=== PATIENT | female | born 1960 | race Caucasian/White ===

== ENCOUNTER 2022-03-05 10:38 | Inpatient (IN) ==
[2022-03-05] MEDS ORDERED: MARCAINE 0.5% ONE (11:03)
[2022-03-05] MEDS ORDERED: HEPARIN SODIUM IN D5W 75,000 UNITS/1,500 ML BAG ONE (11:03)
[2022-03-05] MEDS ORDERED: NS 1,000 ML IV 1,000 ML ONE ×2 (11:06→13:25)
[2022-03-05] MEDS ORDERED: ANCEF VIAL 1 GRAM ONE (11:08)
[2022-03-05] MEDS ORDERED: NS 100 ML IV 100 ML ONE (11:08)
[2022-03-05] MEDS: DUONEB 0.5 MG/3 MG (3 mL) NEB ONE ×2 (11:10→11:30)
[2022-03-05] MEDS ORDERED: DUONEB 0.5 MG/3 MG (3 mL) NEB ONE (11:12)
[2022-03-05 11:24] LABS: BASOPHILS # (AUTO) 0.1 X10^3/uL (0.0-0.1); BASOPHILS % (AUTO) 0.8 % (0.2-1.0); EOSINOPHILS # (AUTO) 0.2 x10^3/uL (0.0-0.2); HEMATOCRIT 44.4 % (36.0-47.0); HEMOGLOBIN 14.8 g/dL (12.0-16.0); LYMPHOCYTES # (AUTO) 2.7 X10^3/uL (1.3-2.9); LYMPHOCYTES % (AUTO) 27.5 % (21.0-51.0); MEAN CORPUSCULAR HEMOGLOBIN 29.4 pg (27.0-34.0); MEAN CORPUSCULAR HGB CONC 33.3 g/dL (33.0-35.0); MEAN CORPUSCULAR VOLUME 88.3 fL (80.0-100.0); MEAN PLATELET VOLUME 9.4 fL (7.4-11.0); MONOCYTES # (AUTO) 0.7 x10^3/uL (0.3-0.8); MONOCYTES % (AUTO) 6.6 % (0.0-13.0); NEUTROPHILS # (AUTO) 6.3 x10^3/uL (2.2-4.8); NEUTROPHILS % (AUTO) 63.1 % (42.0-75.0); RED BLOOD COUNT 5.03 X10^6/uL (3.5-5.4); RED CELL DISTRIBUTION WIDTH 15.1 % (11.6-16.5)
[2022-03-05 11:35] LABS: ALANINE AMINOTRANSFERASE 14 Units/L (12-78); ALBUMIN 3.4 g/dL (3.4-5.0); ALKALINE PHOSPHATASE 119 Units/L (46-116); ASPARTATE AMINO TRANSFERASE 12 Units/L (15-37); BLOOD UREA NITROGEN 15 mg/dL (7-18); CALCIUM 8.7 mg/dL (8.5-10.1); CARBON DIOXIDE 29.5 mmol/L (21-32); CHLORIDE 103 mmol/L (98-107); COR NA(FOR HYPERGLY) 138 mmol/L (136-145); CREATININE 0.81 mg/dL (0.55-1.02); SODIUM 138 mmol/L (136-145); TOTAL PROTEIN 7.5 g/dL (6.4-8.2); eGFR NON BLACK RACES > 60 (>60)
[2022-03-05] MEDS ORDERED: ULTANE GAS IN ONE (11:47)
[2022-03-05] MEDS ORDERED: FENTANYL VIAL INJ 100 mcg ONE (11:47)
[2022-03-05] MEDS ORDERED: PRECEDEX INJ VIAL IVP ONE (11:47)
[2022-03-05] MEDS ORDERED: XYLOCAINE 2 % (PLAIN) ONE (11:47)
[2022-03-05] MEDS ORDERED: VERSED ONE (11:47)
[2022-03-05] MEDS ORDERED: KETAMINE HCL ONE (11:47)
[2022-03-05] MEDS ORDERED: OFIRMEV IV 1000 MG VIAL 1,000 MG/100 ML VIAL IV ONE (11:58)
[2022-03-05] MEDS ORDERED: DIPRIVAN VIAL 40 ML ONE (12:09)
[2022-03-05] MEDS ORDERED: DILAUDID INJ ONE (12:20)
[2022-03-05] MEDS ORDERED: PROTAMINE SULFATE 50 MG VIAL ONE (12:36)
[2022-03-05] MEDS ORDERED: EPHEDRINE SULFATE INJ ONE (12:42)
--- NOTE | 2022-03-05 12:49 | OR.IMMED ---
IMMEDIATE POST-OP NOTE Immediate Post-Op Note Pre-Op Diagnosis: Bilateral iliac vein compression Post-Op Diagnosis: same Procedure: bilateral iliac venograms, bilateral iliac vein intravascular ultrasound, stenting left common and external iliac vein Description of Procedure: see operative summary Surgeon/Supplier Quality Engineer: Kizzy Findings: > 50 % compression both common and external iliac veins Specimens Removed: none Estimated Blood Loss: 50 cc Drains: NONE Complications: none Discharge Progress Notes: To same day surgery and will discharge home when ready. Follow up one week. Continue usual home medications including daily asp irin . Will add Xarelto, 2. 5 mg p o BID for 3 months. Patient will require stenting of the right iliac vein in the future . Condition: Stable Final Diagnosis: bilateral iliac vein compression
[2022-03-05] MEDS ORDERED: NEO-SYNEPHRINE INJ ONE (12:53)
[2022-03-05] MEDS ORDERED: ZEMURON 100 MG VIAL ONE (13:00)
[2022-03-05] MEDS ORDERED: AMIDATE INJ 40 MG VIAL ONE (13:00)
[2022-03-05] MEDS ORDERED: VASOSTRICT INJ 20 UNITS VIAL ONE (13:15)
[2022-03-05 13:42] LABS: CKMB % 0.8 % (<4)
--- NOTE | 2022-03-05 14:02 | CT ---
HISTORYPOSS. PE breast carcinoma lymph node dissectionSTUDYCTA CHESTCOMPARISONChest radiograph 01/04/2022TECHNIQUEMultiple CT axial images of the chest were obtained with IV contrast. Coronal and sagittal images were reconstructed. 3D reconstructions using axial MIPS imaging was performed and reviewed. Dose reduction techniques included Automated Exposure Control (AEC) and adjustment of mA and kV.Stenoses are measured using NASCET criteria.FINDINGSPulmonary arteries are identified to segmental branches. There are no pulmonary emboli.The heart is normal in size. Atherosclerotic calcification is present in the coronary arteries.The pulmonary artery and aorta have a normal caliber. No mediastinal mass or significant lymphadenopathy.The thyroid has a normal size and configuration. No axillary mass or significant axillary lymphadenopathy is identified. Surgical clips are present in the left axilla.The lungs are well inflated with no pneumonia or pleural effusion. Minimal paraseptal emphysema and centrilobular emphysema is present. Probable fissure lymph node in the right major fissure, image 91 series 7. Other tiny nodules are present. Largest measures 3 mm image 94 series 7 right middle lobe.Typically, this does not require any routine surveillance. If the patient is high risk for cancer, then you might consider an optional follow up chest CT in 12 months. This follow-up is based on recommendations established by the Fleischner Society 2017.Stone in the upper left kidney measures about 7 mm. No obvious hydronephrosis.Surgical clips are present in the gallbladder fossa from a cholecystectomy.Degenerative changes are present in the spine.IMPRESSION1. No pulmonary emboli2. Left renal calculus3. Few pulmonary nodules, see note4. EmphysemaElectronically signed by: Urbano Charlton (Mar 05, 2022 14:02:10)
[2022-03-05] MEDS ORDERED: DOPAMINE IV PREMIX 400 MG/250 ML 400 MG/250 ML BAG IV ONE (14:03)
[2022-03-05] MEDS ORDERED: DOPAMINE IV PREMIX 400 MG/250 ML 400 MG/250 ML BAG IV PRN (14:19)
--- NOTE | 2022-03-05 14:51 | RAD ---
HISTORYRelevant Clinical Information DYSPNEA.brSTUDYCHEST, 1 VIEWCOMPARISONFebruary 2021FINDINGSThe trachea is midline. The cardiac silhouette is unremarkable. The lungs are clear without focal infiltrate or effusion. The bony thorax is unremarkable.IMPRESSIONNo acute cardiopulmonary disease.Electronically signed by: LONNY ZENG (Mar 05, 2022 14:50:33)
[2022-03-05] MEDS: LR 1,000 ML IV 1,000 ML IV SCH (15:53)
[2022-03-05] MEDS: NS IV PRN (15:54)
[2022-03-05] MEDS: DOPAMINE HCL IV PRN (15:54)
[2022-03-05] MEDS: PROVENTIL NEB TX 0.083% 2.5MG/ 3ML NEB SCH ×2 (16:28→20:15)
[2022-03-05] MEDS ORDERED: HumaLOG SC PRN (16:29)
[2022-03-05] MEDS: NovoLIN R (or HumuLIN R) SUBCUT PRN ×2 (16:56→21:19)
[2022-03-05 18:24] LABS: CKMB % 1.6 % (<4); CREATINE KINASE MB 1.7 ng/mL (0-4.0)
[2022-03-05] MEDS: PULMICORT NEB TX 0.5 MG NEB SCH (20:15)
[2022-03-05] MEDS: SNACK - Diabetic Appropriate PO SCH (21:00)
[2022-03-05] MEDS ORDERED: FLEXERIL TAB 10 MG PO PRN (21:41)
[2022-03-05] MEDS ORDERED: NovoLIN R (or HumuLIN R) SC PRN (21:41)
[2022-03-05] MEDS ORDERED: NITROSTAT SL PRN (21:47)
--- NOTE | 2022-03-05 21:55 | PCM.PROG ---
Progress Note Progress Note for Day of Date of Exam: 03/05/22 Subjective Subjective: 61 year old morbidly obese female with a significant history of tobacco abuse , who had lower extremity arterial intervention recently and today had stenting of an iliac vein . This was done under IV sedation and as she was waking up she complained of shortness of breath. She became hypotensive. CT scan of the pulmonary arteries with contrast showed no pulmonary emboli . She required dopamine support of blood pressure. EKG showed only right bundle branch block with no acute ischemic changes. Initial troponin was negative. Repeat troponin at six hours was mildly elevated at 196. Denies chest pain. No further shortness of breath. He had a Lexiscan stress test before this procedure which was interpreted as negative for ischemia. Past Medical Family Social History Past Med/Fam/Surg Hx: No changes since H&P Allergies: Allergies codeine Allergy (Verified 01/08/22 09:58) Sulfa (Sulfonamide Antibiotics) [SULFA] Allergy (Verified 01/08/22 09:58) Vital Signs and I&O's Vital Signs: Temperature 97.9 F Pulse Rate 120 Respiratory Rate 18 Blood Pressure 105/58 O2 Sat by Pulse Oximetry 95 Intake and Output: Intake & Output 03/02/22 03/03/22 03/04/22 03/05/22 23:59 23:59 23:59 23:59 Intake Total 600 / 600 Output Total 50 / 50 Balance 550 / 550 Physical Exam Oriented: Normal Eyes: Normal Cardiovascular: Tachycardia and Other (Mildly hypotensive requiring dopamine to supporter blood pressure ) Tenderness: Normal Mood Description: Calm Speech Pattern: Clear and Appropriate Laboratory and Diagnostics Result Diagrams: 03/06/22 04:20 03/06/22 04:20 Labs: Laboratory WBC 10.0 X10^3/uL (3.6-10.0) 03/05/22 11:15 RBC 5.03 X10^6/uL (3.5-5.4) 03/05/22 11:15 Hgb 14.8 g/dL (12.0-16.0) 03/05/22 11:15 Hct 44.4 % (36.0-47.0) 03/05/22 11:15 MCV 88.3 fL (80.0-100.0) 03/05/22 11:15 MCH 29.4 pg (27.0-34.0) 03/05/22 11:15 MCHC 33.3 g/dL (33.0-35.0) 03/05/22 11:15 RDW 15.1 % (11.6-16.5) 03/05/22 11:15 Plt Count 228 X10^3/uL (150.0-450.0) 03/05/22 11:15 MPV 9.4 fL (7.4-11.0) 03/05/22 11:15 Neut % (Auto) 63.1 % (42.0-75.0) 03/05/22 11:15 Lymph % (Auto) 27.5 % (21.0-51.0) 03/05/22 11:15 [place] % (Auto) 6.6 % (0.0-13.0) 03/05/22 11:15 Eos % (Auto) 2.0 % (0.9-2.9) 03/05/22 11:15 Baso % (Auto) 0.8 % (0.2-1.0) 03/05/22 11:15 Neut # (Auto) 6.3 x10^3/uL (2.2-4.8) H 03/05/22 11:15 Lymph # (Auto) 2.7 X10^3/uL (1.3-2.9) 03/05/22 11:15 [place] # (Auto) 0.7 x10^3/uL (0.3-0.8) 03/05/22 11:15 Eos # (Auto) 0.2 x10^3/uL (0.0-0.2) 03/05/22 11:15 Baso # (Auto) 0.1 X10^3/uL (0.0-0.1) 03/05/22 11:15 Absolute Nucleated RBC 0.1 /100WBC 03/05/22 11:15 Sodium 138 mmol/L (136-145) 03/05/22 11:15 Corrected Sodium 138 mmol/L (136-145) 03/05/22 11:15 Potassium 3.9 mmol/L (3.5-5.1) 03/05/22 11:15 Chloride 103 mmol/L (98-107) 03/05/22 11:15 Carbon Dioxide 29.5 mmol/L (21-32) 03/05/22 11:15 BUN 15 mg/dL (7-18) 03/05/22 11:15 Creatinine 0.81 mg/dL (0.55-1.02) 03/05/22 11:15 Est GFR (MDRD) Af Amer > 60 (>60) 03/05/22 11:15 Est GFR (MDRD) Non-Af > 60 (>60) 03/05/22 11:15 Glucose 120 mg/dL (65-99) H 03/05/22 11:15 POC Glucose (mg/dL) 263 mg/dL (65-99) H 03/05/22 19:40 Calcium 8.7 mg/dL (8.5-10.1) 03/05/22 11:15 Corrected Calcium TNP 03/05/22 11:15 Total Bilirubin 0.30 mg/dL (0.2-1.0) 03/05/22 11:15 AST 12 Units/L (15-37) L 03/05/22 11:15 ALT 14 Units/L (12-78) 03/05/22 11:15 Alkaline Phosphatase 119 Units/L (46-116) H 03/05/22 11:15 Creatine Kinase 107 Units/L (26-192) 03/05/22 17:47 CK-MB (CK-2) 1.7 ng/mL (0-4.0) 03/05/22 17:47 CK/CKMB % Calc 1.6 % (<4) 03/05/22 17:47 Troponin I High Sens 197.6 ng/L (4.0-60.0) H* 03/05/22 17:47 Total Protein 7.5 g/dL (6.4-8.2) 03/05/22 11:15 Albumin 3.4 g/dL (3.4-5.0) 03/05/22 11:15 Globulin 4.1 g/dL (2.5-4.5) 03/05/22 11:15 Albumin/Globulin Ratio 0.8 Ratio (1.1-2.1) L 03/05/22 11:15 SARS CoV-2 RNA Rapid SUZIE Negative (NEGATIVE) 03/05/22 10:55 Plan (1) Shortness of breath: Status: Acute Plan: transfer patient to ICU and continue to observe. Remain NPO for now. Dopamine to support blood pressure .Will consult Internal Medicine. (2) Hypotension: Status: Acute
[2022-03-05] MEDS: LYRICA CAP 150 mg PO SCH (23:30)
[2022-03-06] MEDS ORDERED: ACCUNEB 1.25 MG NEBULE NEB SCH
[2022-03-06] MEDS: NS IV PRN (01:49)
[2022-03-06] MEDS: DOPAMINE HCL IV PRN (01:49)
[2022-03-06] MEDS: LR 1,000 ML IV 1,000 ML IV SCH (05:27)
[2022-03-06] MEDS: NovoLIN R (or HumuLIN R) SUBCUT PRN ×2 (05:53→10:34)
[2022-03-06] MEDS: LYRICA CAP 150 mg PO SCH ×3 (05:55→21:15)
[2022-03-06] MEDS: PriLOSEC PO SCH (08:14)
[2022-03-06] MEDS: ASPIRIN 81 MG CHEWTAB PO SCH (08:14)
[2022-03-06] MEDS: TENORMIN PO SCH (08:15)
[2022-03-06] MEDS: ZOLOFT PO SCH (08:15)
[2022-03-06] MEDS: TRICOR TAB 145 MG PO SCH (08:15)
[2022-03-06] MEDS: PROVENTIL NEB TX 0.083% 2.5MG/ 3ML NEB SCH ×4 (08:20→20:07)
[2022-03-06] MEDS: PULMICORT NEB TX 0.5 MG NEB SCH ×2 (08:20→20:07)
[2022-03-06] MEDS ORDERED: LASIX PO SCH (09:00)
[2022-03-06] MEDS ORDERED: LIPITOR TAB 20 MG PO SCH (09:00)
[2022-03-06] MEDS ORDERED: REFLEX: PROVENTIL NEB & PulmiCORT NEB~ NEB SCH (09:00)
[2022-03-06 09:25] LABS: BASOPHILS # (AUTO) 0.1 X10^3/uL (0.0-0.1); BASOPHILS % (AUTO) 0.5 % (0.2-1.0); EOSINOPHILS # (AUTO) 0.1 x10^3/uL (0.0-0.2); EOSINOPHILS % (AUTO) 0.3 % (0.9-2.9); HEMATOCRIT 43.4 % (36.0-47.0); LYMPHOCYTES % (AUTO) 11.8 % (21.0-51.0); MEAN CORPUSCULAR HGB CONC 32.4 g/dL (33.0-35.0); MEAN CORPUSCULAR VOLUME 89.7 fL (80.0-100.0); MEAN PLATELET VOLUME 10.2 fL (7.4-11.0); MONOCYTES % (AUTO) 6.1 % (0.0-13.0); NEUTROPHILS # (AUTO) 13.9 x10^3/uL (2.2-4.8); NEUTROPHILS % (AUTO) 81.3 % (42.0-75.0); RED BLOOD COUNT 4.83 X10^6/uL (3.5-5.4); RED CELL DISTRIBUTION WIDTH 15.5 % (11.6-16.5); WHITE BLOOD COUNT 17.1 X10^3/uL (3.6-10.0)
[2022-03-06 09:35] LABS: ALANINE AMINOTRANSFERASE 19 Units/L (12-78); ALKALINE PHOSPHATASE 102 Units/L (46-116); ASPARTATE AMINO TRANSFERASE 16 Units/L (15-37); BLOOD UREA NITROGEN 15 mg/dL (7-18); CALCIUM 8.1 mg/dL (8.5-10.1); CARBON DIOXIDE 26.6 mmol/L (21-32); CHLORIDE 103 mmol/L (98-107); COR CA(FOR HYPOALB) 8.9 mg/dL (8.5-10.1); COR NA(FOR HYPERGLY) 139 mmol/L (136-145); CREATININE 1.03 mg/dL (0.55-1.02); SODIUM 135 mmol/L (136-145); TOTAL PROTEIN 6.1 g/dL (6.4-8.2); eGFR NON BLACK RACES 58 (>60)
--- NOTE | 2022-03-06 09:49 | DR.CONSULT ---
CONSULT Consultation for Day of: Date: 03/06/22 Chief Complaint Chief Complaint: Patient admitted after outpatient procedure, left iliac stenting. Allergies Allergies Allergy/AdvReac Type Severity Reaction Status Date / Time codeine Allergy Verified 01/08/22 09:58 Sulfa (Sulfonamide Allergy Verified 01/08/22 09:58 Antibiotics) [SULFA] History of Present Illness History of Present Illness: Ms Andrews is a 61y/o female who had outpatient surgery yesterday for left iliac vein stenting. Patient had no complications during the procedure. After the procedure, she was noted to be hypotensive with dyspnea and chest pain. Patient does not recall this happening. She was admitted to ICU for closer monitoring. CT-chest was done which did not show PE. Patient was started on dopamine for hypotension. Her first set of cardiac enzymes were negative, 2nd troponin was elevated. She did not have any acute EKG changes. Patient has not had any chest pain overnight. Denies chest pain on exam. She is currently on 2L NC. She states she feels fine. She had a stress test in 2019, negative for ischemia. She also reports possibly having a calcium score which w as also normal. She sees cardiology outpatient. She states she was told in the past that she has a elevated heart rate. She is not sure if she has atrial fibrillation but does take atenolol and Xarelto. Dr Durand consulted medicine for further evaluation. Patient denies having any chest pain prior to the procedure Labs/imaging reviewed LARA score: 3 - intermediate risk Plan: repeat CBC, CMP, follow up on cardiac enzymes. Repeat EKG. Patient denies chest pain or any symptoms at this time. Wean dopamine as tolerated to keep MAP > 65. Patient is currently on 4mcg/hr. Will start heparin drip. Continue hydration with IVF. Hold all anti-hypertensives. Nitro prn for chest pain. Wean O2 as tolerated to keep sats > 92%. Continue home medications. Monitor AM labs/imaging. Past Medical History Past Medical History: Diabetes, Dyslipidemia and Hypertension Social History Does patient currently use any type of tobacco product: Yes Have you used tobacco products in the last 12 months: Yes Type of Tobacco Use: Cigarettes Packs per day or dips/chews per day: LESS THAN 1 PACK DAILY Alcohol Use: None Drug Use: None Medications Home Medications: codeine Allergy (Verified 01/08/22 09:58) Sulfa (Sulfonamide Antibiotics) [SULFA] Allergy (Verified 01/08/22 09:58) CONTINUE taking the following medications albuterol [Ventolin] 108 mcg INHALATION QID 03/05/22 [History] aspirin 81 mg PO DAILY 03/05/22 [History] atenolol 25 mg PO DAILY 03/05/22 [History] atorvastatin 20 mg PO DAILY 03/05/22 [History] budesonide-formoterol [Symbicort] 2 inh INHALATION DAILY 03/05/22 [History] cholecalciferol (vitamin D3) 50 mcg PO DAILY 03/05/22 [History] dulaglutide [Trulicity] 1.5 mg SUBCUT WEEKLY 03/05/22 [History] ergocalciferol (vitamin D2) 1.25 mcg PO WEEKLY 03/05/22 [History] exemestane 25 mg PO DAILY 03/05/22 [History] fenofibrate nanocrystallized 145 mg PO DAILY 03/05/22 [History] furosemide 40 mg PO DAILY 03/05/22 [History] insulin regular hum U-500 conc [Humulin R U-500 (Conc) Insulin] 03/05/22 [History] lisinopril 2 mg PO DAILY 03/05/22 [History] meloxicam [Mobic] 7.5 mg PO ONCE 03/05/22 [History] nitroglycerin [Nitrostat] 0.4 mg SUBLINGUAL DIRECTED PRN 03/05/22 [History] nystatin [Nystop] 100,000 unit TOPICAL BID 03/05/22 [History] omega-3 fatty acids [[place] 3] 1,000 mg PO TID 03/05/22 [History] omeprazole 20 mg PO DAILY 03/05/22 [History] pregabalin [Lyrica] 150 mg PO TID 03/05/22 [History] sertraline 50 mg PO DAILY 03/05/22 [History] Review of Systems Constitutional: No Symptoms Reported Eyes: No Symptoms Reported ENT: No Symptoms Reported Respiratory: Shortness of Breath Cardiovascular: denies Chest Pain, Palpitations and Edema Gastrointestinal: No Symptoms Reported Genitourinary: No Symptoms Reported Musculoskeletal: No Symptoms Reported Skin: No Symptoms Reported Neurological: No Symptoms Reported Physical Exam Vital Signs: Temperature 98.9 F Pulse Rate 108 Respiratory Rate 19 Blood Pressure 115/56 O2 Sat by Pulse Oximetry 96 Oriented: Normal Ear: Normal Nose: Normal Throat: Normal Respiratory: Clear Throughout Cardiovascular: Tachycardia Auscultation: Bowel Sounds: Normal Palpation: Normal Tenderness: Normal Skin: Normal and Other (left groin - no signs of hematoma, non-tender ) Musculoskeletal: Normal Psychiatric: Normal Mood Description: Calm Affect: Normal Speech Pattern: Clear and Appropriate Plan (1) Shortness of breath: Status: Acute (2) Hypotension: Status: Acute Qualifiers: Hypotension type: postprocedural hypotension Qualified Code(s): I95.81 - Postprocedural hypotension (3) NSTEMI (non-ST elevated myocardial infarction): Status: Acute (4) HLD (hyperlipidemia): Status: Acute Qualifiers: Hyperlipidemia type: unspecified Qualified Code(s): E78.5 - Hyperlipidemia, unspecified (5) PVD (peripheral vascular disease): Status: Acute (6) Diabetes: Status: Acute Qualifiers: Diabetes mellitus complication status: without complication 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
[2022-03-06] MEDS ORDERED: LOVENOX INJ 40 MG SYR SC SCH (10:00)
[2022-03-06 10:06] LABS: CKMB % 2.3 % (<4); CREATINE KINASE MB 2.1 ng/mL (0-4.0)
[2022-03-06 10:23] VITALS: BMI 38.9
[2022-03-06] MEDS ORDERED: HEPARIN SODIUM INJ 5000 UNITS IVP ONE (12:22)
[2022-03-06] MEDS: HEPARIN SODIUM IN D5W 25,000 UNITS/500 ML BAG IV PRN (12:45)
[2022-03-06] MEDS ORDERED: HumaLOG SC ONE (13:31)
[2022-03-06] MEDS ORDERED: NovoLIN R (or HumuLIN R) SC PRN (14:07)
[2022-03-06] MEDS: NS 1,000 ML IV 1,000 ML IV SCH (15:25)
[2022-03-06 15:44] LABS: CKMB % 2.1 % (<4); CREATINE KINASE MB 3.3 ng/mL (0-4.0)
--- NOTE | 2022-03-06 15:55 | DR.OPNOTE ---
OP NOTE Pre-Op Diagnosis: Bilateral iliac vein compression Post-Op Diagnosis: same Procedure Date Date Of Procedure: 03/05/22 Procedure: PROCEDURE: bilateral iliac venograms, bilateral iliac vein IVUS, stenting left iliac vein NARRATIVE: The patient was taken to the operating suite and placed in the Supine position. She was given intravenous sedation which was supervised by myself. Time out for the procedure obtained . Both groins had been prepped and draped in sterile fashion. Ultrasound used to identify the left common femoral vein and the skin overlying it infiltrated with 0. 5% Marcaine . Ultrasound used to guide puncture of the left common femoral vein and a 0. 012 inch guide wire placed without difficulty. Incision made over the guidewire at the skin edge with a number 11 knife blade and a micro sheath placed over the guide wire into the left common femoral vein. The small wire exchanged for a 0. 035 inch Advantage glidewire and the small sheath exchanged for a 10 Fr. vascular sheath. Ultrasound used to identify the right common femoral vein and the skin overlying it infiltrated with 0. 5% Marcaine. Ultrasound used to guide puncture of the right common femoral vein and a 0. 012 inch guidewire placed without difficulty. Incision made over the guide wire at the skin edge with a number 11 knife blade and a micro sheath placed over the guide wire into the right common femoral vein. The small guidewire exchange for a 0. 035 inch Advantage glidewire and the small sheath exchanged for a 10 [place] vascular sheath. Patient was administered 5000 units of intravenous Heparin at this point. Bilateral iliac being venograms carried out suggesting significant compression of both common iliac veins. This was confirmed with bilateral iliac vein intravascular ultrasound showed greater than 50% compression of both common iliac veins. A 16 mm by 90 mm Venous Wall stent was placed on the left covering the area of compression of the left common iliac vein extending into the external iliac vein. This was ballooned open with a 16 mm x 60 mm esophageal balloon. Post-procedure intravascular ultrasound confirmed an excellent result. Wires and sheaths removed from each groin and the patient given 30 mg of IV protamine. Direct pressure held over each puncture site for 10 minutes then covered with a hemostatic dressing. During the procedure there was no problems noted .On the patient coming out of sedation she complained of shortness of breath and was hypotensive. She was taken to the CT scanner where a stat CT scan showed no evidence of pulmonary emboli. Chest x-ray showed no abnormalities . She required a dopamine drip and will be transferred to the ICU. Initial cardiac enzymes were negative. Type of Anesthesia: Local (0.5 % Marcaine ) Anesthesia Comment: plus MAC Findings: Bilateral iliac vein compression > 50% each side Specimen/Pathology: none Type of Fluids Used:: Lactated Ringers Total Amount of Fluid Infused:: 400 cc EBL: 50 cc Drains/Tubes Placed: None Hardware: Stent placed left iliac vein Complications:: none Needle/Sponge Count:: correct Disposition/Condition: Pt. tolerated procedure without difficulty. Extubated in the OR and taken to PACU in stable condition.
[2022-03-06] MEDS: HumaLOG SC PRN ×2 (16:52→20:26)
[2022-03-06] MEDS: SNACK - Diabetic Appropriate PO SCH (19:47)
[2022-03-06] MEDS ORDERED: LANTUS SC SCH (21:00)
--- NOTE | 2022-03-06 23:54 | NOTE.SOAP ---
Soap Note Note for Day of Date of Exam: 03/06/22 Subjective Data Subjective Data: POD # 1 after stenting left iliac vein . Had SOB post op , negative CT for PE. . No EKG changes . Elevation of Troponin. Seen by Dr. Gaytan in consultation and started on Heparin drip. Was on Dopamine this AM and was tachycardic. Now weaned from the dopamine, no chest pain, stable BP and not tachycardic Objective Data Pulse Rate: 86 Respiratory Rate: 16 Blood Pressure: 146/57 O2 Sat by Pulse Oximetry: 93 Objective Data: HgB=14.0 Left leg feels better after left iliac vein stenting. Assessment Assessment: Await final input from internal medicine. Hopefully can be discharged home soon. Plan Plan: as above
[2022-03-07 02:02] LABS: BASOPHILS # (AUTO) 0.1 X10^3/uL (0.0-0.1); BASOPHILS % (AUTO) 0.7 % (0.2-1.0); EOSINOPHILS # (AUTO) 0.3 x10^3/uL (0.0-0.2); EOSINOPHILS % (AUTO) 2.6 % (0.9-2.9); HEMATOCRIT 40.4 % (36.0-47.0); LYMPHOCYTES # (AUTO) 2.7 X10^3/uL (1.3-2.9); LYMPHOCYTES % (AUTO) 26.4 % (21.0-51.0); MEAN CORPUSCULAR HEMOGLOBIN 28.9 pg (27.0-34.0); MEAN CORPUSCULAR HGB CONC 32.1 g/dL (33.0-35.0); MEAN CORPUSCULAR VOLUME 90.2 fL (80.0-100.0); MEAN PLATELET VOLUME 9.9 fL (7.4-11.0); MONOCYTES # (AUTO) 0.5 x10^3/uL (0.3-0.8); MONOCYTES % (AUTO) 4.9 % (0.0-13.0); NEUTROPHILS # (AUTO) 6.8 x10^3/uL (2.2-4.8); NEUTROPHILS % (AUTO) 65.4 % (42.0-75.0); RED BLOOD COUNT 4.48 X10^6/uL (3.5-5.4); WHITE BLOOD COUNT 10.4 X10^3/uL (3.6-10.0)
[2022-03-07 02:08] LABS: BLOOD UREA NITROGEN 12 mg/dL (7-18); CALCIUM 8.2 mg/dL (8.5-10.1); CARBON DIOXIDE 25.3 mmol/L (21-32); CHLORIDE 101 mmol/L (98-107); COR NA(FOR HYPERGLY) 140 mmol/L (136-145); CREATININE 0.95 mg/dL (0.55-1.02); SODIUM 137 mmol/L (136-145); eGFR NON BLACK RACES > 60 (>60)
[2022-03-07 02:41] LABS: ALANINE AMINOTRANSFERASE 15 Units/L (12-78); ALBUMIN 3.1 g/dL (3.4-5.0); ALKALINE PHOSPHATASE 103 Units/L (46-116); ASPARTATE AMINO TRANSFERASE 18 Units/L (15-37); CKMB % 1.6 % (<4); COR CA(FOR HYPOALB) 8.9 mg/dL (8.5-10.1); CREATINE KINASE 192 Units/L (26-192); CREATINE KINASE MB 3.1 ng/mL (0-4.0); TOTAL PROTEIN 6.9 g/dL (6.4-8.2)
[2022-03-07] MEDS: NS 1,000 ML IV 1,000 ML IV SCH (05:29)
[2022-03-07] MEDS: LYRICA CAP 150 mg PO SCH (05:29)
[2022-03-07] MEDS: HumaLOG SC PRN ×2 (05:30→11:26)
[2022-03-07] MEDS: HEPARIN SODIUM IN D5W 25,000 UNITS/500 ML BAG IV PRN (06:25)
[2022-03-07] MEDS: ASPIRIN 81 MG CHEWTAB PO SCH (08:04)
[2022-03-07] MEDS: TRICOR TAB 145 MG PO SCH (08:05)
[2022-03-07] MEDS: ZOLOFT PO SCH (08:05)
[2022-03-07] MEDS: TENORMIN PO SCH (08:05)
[2022-03-07] MEDS: PriLOSEC PO SCH (08:05)
[2022-03-07] MEDS: PULMICORT NEB TX 0.5 MG NEB SCH (08:30)
[2022-03-07] MEDS: PROVENTIL NEB TX 0.083% 2.5MG/ 3ML NEB SCH ×2 (08:30→13:12)
[2022-03-07] MEDS ORDERED: LIPITOR TAB 20 MG PO SCH (09:00)
--- NOTE | 2022-03-07 12:15 | DR.CARD ---
Cardiology Consult Consultation for Day of: Date: 03/07/22 Chief Complaint Chief Complaint: Abnormal Troponins Allergies Allergies Allergy/AdvReac Type Severity Reaction Status Date / Time codeine Allergy Verified 01/08/22 09:58 Sulfa (Sulfonamide Allergy Verified 01/08/22 09:58 Antibiotics) [SULFA] History of Present Illness History of Present Illness: Patient is a 61yo F with PMHx DM2, HTN, HLD, PVD, previous HI, smoker. She was at [facility] for venous procedure. When in postop she experienced significant shortness of of breath and "felt like she was about to ." She was hypotensive and ecg showed RBBB with st seg changes. They stabilized her BP with dopamine drip and collected a CTA which was negative for PE. She then had trops drawn which were positive. Cardiology was consulted. Patient shares that she had not been experienced chest pain prior to admission. While inpatient she has experienced intermittent chest discomfort described as a sharp chest pain shooting from right lower chest to upper left chest. Past Medical History Past Medical History: Diabetes, Dyslipidemia, Hypertension and HI (reports HI 2006/2007) Past Surgical History Surgical History: Angioplasty/Stents (Venous) and Mastectomy Additional Surgical History: Cholecystecomy, hysterectomy, back surgery, factor II deficiency Social History Does patient currently use any type of tobacco product: Yes Have you used tobacco products in the last 12 months: Yes Type of Tobacco Use: Cigarettes Packs per day or dips/chews per day: LESS THAN 1 PACK DAILY Alcohol Use: None Drug Use: None Medications Home Medications: codeine Allergy (Verified 01/08/22 09:58) Sulfa (Sulfonamide Antibiotics) [SULFA] Allergy (Verified 01/08/22 09:58) CONTINUE taking the following medications albuterol [Ventolin] 108 mcg INHALATION QID 03/05/22 [History] aspirin 81 mg PO DAILY 03/05/22 [History] atenolol 25 mg PO DAILY 03/05/22 [History] atorvastatin 20 mg PO DAILY 03/05/22 [History] budesonide-formoterol [Symbicort] 2 inh INHALATION DAILY 03/05/22 [History] cholecalciferol (vitamin D3) 50 mcg PO DAILY 03/05/22 [History] dulaglutide [Trulicity] 1.5 mg SUBCUT WEEKLY 03/05/22 [History] ergocalciferol (vitamin D2) 1.25 mcg PO WEEKLY 03/05/22 [History] exemestane 25 mg PO DAILY 03/05/22 [History] fenofibrate nanocrystallized 145 mg PO DAILY 03/05/22 [History] furosemide 40 mg PO DAILY 03/05/22 [History] insulin regular hum U-500 conc [Humulin R U-500 (Conc) Insulin] 03/05/22 [History] lisinopril 2 mg PO DAILY 03/05/22 [History] meloxicam [Mobic] 7.5 mg PO ONCE 03/05/22 [History] nitroglycerin [Nitrostat] 0.4 mg SUBLINGUAL DIRECTED PRN 03/05/22 [History] nystatin [Nystop] 100,000 unit TOPICAL BID 03/05/22 [History] omega-3 fatty acids [[place] 3] 1,000 mg PO TID 03/05/22 [History] omeprazole 20 mg PO DAILY 03/05/22 [History] pregabalin [Lyrica] 150 mg PO TID 03/05/22 [History] sertraline 50 mg PO DAILY 03/05/22 [History] Review of Systems Respiratory: Shortness of Breath Cardiovascular: Chest Pain Gastrointestinal: Nausea Physical Exam Vital Signs: Temperature 97.9 F Pulse Rate 84 Respiratory Rate 20 Blood Pressure 110/51 O2 Sat by Pulse Oximetry 90 Oriented: Normal, Time, Person, Place and Not Oriented Eyes: Normal Ear: Normal Nose: Normal Respiratory: Clear Throughout Cardiovascular: Normal (RRR, no murmur, rub, or gallop); negative Murmur Auscultation: Bowel Sounds: Normal Palpation: Normal Tenderness: Normal Skin: Normal Musculoskeletal: Normal Psychiatric: Normal Mood Description: Calm Affect: Normal Speech Pattern: Clear Medical Decision Making Reason for Consult: Chest Pain Results Reviewed: Previous Record EKG Results: RBBB Labs reviewed: Yes Significant abnormal labs: Trops as above Radiology Reviewed: Yes Significant Abnormal Xray: neg CTA for PE Plan Plan: 1. Abnormal troponins, NSTEMI a. post operative shortness of breath, hypotension, near syncope b. trops 231 --> 152 --> 109 c. ecg RBBB with NSST d. chest pain during inpatient with with major RF for CAD e. [facility]
--- NOTE | 2022-03-07 12:42 | PCM.PROG ---
Progress Note Progress Note for Day of Date of Exam: 03/07/22 Subjective Subjective: Patient seen at bedside, no events overnight. She states she feels better. She denies having any further episodes of chest pain or tightness. She is on 2L NC, sats above 95%. She does use CPAP at night. She has been ambulating to the bathroom. Patient has been off dopamine drip since yesterday afternoon. Her BP has been stable. Labs reviewed: troponin did trend down Plan: continue heparin drip. Will consult cardiology Dr Roberts. Patient does have significant risk factors including obesity, PVD, HTN, HLD, DM and tobacco user. She states she saw her radio personality recently and was told she did not need any further testing. Will f/u on cardiology recommendations. Continue current management as per Dr Durand. Past Medical Family Social History Past Med/Fam/Surg Hx: No changes since H&P Allergies: Allergies codeine Allergy (Verified 01/08/22 09:58) Sulfa (Sulfonamide Antibiotics) [SULFA] Allergy (Verified 01/08/22 09:58) Review of Systems ROS: No change since H&P Vital Signs and I&O's Vital Signs: Temperature 97.9 F Pulse Rate 76 Respiratory Rate 20 Blood Pressure 118/57 O2 Sat by Pulse Oximetry 93 Intake and Output: Intake & Output 03/04/22 03/05/22 03/06/22 03/07/22 23:59 23:59 23:59 23:59 Intake Total 1441 / 1441 4143 / 4143 1080 / 1080 Output Total 50 / 50 1700 / 1700 Balance 1391 / 1391 2443 / 2443 1080 / 1080 Physical Exam Oriented: Normal Eyes: Normal Ear: Normal Nose: Normal Throat: Normal Cardiovascular: Normal (RRR, no murmur, rub, or gallop); negative Murmur Auscultation: Bowel Sounds: Normal Tenderness: Normal Skin: Normal Musculoskeletal: Normal Psychiatric: Normal Mood Description: Calm Affect: Normal Speech Pattern: Clear Laboratory and Diagnostics Result Diagrams: 03/07/22 01:50 03/07/22 01:50 Labs: Laboratory WBC 10.4 X10^3/uL (3.6-10.0) H 03/07/22 01:50 RBC 4.48 X10^6/uL (3.5-5.4) 03/07/22 01:50 Hgb 13.0 g/dL (12.0-16.0) 03/07/22 01:50 Hct 40.4 % (36.0-47.0) 03/07/22 01:50 MCV 90.2 fL (80.0-100.0) 03/07/22 01:50 MCH 28.9 pg (27.0-34.0) 03/07/22 01:50 MCHC 32.1 g/dL (33.0-35.0) L 03/07/22 01:50 RDW 15.0 % (11.6-16.5) 03/07/22 01:50 Plt Count 177 X10^3/uL (150.0-450.0) 03/07/22 01:50 MPV 9.9 fL (7.4-11.0) 03/07/22 01:50 Neut % (Auto) 65.4 % (42.0-75.0) 03/07/22 01:50 Lymph % (Auto) 26.4 % (21.0-51.0) 03/07/22 01:50 [place] % (Auto) 4.9 % (0.0-13.0) 03/07/22 01:50 Eos % (Auto) 2.6 % (0.9-2.9) 03/07/22 01:50 Baso % (Auto) 0.7 % (0.2-1.0) 03/07/22 01:50 Neut # (Auto) 6.8 x10^3/uL (2.2-4.8) H 03/07/22 01:50 Lymph # (Auto) 2.7 X10^3/uL (1.3-2.9) 03/07/22 01:50 [place] # (Auto) 0.5 x10^3/uL (0.3-0.8) 03/07/22 01:50 Eos # (Auto) 0.3 x10^3/uL (0.0-0.2) H 03/07/22 01:50 Baso # (Auto) 0.1 X10^3/uL (0.0-0.1) 03/07/22 01:50 Absolute Nucleated RBC 0.1 /100WBC 03/07/22 01:50 PT 18.3 SECONDS (11.8-14.3) 03/06/22 11:27 INR Target Range - 03/06/22 11:27 INR 1.58 (0.8-1.3) H 03/06/22 11:27 APTT 76.8 SECONDS (22.9-36.5) H 03/07/22 08:08 PTT Comment - 03/07/22 08:08 Sodium 137 mmol/L (136-145) 03/07/22 01:50 Corrected Sodium 140 mmol/L (136-145) 03/07/22 01:50 Potassium 3.9 mmol/L (3.5-5.1) 03/07/22 01:50 Chloride 101 mmol/L (98-107) 03/07/22 01:50 Carbon Dioxide 25.3 mmol/L (21-32) 03/07/22 01:50 BUN 12 mg/dL (7-18) 03/07/22 01:50 Creatinine 0.95 mg/dL (0.55-1.02) 03/07/22 01:50 Est GFR (MDRD) Af Amer > 60 (>60) 03/07/22 01:50 Est GFR (MDRD) Non-Af > 60 (>60) 03/07/22 01:50 Glucose 210 mg/dL (65-99) H 03/07/22 01:50 POC Glucose (mg/dL) 204 mg/dL (65-99) H 03/07/22 11:25 Hemoglobin A1c 6.8 % 03/06/22 04:20 Calcium 8.2 mg/dL (8.5-10.1) L 03/07/22 01:50 Corrected Calcium 8.9 mg/dL (8.5-10.1) 03/07/22 01:50 Total Bilirubin 0.30 mg/dL (0.2-1.0) 03/07/22 01:50 AST 18 Units/L (15-37) 03/07/22 01:50 ALT 15 Units/L (12-78) 03/07/22 01:50 Alkaline Phosphatase 103 Units/L (46-116) 03/07/22 01:50 Creatine Kinase 192 Units/L (26-192) 03/07/22 01:50 CK-MB (CK-2) 3.1 ng/mL (0-4.0) 03/07/22 01:50 CK/CKMB % Calc 1.6 % (<4) 03/07/22 01:50 Troponin I High Sens 109.0 ng/L (4.0-60.0) H* 03/07/22 01:50 Total Protein 6.9 g/dL (6.4-8.2) 03/07/22 01:50 Albumin 3.1 g/dL (3.4-5.0) L 03/07/22 01:50 Globulin 3.8 g/dL (2.5-4.5) 03/07/22 01:50 Albumin/Globulin Ratio 0.8 Ratio (1.1-2.1) L 03/07/22 01:50 SARS CoV-2 RNA Rapid SUZIE Negative (NEGATIVE) 03/05/22 10:55 Plan (1) Shortness of breath: Status: Acute (2) Hypotension: Status: Acute Qualifiers: Hypotension type: postprocedural hypotension Qualified Code(s): I95.81 - Postprocedural hypotension (3) NSTEMI (non-ST elevated myocardial infarction): Status: Acute (4) HLD (hyperlipidemia): Status: Acute Qualifiers: Hyperlipidemia type: unspecified Qualified Code(s): E78.5 - Hyper lipidemia, unspecified (5) PVD (peripheral vascular disease): Status: Acute (6) Diabetes: Status: Acute Qualifiers: Diabetes mellitus complication status: without complication Diabetes mellitus terminal worker insulin use: unspecified chcf insulin use status Diabetes mellitus type: type 2 Qualified Code(s): E11.9 - Type 2 diabetes mellitus without complications (7) COPD (chronic obstructive pulmonary disease): Status: Acute Qualifiers: COPD type: unspecified COPD Qualified Code(s): J44.9 - Chronic obstructive pulmonary disease, unspecified
[2022-03-07 13:58] VITALS: BP 109/59
== END 2022-03-07 13:35 | disposition short-term general hospital (02) | DRG 252 ==
LOC: SURG1 10:38 → ICU 10:38 → OBSVTOIN 13:54
PROVIDERS: ADMIT Surgery; ATTEND Surgery

== ENCOUNTER 2022-07-24 11:19 | Inpatient (IN) ==
[2022-07-24] MEDS ORDERED: NITROSTAT SL PRN (13:53)
[2022-07-24] MEDS ORDERED: PROVENTIL NEB TX 0.083% 2.5MG/ 3ML NEB SCH (14:00)
[2022-07-24] MEDS ORDERED: REFLEX: PROVENTIL NEB & PulmiCORT NEB~ NEB SCH (14:00)
[2022-07-24 14:33] LABS: BASOPHILS # (AUTO) 0.2 X10^3/uL (0.0-0.1); BASOPHILS % (AUTO) 2.2 % (0.2-1.0); EOSINOPHILS # (AUTO) 0.2 x10^3/uL (0.0-0.2); EOSINOPHILS % (AUTO) 1.7 % (0.9-2.9); HEMATOCRIT 45.5 % (36.0-47.0); HEMOGLOBIN 15.2 g/dL (12.0-16.0); LYMPHOCYTES # (AUTO) 2.2 X10^3/uL (1.3-2.9); LYMPHOCYTES % (AUTO) 22.3 % (21.0-51.0); MEAN CORPUSCULAR HEMOGLOBIN 29.4 pg (27.0-34.0); MEAN CORPUSCULAR HGB CONC 33.4 g/dL (33.0-35.0); MEAN PLATELET VOLUME 10.8 fL (7.4-11.0); MONOCYTES # (AUTO) 0.6 x10^3/uL (0.3-0.8); MONOCYTES % (AUTO) 6.4 % (0.0-13.0); NEUTROPHILS # (AUTO) 6.8 x10^3/uL (2.2-4.8); NEUTROPHILS % (AUTO) 67.4 % (42.0-75.0); RED BLOOD COUNT 5.17 X10^6/uL (3.5-5.4); RED CELL DISTRIBUTION WIDTH 14.9 % (11.6-16.5); WHITE BLOOD COUNT 10.1 X10^3/uL (3.6-10.0)
[2022-07-24 14:44] VITALS: BMI 34.0
[2022-07-24] MEDS: DILAUDID INJ IVP PRN ×2 (14:53→19:18)
[2022-07-24] MEDS: LYRICA CAP 150 mg PO SCH ×2 (14:53→21:10)
[2022-07-24] MEDS: LR 1,000 ML IV 1,000 ML IV SCH (15:06)
[2022-07-24 15:07] LABS: ALANINE AMINOTRANSFERASE 20 Units/L (12-78); ALBUMIN 3.6 g/dL (3.4-5.0); ALKALINE PHOSPHATASE 124 Units/L (46-116); ASPARTATE AMINO TRANSFERASE 16 Units/L (15-37); BLOOD UREA NITROGEN 11 mg/dL (7-18); CALCIUM 9.4 mg/dL (8.5-10.1); CARBON DIOXIDE 30.5 mmol/L (21-32); CHLORIDE 98 mmol/L (98-107); COR NA(FOR HYPERGLY) 136 mmol/L (136-145); CREATININE 0.96 mg/dL (0.55-1.02); SODIUM 135 mmol/L (136-145); TOTAL PROTEIN 7.9 g/dL (6.4-8.2); eGFR NON BLACK RACES > 60 (>60)
[2022-07-24] MEDS ORDERED: VENTOLIN or PROAIR HFA IN SCH (17:00)
[2022-07-24] MEDS: PROVENTIL NEB TX 0.083% 2.5MG/ 3ML NEB SCH ×2 (17:00→20:29)
--- NOTE | 2022-07-24 17:13 | VAS ---
Ultrasound bilateral lower extremity venous DopplerIndication: Left leg ischemiaTECHNIQUEDynamic grayscale, color spectral Doppler imaging through the bilateral lower extremity veins compression techniques and spectral analysisFINDINGSThe right common femoral vein, superficial femoral vein throughout its length and popliteal vein are patent and compressible with normal respiratory phasicity. Right posterior tibial vein is patentThe left common femoral vein is patent and compressible with normal respiratory phasicityThe proximal superficial femoral vein is patent proximally.The mid superficial femoral vein is incompletely compressible with partially occlusive thrombus noted.The distal superficial femoral vein is incompletely compressible, with near complete thrombosis. The left popliteal vein is noncompressible with hypoechoic thrombus and no flow, compatible with occlusive thrombosis.The posterior tibial vein is patent on the left.IMPRESSION1. Occlusive thrombus in left popliteal vein extending into the distal superficial femoral vein, with nonocclusive thrombus in the mid left superficial femoral vein.2. The right lower extremity veins are patent.Electronically signed by: MELISSA ZAMARRIPA (Jul 24, 2022 17:11:24)
[2022-07-24] MEDS ORDERED: HEPARIN SODIUM IN D5W 25,000 UNITS/500 ML BAG IV PRN (17:27)
[2022-07-24] MEDS ORDERED: HEPARIN SODIUM INJ 5000 UNITS IVP ONE (17:44)
--- NOTE | 2022-07-24 18:03 | CT ---
HISTORYCRITICAL LEFT LEG ISCHEMIA. Hypertension, diabetes mellitus, and asthma. Stent in the left leg.STUDYCTA AORTA WITH RUNOFFCOMPARISONNoneTECHNIQUEMultiple CT axial images of the abdomen, pelvis, and lower extremity runoff were obtained before and after using IV contrast. 3D reconstructions utilizing axial MIPS imaging was performed and reviewed. Dose reduction techniques including Automated Exposure Control (AEC) and adjustment of mA and kV were utilized.Stenoses are measured using NASCET criteria.FINDINGSWithout contrast:Atherosclerotic calcification is present in the coronary arteries, aorta, and major branches. Surgical clips are present in the gallbladder fossa from a cholecystectomy. Vascular stent is seen in the left iliac venous system. Knee prosthesis on the left.With contrast: Aorta has a normal caliber with no aneurysm, dissection, or stenosis. All 3 mesenteric vessels are patent without significant stenosis. There are 2 arteries to the right kidney and 1 to the left without significant occlusion.Left and right common iliac and external iliac arteries are widely patent. Both internal iliac arteries are patent.Left leg: There is a long occlusion of the left superficial femoral artery. The deep femoral artery is patent and collaterals reconstitute the popliteal artery near the adductor canal. Popliteal artery is patent and gives rise to all 3 branches in the proximal calf. But the posterior tibial artery becomes very tiny in the proximal calf and is not seen distally. Peroneal artery and anterior tibial artery extend into the foot.Right leg: Mild disease seen in the superficial femoral artery near the adductor canal. Popliteal artery is widely patent and gives rise to all 3 branches in the proximal calf. These extend to the foot.Body: Small right lung nodule measures about 5 mm, image 22 series 8. This is unchanged from a chest CT 03/05/2022. This only represents a 5 month time interval for stability.No biliary obstruction. No hydronephrosis. No bowel obstruction.IMPRESSION1. Long segment left SFA occlusion, probably chronic2. Two vessel runoff to the left foot3. No significant inflow or outflow occlusion to the right lower extremityElectronically signed by: Urbano Charlton (Jul 24, 2022 18:01:16)
[2022-07-24 18:11] LABS: INR 1.07 (0.8-1.3)
[2022-07-24] MEDS ORDERED: PULMICORT NEB TX 0.5 MG NEB ONE (19:53)
[2022-07-24] MEDS: NovoLIN R (or HumuLIN R) SC PRN (20:17)
[2022-07-24] MEDS: PULMICORT NEB TX 0.5 MG NEB SCH (20:29)
--- NOTE | 2022-07-24 23:11 | NOTE.SOAP ---
Soap Note Note for Day of Date of Exam: 07/24/22 Subjective Data Subjective Data: Admitted today with pain and swelling of left foot and calf x 4 weeks . In the last few months has had left SFA atherectomy and drug coated balloon angioplasty followed by left iliac vein stenting for iliac vein compression. Hx of Factor 2 clotting deficiency . Had EKG chnages after last procedure and was transferred to [place] where she underwent a negative cardiaac catherization. [employer] placed her on Plavix alone without anticoagulant . US shows occlusive DVT of left popliteal vein and non-occlusive thrombus of the left superficial femoral vein. In addition jacob left SFA is also now occluded . Objective Data Pulse Rate: 75 Respiratory Rate: 18 Blood Pressure: 129/60 O2 Sat by Pulse Oximetry: 96 Objective Data: cyanotic cool left foot with 3 + swelling of the left leg. left leg not acutely ischemic. Assessment Assessment: DVT left popliteal vein, occluded left SFA with 2 vessel runoff. Plan Plan: Plan to start heparin drip. will place left leg venous EKOS catheter in AM and possible Angiojet, possible venous angioplasty. Will need to also address SFA occlusion this hospitalization.
[2022-07-25] MEDS: LR 1,000 ML IV 1,000 ML IV SCH ×3 (02:14→20:50)
[2022-07-25] MEDS: LYRICA CAP 150 mg PO SCH ×3 (05:16→21:21)
[2022-07-25] MEDS: DILAUDID INJ IVP PRN ×6 (05:16→21:43)
[2022-07-25] MEDS ORDERED: MARCAINE 0.5% ONE (06:58)
[2022-07-25] MEDS ORDERED: NS 500 ML IV 1,000 ML IV ONE (06:59)
[2022-07-25] MEDS ORDERED: ACTIVASE CATHFLO ONE (06:59)
[2022-07-25] MEDS ORDERED: ANCEF VIAL 1 GRAM ONE (07:19)
[2022-07-25] MEDS: HEPARIN SODIUM IN D5W 100,000 UNITS/2,000 ML BAG ONE ×2 (07:19→07:50)
[2022-07-25] MEDS ORDERED: NS 1,000 ML IV 1,000 ML ONE (07:20)
[2022-07-25] MEDS ORDERED: NS 100 ML IV 100 ML ONE (07:20)
[2022-07-25] MEDS ORDERED: VERSED ONE ×2 (07:34→08:22)
[2022-07-25] MEDS ORDERED: DIPRIVAN VIAL 20 ML ONE ×2 (07:34→08:34)
[2022-07-25] MEDS ORDERED: FENTANYL VIAL INJ 100 mcg ONE (07:34)
[2022-07-25] MEDS ORDERED: KETAMINE HCL ONE (07:34)
[2022-07-25] MEDS ORDERED: HEPARIN SODIUM INJ 5000 UNITS ONE (08:23)
[2022-07-25] MEDS: NS 500 ML IV 500 ML IV SCH ×2 (08:40→23:52)
[2022-07-25] MEDS: ACTIVASE CATHFLO 12 MG in NS 250 ML IV 228 ML INTRACATH SCH ×2 (08:40→20:29)
[2022-07-25] MEDS: PULMICORT NEB TX 0.5 MG NEB SCH ×2 (08:44→20:15)
[2022-07-25] MEDS: PROVENTIL NEB TX 0.083% 2.5MG/ 3ML NEB SCH ×4 (08:44→20:15)
[2022-07-25] MEDS ORDERED: ACTIVASE CATHFLO 12 MG in NS 250 ML IV 228 ML INTRACATH ONE ×4 (08:59)
[2022-07-25] MEDS ORDERED: HEPARIN SODIUM IN D5W 25,000 UNITS/500 ML BAG INTRACATH PRN (08:59)
[2022-07-25] MEDS ORDERED: NS 500 ML IV 500 ML IV SCH (09:00)
--- NOTE | 2022-07-25 09:06 | OR.IMMED ---
IMMEDIATE POST-OP NOTE Immediate Post-Op Note Pre-Op Diagnosis: DVT left popliteal vein and left SFV Post-Op Diagnosis: same Procedure: U/S guided placement of EKOS catheter in left popliteal and left superficial femoral veins , Thrombolysis left leg DVT Description of Procedure: see operative summary Surgeon/Hat Model: Kizzy Findings: as above Estimated Blood Loss: minimal Complications: none Progress Notes: To ICU for overnight TPA/ EKOS left popliteal and SFV DVT Final Diagnosis: as above
[2022-07-25] MEDS ORDERED: DILAUDID INJ ONE (11:36)
[2022-07-25] MEDS ORDERED: ZESTRIL TAB 20 MG ONE (11:56)
[2022-07-25 12:07] LABS: BASOPHILS # (AUTO) 0.2 X10^3/uL (0.0-0.1); BASOPHILS % (AUTO) 1.2 % (0.2-1.0); EOSINOPHILS # (AUTO) 0.3 x10^3/uL (0.0-0.2); EOSINOPHILS % (AUTO) 2.4 % (0.9-2.9); HEMATOCRIT 42.4 % (36.0-47.0); HEMOGLOBIN 13.9 g/dL (12.0-16.0); LYMPHOCYTES # (AUTO) 2.5 X10^3/uL (1.3-2.9); LYMPHOCYTES % (AUTO) 17.7 % (21.0-51.0); MEAN CORPUSCULAR HEMOGLOBIN 29.1 pg (27.0-34.0); MEAN CORPUSCULAR HGB CONC 32.8 g/dL (33.0-35.0); MEAN CORPUSCULAR VOLUME 88.7 fL (80.0-100.0); MEAN PLATELET VOLUME 11.1 fL (7.4-11.0); MONOCYTES # (AUTO) 0.7 x10^3/uL (0.3-0.8); NEUTROPHILS # (AUTO) 10.3 x10^3/uL (2.2-4.8); NEUTROPHILS % (AUTO) 73.7 % (42.0-75.0); RED BLOOD COUNT 4.78 X10^6/uL (3.5-5.4); RED CELL DISTRIBUTION WIDTH 15.2 % (11.6-16.5); WHITE BLOOD COUNT 13.9 X10^3/uL (3.6-10.0)
[2022-07-25] MEDS: LIPITOR TAB 20 MG PO SCH (12:19)
[2022-07-25] MEDS: LASIX PO SCH (12:19)
[2022-07-25] MEDS: ASPIRIN EC 81 MG PO SCH (12:19)
[2022-07-25] MEDS: PROTONIX TAB 40 MG PO SCH (12:20)
[2022-07-25] MEDS: PLAVIX PO SCH (12:20)
[2022-07-25] MEDS: MOBIC TAB 15 MG PO SCH (12:20)
[2022-07-25] MEDS: ZOLOFT PO SCH (12:21)
[2022-07-25] MEDS: TENORMIN PO SCH (12:21)
[2022-07-25] MEDS: TRICOR TAB 145 MG PO SCH (12:21)
[2022-07-25] MEDS: ZESTRIL TAB 20 MG PO SCH (12:21)
[2022-07-25] MEDS ORDERED: DILAUDID INJ IVP ONE (12:25)
[2022-07-25 15:20] LABS: BASOPHILS # (AUTO) 0.1 X10^3/uL (0.0-0.1); BASOPHILS % (AUTO) 0.4 % (0.2-1.0); EOSINOPHILS # (AUTO) 0.2 x10^3/uL (0.0-0.2); EOSINOPHILS % (AUTO) 1.5 % (0.9-2.9); HEMATOCRIT 39.1 % (36.0-47.0); HEMOGLOBIN 12.7 g/dL (12.0-16.0); LYMPHOCYTES # (AUTO) 2.2 X10^3/uL (1.3-2.9); LYMPHOCYTES % (AUTO) 17.5 % (21.0-51.0); MEAN CORPUSCULAR HEMOGLOBIN 28.9 pg (27.0-34.0); MEAN CORPUSCULAR HGB CONC 32.6 g/dL (33.0-35.0); MEAN CORPUSCULAR VOLUME 88.6 fL (80.0-100.0); MEAN PLATELET VOLUME 10.6 fL (7.4-11.0); MONOCYTES # (AUTO) 0.7 x10^3/uL (0.3-0.8); MONOCYTES % (AUTO) 5.9 % (0.0-13.0); NEUTROPHILS # (AUTO) 9.4 x10^3/uL (2.2-4.8); NEUTROPHILS % (AUTO) 74.7 % (42.0-75.0); RED BLOOD COUNT 4.41 X10^6/uL (3.5-5.4); RED CELL DISTRIBUTION WIDTH 14.8 % (11.6-16.5); WHITE BLOOD COUNT 12.6 X10^3/uL (3.6-10.0)
--- NOTE | 2022-07-25 15:52 | DR.OPNOTE ---
OP NOTE Pre-Op Diagnosis: Left leg DVT complete occlusion left popliteal vein, partial occlusion SFV Post-Op Diagnosis: same Procedure Date Date Of Procedure: 07/25/22 Procedure: PROCEDURE :Left leg venogram, place EKOS catheter covering thrombus in the left popliteal and left superficial femoral veins . Plan EKOS thrombolysis overnight. Return to OR tomorrow for venogram , possible Angiojet, possible balloon angioplasty of deep veins. NARRATIVE : The patient was taken to the operative suite and placed in the supine position and given intravenous sedation supervised by myself. The entire left leg prepped and draped in sterile fashion. Time out for the procedure obtained . Ultrasound used to identify the posterior tibial vein at the medial ankle and ultrasound used to guide puncture of the left posterior tibial vein with a micro needle and a 0. 012 inch guide wire placed without difficulty. Incision made over the guise wire at the skin edge with a # 11 knife and a micro sheath placed over the guide wire into the left posterior tibial vein . Venogram carried out confirming we were in the posterior tibial vein and demonstrating complete occlusion of the popliteal vein and partial occlusion of the mid portion of the left superficial femoral vein. 0.035 inch guide wire was taken all the way to the left iliac vein stent and contrast study of the iliac vein showed no occlusion or thrombus. Vena cavagram showed no thrombus as well. At this point the micro sheath was exchanged for a 5 Fr vascular sheath and the EKOS thrombolysis catheter was traded for the guide wire covering the thrombus in the popliteal vein and the superficial femoral vein. It was connected to TPA at 1 mg per hour after giving a bolus of 2 mg of intravenous plasminogen activator. Coolant started at 35 cc/hour and the inner core hooked to the vibration apparatus . Heparin 500 units per hour is running through the side port of the sheath . Dressing applied . Patient taken to the ICU for overnight thrombolysis . Routine labs per EKOS protocol. Type of Anesthesia: Local (0.5 % Marcaine ) Anesthesia Comment: plus MAC Findings: Complete occlusion left popliteal vein with thrombus, partial occlusion and thrombus of left superficial femoral vein Type of Fluids Used:: Normal Saline and Lactated Ringers Total Amount of Fluid Infused:: 200 cc EBL: minimal Complications:: none Needle/Sponge Count:: correct Disposition/Condition: Pt. tolerated procedure without difficulty. Extubated in the OR and taken to PACU in stable condition.
[2022-07-25] MEDS: NovoLIN R (or HumuLIN R) SC PRN ×2 (16:33→20:46)
[2022-07-25] MEDS ORDERED: NS 250 ML IV 0 ML IV ONE (20:05)
[2022-07-25 22:49] LABS: BASOPHILS # (AUTO) 0.1 X10^3/uL (0.0-0.1); BASOPHILS % (AUTO) 0.7 % (0.2-1.0); EOSINOPHILS # (AUTO) 0.3 x10^3/uL (0.0-0.2); EOSINOPHILS % (AUTO) 3.2 % (0.9-2.9); HEMATOCRIT 37.1 % (36.0-47.0); HEMOGLOBIN 12.1 g/dL (12.0-16.0); LYMPHOCYTES # (AUTO) 2.6 X10^3/uL (1.3-2.9); LYMPHOCYTES % (AUTO) 28.5 % (21.0-51.0); MEAN CORPUSCULAR HGB CONC 32.6 g/dL (33.0-35.0); MONOCYTES # (AUTO) 0.7 x10^3/uL (0.3-0.8); MONOCYTES % (AUTO) 8.3 % (0.0-13.0); NEUTROPHILS # (AUTO) 5.3 x10^3/uL (2.2-4.8); NEUTROPHILS % (AUTO) 59.3 % (42.0-75.0); RED BLOOD COUNT 4.17 X10^6/uL (3.5-5.4)
[2022-07-26] MEDS: DILAUDID INJ IVP PRN ×6 (01:41→21:19)
[2022-07-26 03:26] LABS: HEMOGLOBIN 12.3 g/dL (12.0-16.0)
[2022-07-26 03:29] LABS: BASOPHILS # (AUTO) 0.1 X10^3/uL (0.0-0.1); BASOPHILS % (AUTO) 0.9 % (0.2-1.0); EOSINOPHILS # (AUTO) 0.3 x10^3/uL (0.0-0.2); EOSINOPHILS % (AUTO) 2.9 % (0.9-2.9); HEMATOCRIT 37.4 % (36.0-47.0); LYMPHOCYTES # (AUTO) 2.7 X10^3/uL (1.3-2.9); LYMPHOCYTES % (AUTO) 27.9 % (21.0-51.0); MEAN CORPUSCULAR HEMOGLOBIN 29.2 pg (27.0-34.0); MEAN CORPUSCULAR VOLUME 88.6 fL (80.0-100.0); MEAN PLATELET VOLUME 10.2 fL (7.4-11.0); MONOCYTES # (AUTO) 0.8 x10^3/uL (0.3-0.8); MONOCYTES % (AUTO) 8.8 % (0.0-13.0); NEUTROPHILS # (AUTO) 5.8 x10^3/uL (2.2-4.8); NEUTROPHILS % (AUTO) 59.5 % (42.0-75.0); RED BLOOD COUNT 4.22 X10^6/uL (3.5-5.4); RED CELL DISTRIBUTION WIDTH 15.1 % (11.6-16.5); WHITE BLOOD COUNT 9.7 X10^3/uL (3.6-10.0)
[2022-07-26] MEDS: LR 1,000 ML IV 1,000 ML IV SCH ×2 (04:24→18:55)
[2022-07-26] MEDS: LYRICA CAP 150 mg PO SCH ×3 (05:12→21:19)
[2022-07-26] MEDS: PROVENTIL NEB TX 0.083% 2.5MG/ 3ML NEB SCH ×4 (08:40→20:53)
[2022-07-26] MEDS: PULMICORT NEB TX 0.5 MG NEB SCH ×2 (08:40→20:53)
[2022-07-26 13:39] LABS: BASOPHILS # (AUTO) 0.1 X10^3/uL (0.0-0.1); BASOPHILS % (AUTO) 0.6 % (0.2-1.0); EOSINOPHILS # (AUTO) 0.3 x10^3/uL (0.0-0.2); EOSINOPHILS % (AUTO) 3.1 % (0.9-2.9); HEMOGLOBIN 11.9 g/dL (12.0-16.0); LYMPHOCYTES # (AUTO) 3.2 X10^3/uL (1.3-2.9); LYMPHOCYTES % (AUTO) 30.1 % (21.0-51.0); MEAN CORPUSCULAR HEMOGLOBIN 29.3 pg (27.0-34.0); MEAN CORPUSCULAR HGB CONC 33.1 g/dL (33.0-35.0); MEAN CORPUSCULAR VOLUME 88.6 fL (80.0-100.0); MEAN PLATELET VOLUME 10.7 fL (7.4-11.0); MONOCYTES # (AUTO) 0.8 x10^3/uL (0.3-0.8); MONOCYTES % (AUTO) 7.1 % (0.0-13.0); NEUTROPHILS # (AUTO) 6.3 x10^3/uL (2.2-4.8); NEUTROPHILS % (AUTO) 59.1 % (42.0-75.0); RED BLOOD COUNT 4.06 X10^6/uL (3.5-5.4); WHITE BLOOD COUNT 10.6 X10^3/uL (3.6-10.0)
[2022-07-26] MEDS: ASPIRIN EC 81 MG PO SCH (13:59)
[2022-07-26] MEDS: LASIX PO SCH (13:59)
[2022-07-26] MEDS: LIPITOR TAB 20 MG PO SCH (14:00)
[2022-07-26] MEDS: PLAVIX PO SCH (14:00)
[2022-07-26] MEDS: MOBIC TAB 15 MG PO SCH (14:00)
[2022-07-26] MEDS: TENORMIN PO SCH (14:00)
[2022-07-26] MEDS: NS 500 ML IV 500 ML IV SCH (14:01)
[2022-07-26] MEDS: TRICOR TAB 145 MG PO SCH (14:01)
[2022-07-26] MEDS: ZESTRIL TAB 20 MG PO SCH (14:01)
[2022-07-26] MEDS: ZOLOFT PO SCH (14:01)
[2022-07-26] MEDS: PROTONIX TAB 40 MG PO SCH (14:02)
[2022-07-26] MEDS ORDERED: NS 1,000 ML IV 1,000 ML ONE (14:18)
[2022-07-26] MEDS ORDERED: ANCEF VIAL 1 GRAM ONE (14:18)
[2022-07-26] MEDS ORDERED: NS 100 ML IV 100 ML ONE (14:18)
[2022-07-26] MEDS ORDERED: MARCAINE 0.5% ONE (14:39)
[2022-07-26] MEDS ORDERED: HEPARIN SODIUM IN D5W 75,000 UNITS/1,500 ML BAG ONE (14:39)
[2022-07-26] MEDS ORDERED: KETAMINE HCL ONE (14:50)
[2022-07-26] MEDS ORDERED: XYLOCAINE 2 % (PLAIN) ONE (14:50)
[2022-07-26] MEDS ORDERED: PRECEDEX INJ VIAL IVP ONE (14:50)
[2022-07-26] MEDS ORDERED: DIPRIVAN VIAL 40 ML ONE (15:18)
[2022-07-26] MEDS ORDERED: HEPARIN SODIUM IN D5W 25,000 UNITS/500 ML BAG ONE (15:23)
[2022-07-26] MEDS ORDERED: DIPRIVAN VIAL 20 ML ONE (15:50)
[2022-07-26] MEDS ORDERED: HEPARIN SODIUM INJ 5000 UNITS ONE (16:09)
[2022-07-26 17:12] LABS: BASOPHILS # (AUTO) 0.1 X10^3/uL (0.0-0.1); BASOPHILS % (AUTO) 0.7 % (0.2-1.0); EOSINOPHILS # (AUTO) 0.4 x10^3/uL (0.0-0.2); EOSINOPHILS % (AUTO) 3.6 % (0.9-2.9); HEMATOCRIT 33.3 % (36.0-47.0); HEMOGLOBIN 11.1 g/dL (12.0-16.0); LYMPHOCYTES # (AUTO) 2.5 X10^3/uL (1.3-2.9); LYMPHOCYTES % (AUTO) 24.7 % (21.0-51.0); MEAN CORPUSCULAR HEMOGLOBIN 29.8 pg (27.0-34.0); MEAN CORPUSCULAR HGB CONC 33.4 g/dL (33.0-35.0); MEAN CORPUSCULAR VOLUME 89.3 fL (80.0-100.0); MEAN PLATELET VOLUME 10.4 fL (7.4-11.0); MONOCYTES # (AUTO) 0.6 x10^3/uL (0.3-0.8); MONOCYTES % (AUTO) 6.3 % (0.0-13.0); NEUTROPHILS # (AUTO) 6.5 x10^3/uL (2.2-4.8); NEUTROPHILS % (AUTO) 64.7 % (42.0-75.0); RED BLOOD COUNT 3.73 X10^6/uL (3.5-5.4); RED CELL DISTRIBUTION WIDTH 14.9 % (11.6-16.5)
[2022-07-26] MEDS: NovoLIN R (or HumuLIN R) SC PRN (21:19)
[2022-07-26 22:07] LABS: BASOPHILS # (AUTO) 0.1 X10^3/uL (0.0-0.1); BASOPHILS % (AUTO) 0.7 % (0.2-1.0); EOSINOPHILS # (AUTO) 0.2 x10^3/uL (0.0-0.2); EOSINOPHILS % (AUTO) 2.1 % (0.9-2.9); HEMATOCRIT 34.6 % (36.0-47.0); HEMOGLOBIN 11.4 g/dL (12.0-16.0); LYMPHOCYTES # (AUTO) 1.9 X10^3/uL (1.3-2.9); LYMPHOCYTES % (AUTO) 19.4 % (21.0-51.0); MEAN CORPUSCULAR HEMOGLOBIN 29.3 pg (27.0-34.0); MEAN CORPUSCULAR VOLUME 88.6 fL (80.0-100.0); MEAN PLATELET VOLUME 10.5 fL (7.4-11.0); MONOCYTES # (AUTO) 0.7 x10^3/uL (0.3-0.8); MONOCYTES % (AUTO) 6.7 % (0.0-13.0); NEUTROPHILS % (AUTO) 71.1 % (42.0-75.0); RED BLOOD COUNT 3.91 X10^6/uL (3.5-5.4); RED CELL DISTRIBUTION WIDTH 14.9 % (11.6-16.5); WHITE BLOOD COUNT 9.9 X10^3/uL (3.6-10.0)
[2022-07-26] MEDS ORDERED: HEPARIN SODIUM INJ 5000 UNITS IVP ONE (22:39)
[2022-07-26] MEDS: HEPARIN SODIUM IN D5W 25,000 UNITS/500 ML BAG IV PRN (23:00)
[2022-07-27] MEDS: LR 1,000 ML IV 1,000 ML IV SCH ×4 (03:14→20:15)
[2022-07-27] MEDS: LYRICA CAP 150 mg PO SCH ×3 (05:07→21:31)
[2022-07-27] MEDS: NovoLIN R (or HumuLIN R) SC PRN ×4 (05:38→20:42)
[2022-07-27 05:46] LABS: BASOPHILS # (AUTO) 0.1 X10^3/uL (0.0-0.1); BASOPHILS % (AUTO) 1.2 % (0.2-1.0); EOSINOPHILS # (AUTO) 0.4 x10^3/uL (0.0-0.2); EOSINOPHILS % (AUTO) 4.1 % (0.9-2.9); LYMPHOCYTES # (AUTO) 1.7 X10^3/uL (1.3-2.9); LYMPHOCYTES % (AUTO) 16.2 % (21.0-51.0); MEAN CORPUSCULAR HGB CONC 33.2 g/dL (33.0-35.0); MEAN CORPUSCULAR VOLUME 87.6 fL (80.0-100.0); MEAN PLATELET VOLUME 12.2 fL (7.4-11.0); MONOCYTES # (AUTO) 0.7 x10^3/uL (0.3-0.8); MONOCYTES % (AUTO) 6.7 % (0.0-13.0); NEUTROPHILS # (AUTO) 7.3 x10^3/uL (2.2-4.8); NEUTROPHILS % (AUTO) 71.8 % (42.0-75.0); RED BLOOD COUNT 3.77 X10^6/uL (3.5-5.4); RED CELL DISTRIBUTION WIDTH 14.8 % (11.6-16.5); WHITE BLOOD COUNT 10.2 X10^3/uL (3.6-10.0)
[2022-07-27] MEDS: PULMICORT NEB TX 0.5 MG NEB SCH ×2 (08:25→21:00)
[2022-07-27] MEDS: PROVENTIL NEB TX 0.083% 2.5MG/ 3ML NEB SCH ×4 (08:25→21:00)
[2022-07-27] MEDS ORDERED: ZESTRIL TAB 20 MG ONE (09:09)
[2022-07-27] MEDS: ASPIRIN EC 81 MG PO SCH (09:15)
[2022-07-27] MEDS: LASIX PO SCH (09:16)
[2022-07-27] MEDS: LIPITOR TAB 20 MG PO SCH (09:16)
[2022-07-27] MEDS: PLAVIX PO SCH (09:17)
[2022-07-27] MEDS: MOBIC TAB 15 MG PO SCH (09:17)
[2022-07-27] MEDS: TRICOR TAB 145 MG PO SCH (09:18)
[2022-07-27] MEDS: TENORMIN PO SCH (09:18)
[2022-07-27] MEDS: ZESTRIL TAB 20 MG PO SCH (09:18)
[2022-07-27] MEDS: PROTONIX TAB 40 MG PO SCH (09:18)
[2022-07-27] MEDS: ZOLOFT PO SCH (09:19)
[2022-07-27 09:45] LABS: BASOPHILS # (AUTO) 0.1 X10^3/uL (0.0-0.1); BASOPHILS % (AUTO) 0.7 % (0.2-1.0); EOSINOPHILS # (AUTO) 0.4 x10^3/uL (0.0-0.2); EOSINOPHILS % (AUTO) 3.4 % (0.9-2.9); HEMATOCRIT 33.3 % (36.0-47.0); LYMPHOCYTES # (AUTO) 1.8 X10^3/uL (1.3-2.9); LYMPHOCYTES % (AUTO) 16.7 % (21.0-51.0); MEAN CORPUSCULAR HEMOGLOBIN 29.2 pg (27.0-34.0); MEAN CORPUSCULAR HGB CONC 33.1 g/dL (33.0-35.0); MEAN CORPUSCULAR VOLUME 88.2 fL (80.0-100.0); MONOCYTES # (AUTO) 0.7 x10^3/uL (0.3-0.8); MONOCYTES % (AUTO) 6.6 % (0.0-13.0); NEUTROPHILS # (AUTO) 7.9 x10^3/uL (2.2-4.8); NEUTROPHILS % (AUTO) 72.6 % (42.0-75.0); RED BLOOD COUNT 3.77 X10^6/uL (3.5-5.4); WHITE BLOOD COUNT 10.8 X10^3/uL (3.6-10.0)
[2022-07-27] MEDS: DILAUDID INJ IVP PRN ×4 (12:12→21:45)
[2022-07-27] MEDS ORDERED: HEPARIN SODIUM INJ 5000 UNITS IVP ONE (13:45)
[2022-07-27 15:54] LABS: BASOPHILS # (AUTO) 0.1 X10^3/uL (0.0-0.1); BASOPHILS % (AUTO) 0.9 % (0.2-1.0); EOSINOPHILS # (AUTO) 0.5 x10^3/uL (0.0-0.2); EOSINOPHILS % (AUTO) 4.7 % (0.9-2.9); HEMATOCRIT 30.8 % (36.0-47.0); HEMOGLOBIN 10.3 g/dL (12.0-16.0); LYMPHOCYTES # (AUTO) 2.9 X10^3/uL (1.3-2.9); LYMPHOCYTES % (AUTO) 29.2 % (21.0-51.0); MEAN CORPUSCULAR HEMOGLOBIN 29.1 pg (27.0-34.0); MEAN CORPUSCULAR HGB CONC 33.4 g/dL (33.0-35.0); MEAN CORPUSCULAR VOLUME 87.3 fL (80.0-100.0); MONOCYTES # (AUTO) 0.6 x10^3/uL (0.3-0.8); MONOCYTES % (AUTO) 6.4 % (0.0-13.0); NEUTROPHILS # (AUTO) 5.9 x10^3/uL (2.2-4.8); NEUTROPHILS % (AUTO) 58.8 % (42.0-75.0); RED BLOOD COUNT 3.53 X10^6/uL (3.5-5.4); RED CELL DISTRIBUTION WIDTH 14.6 % (11.6-16.5)
--- NOTE | 2022-07-27 15:56 | OR.IMMED ---
IMMEDIATE POST-OP NOTE Immediate Post-Op Note Pre-Op Diagnosis: DVT left popliteal and superficial femoral veins. Procedure done yesterday and internet down and electronic immediate post op note could not be produced . Handwritten immediate post op note was completed. Post-Op Diagnosis: Same , patient had placement of popliteal and SFV EKOS thrombolytic catheter via posterior tibial vein approach on 07/25/2022. Has under gone TPA infusion with EKOS overnight and brought back to the OR for F/U v enography and possible deep venous intervention. Procedure: venogram of left popliteal vein, left superficial femoral vein, left iliac vein, IVUS of all of these veins , balloon angioplasty all of these veins and thrombectomy of all these veins using the "ClotHunter". Description of Procedure: see operative note . Surgeon/Fitness Leader: Kizzy Findings: recanalization of the left popliteal vein, IVUS still showed some clot in the popliteal and Superficial femoral veins Specimens Removed: clot from left leg deep venous system. Estimated Blood Loss: < 25 cc Complications: none Progress Notes: Return to the ICU, Heparin drip, left foot warm but all toes with cyanotic color look. Will continue heparin over the weekend . Will need intervention of the occluded left superficial femoral artery. This had atherectomy and drug coated balloon angioplasty several months ago. Final Diagnosis: DVT left leg.
[2022-07-27 19:55] LABS: BASOPHILS % (AUTO) 0.5 % (0.2-1.0); EOSINOPHILS # (AUTO) 0.5 x10^3/uL (0.0-0.2); EOSINOPHILS % (AUTO) 5.5 % (0.9-2.9); HEMATOCRIT 31.2 % (36.0-47.0); HEMOGLOBIN 10.4 g/dL (12.0-16.0); LYMPHOCYTES # (AUTO) 2.6 X10^3/uL (1.3-2.9); LYMPHOCYTES % (AUTO) 30.2 % (21.0-51.0); MEAN CORPUSCULAR HEMOGLOBIN 29.4 pg (27.0-34.0); MEAN CORPUSCULAR HGB CONC 33.2 g/dL (33.0-35.0); MEAN CORPUSCULAR VOLUME 88.5 fL (80.0-100.0); MEAN PLATELET VOLUME 11.3 fL (7.4-11.0); MONOCYTES # (AUTO) 0.6 x10^3/uL (0.3-0.8); MONOCYTES % (AUTO) 6.4 % (0.0-13.0); NEUTROPHILS # (AUTO) 4.9 x10^3/uL (2.2-4.8); NEUTROPHILS % (AUTO) 57.4 % (42.0-75.0); RED BLOOD COUNT 3.53 X10^6/uL (3.5-5.4); WHITE BLOOD COUNT 8.6 X10^3/uL (3.6-10.0)
[2022-07-27] MEDS: HEPARIN SODIUM IN D5W 25,000 UNITS/500 ML BAG IV PRN (20:13)
--- NOTE | 2022-07-27 23:15 | NOTE.SOAP ---
Soap Note Note for Day of Date of Exam: 07/27/22 Subjective Data Subjective Data: POD # 1 after thrombolysis, thrombectomy and angioplasty of the left popliteal and superficial femoral veins. On heparin drip.Nurses not less pain of left foot. Objective Data Temperature: 97.9 F Pulse Rate: 66 Respiratory Rate: 12 Blood Pressure: 106/55 O2 Sat by Pulse Oximetry: 95 Objective Data: no bleeding from needle stick left medial ankle . All toes left foot are dusky. Left foot still warm, doppler signal left PT artery. HgB=10.4 PTT=43.9 Assessment Assessment: 1) DVT left leg treated with percutaneous thombolysis, thrombectomy and angioplasty. 2) Plan arteriogram and arterial intervention of left leg on Saturday. Plan Plan: Continue heparin drip, intervention left leg on Saturday.
[2022-07-28 03:19] LABS: BASOPHILS % (AUTO) 0.7 % (0.2-1.0); EOSINOPHILS # (AUTO) 0.4 x10^3/uL (0.0-0.2); EOSINOPHILS % (AUTO) 5.9 % (0.9-2.9); HEMATOCRIT 31.1 % (36.0-47.0); HEMOGLOBIN 10.4 g/dL (12.0-16.0); LYMPHOCYTES # (AUTO) 2.1 X10^3/uL (1.3-2.9); MEAN CORPUSCULAR HEMOGLOBIN 29.3 pg (27.0-34.0); MEAN CORPUSCULAR HGB CONC 33.5 g/dL (33.0-35.0); MEAN CORPUSCULAR VOLUME 87.5 fL (80.0-100.0); MEAN PLATELET VOLUME 11.1 fL (7.4-11.0); MONOCYTES # (AUTO) 0.6 x10^3/uL (0.3-0.8); MONOCYTES % (AUTO) 8.8 % (0.0-13.0); NEUTROPHILS % (AUTO) 55.6 % (42.0-75.0); RED BLOOD COUNT 3.55 X10^6/uL (3.5-5.4); WHITE BLOOD COUNT 7.2 X10^3/uL (3.6-10.0)
[2022-07-28 03:28] LABS: ALANINE AMINOTRANSFERASE 10 Units/L (12-78); ALBUMIN 2.6 g/dL (3.4-5.0); ALKALINE PHOSPHATASE 86 Units/L (46-116); ASPARTATE AMINO TRANSFERASE 12 Units/L (15-37); BLOOD UREA NITROGEN 9 mg/dL (7-18); CALCIUM 7.7 mg/dL (8.5-10.1); CARBON DIOXIDE 30.9 mmol/L (21-32); CHLORIDE 99 mmol/L (98-107); COR CA(FOR HYPOALB) 8.8 mg/dL (8.5-10.1); COR NA(FOR HYPERGLY) 139 mmol/L (136-145); SODIUM 136 mmol/L (136-145); eGFR NON BLACK RACES > 60 (>60)
[2022-07-28] MEDS: LYRICA CAP 150 mg PO SCH ×3 (05:50→21:02)
[2022-07-28] MEDS: NovoLIN R (or HumuLIN R) SC PRN ×4 (05:50→21:02)
[2022-07-28 08:06] LABS: BASOPHILS % (AUTO) 0.7 % (0.2-1.0); EOSINOPHILS # (AUTO) 0.4 x10^3/uL (0.0-0.2); EOSINOPHILS % (AUTO) 5.6 % (0.9-2.9); HEMATOCRIT 31.4 % (36.0-47.0); HEMOGLOBIN 10.4 g/dL (12.0-16.0); LYMPHOCYTES # (AUTO) 2.2 X10^3/uL (1.3-2.9); LYMPHOCYTES % (AUTO) 29.8 % (21.0-51.0); MEAN CORPUSCULAR HEMOGLOBIN 29.3 pg (27.0-34.0); MEAN CORPUSCULAR HGB CONC 33.1 g/dL (33.0-35.0); MEAN CORPUSCULAR VOLUME 88.6 fL (80.0-100.0); MEAN PLATELET VOLUME 11.5 fL (7.4-11.0); MONOCYTES # (AUTO) 0.6 x10^3/uL (0.3-0.8); MONOCYTES % (AUTO) 8.6 % (0.0-13.0); NEUTROPHILS % (AUTO) 55.3 % (42.0-75.0); RED BLOOD COUNT 3.55 X10^6/uL (3.5-5.4); RED CELL DISTRIBUTION WIDTH 15.1 % (11.6-16.5); WHITE BLOOD COUNT 7.3 X10^3/uL (3.6-10.0)
[2022-07-28] MEDS ORDERED: ZESTRIL TAB 20 MG ONE (08:40)
[2022-07-28] MEDS: ASPIRIN EC 81 MG PO SCH (08:42)
[2022-07-28] MEDS: LASIX PO SCH (08:42)
[2022-07-28] MEDS: PROTONIX TAB 40 MG PO SCH (08:43)
[2022-07-28] MEDS: LIPITOR TAB 20 MG PO SCH (08:43)
[2022-07-28] MEDS: PLAVIX PO SCH (08:43)
[2022-07-28] MEDS: MOBIC TAB 15 MG PO SCH (08:43)
[2022-07-28] MEDS: ZESTRIL TAB 20 MG PO SCH (08:44)
[2022-07-28] MEDS: TENORMIN PO SCH (08:44)
[2022-07-28] MEDS: TRICOR TAB 145 MG PO SCH (08:44)
[2022-07-28] MEDS: ZOLOFT PO SCH (08:44)
[2022-07-28] MEDS: LR 1,000 ML IV 1,000 ML IV SCH ×3 (08:58→23:49)
[2022-07-28] MEDS: PULMICORT NEB TX 0.5 MG NEB SCH ×2 (09:05→20:45)
[2022-07-28] MEDS: PROVENTIL NEB TX 0.083% 2.5MG/ 3ML NEB SCH ×4 (09:05→20:45)
[2022-07-28] MEDS: DILAUDID INJ IVP PRN ×5 (14:16→23:48)
[2022-07-28 16:38] LABS: BASOPHILS # (AUTO) 0.1 X10^3/uL (0.0-0.1); BASOPHILS % (AUTO) 0.8 % (0.2-1.0); EOSINOPHILS # (AUTO) 0.3 x10^3/uL (0.0-0.2); EOSINOPHILS % (AUTO) 3.5 % (0.9-2.9); HEMATOCRIT 31.8 % (36.0-47.0); HEMOGLOBIN 10.5 g/dL (12.0-16.0); LYMPHOCYTES # (AUTO) 1.8 X10^3/uL (1.3-2.9); LYMPHOCYTES % (AUTO) 22.5 % (21.0-51.0); MEAN CORPUSCULAR HEMOGLOBIN 29.2 pg (27.0-34.0); MEAN CORPUSCULAR HGB CONC 33.1 g/dL (33.0-35.0); MONOCYTES # (AUTO) 0.5 x10^3/uL (0.3-0.8); MONOCYTES % (AUTO) 6.5 % (0.0-13.0); NEUTROPHILS # (AUTO) 5.3 x10^3/uL (2.2-4.8); NEUTROPHILS % (AUTO) 66.7 % (42.0-75.0); RED BLOOD COUNT 3.61 X10^6/uL (3.5-5.4); RED CELL DISTRIBUTION WIDTH 14.9 % (11.6-16.5)
[2022-07-28] MEDS: HEPARIN SODIUM IN D5W 25,000 UNITS/500 ML BAG IV PRN (18:30)
--- NOTE | 2022-07-28 19:08 | DR.PROGNOT ---
Hospital Progress Notes - Progress Note for Day of: Progress Note Date: 07/28/22 - Chief Complaint Chief Complaint: c/o severe rest pain Lt leg with ischemic changes middle does . on Heparin drip .. PTT 78. BS 222. - Past Medical Family Social History Past Med/Fam/Surg Hx: No changes since H&P Allergies: Allergies codeine Allergy (Verified 01/08/22 09:58) Sulfa (Sulfonamide Antibiotics) [SULFA] Allergy (Verified 01/08/22 09:58) - Review Of Systems ROS: No change since H&P - Vital Signs Vital Signs: Temperature 98.7 F Pulse Rate [Apical] 78 Pulse Rate [Left Brachial] 90 Pulse Rate 69 Respiratory Rate 22 Blood Pressure [Left Arm] 141/65 Blood Pressure 126/56 O2 Sat by Pulse Oximetry 95 - Physical Exam Oriented: Normal Eyes: Normal Ear: Normal Nose: Normal Throat: Normal Respiratory: Normal Cardiovascular: Normal Musculoskeletal: Left (Lt leg with severe ischemic chsnges , cyanosis middle toes .) Speech Pattern: Clear, Appropriate - Laboratory and Diagnostics Result Diagrams: 07/28/22 16:11 07/28/22 02:58 Labs: Laboratory WBC 8.0 X10^3/uL (3.6-10.0) 07/28/22 16:11 RBC 3.61 X10^6/uL (3.5-5.4) 07/28/22 16:11 Hgb 10.5 g/dL (12.0-16.0) L 07/28/22 16:11 Hct 31.8 % (36.0-47.0) L 07/28/22 16:11 MCV 88.0 fL (80.0-100.0) 07/28/22 16:11 MCH 29.2 pg (27.0-34.0) 07/28/22 16:11 MCHC 33.1 g/dL (33.0-35.0) 07/28/22 16:11 RDW 14.9 % (11.6-16.5) 07/28/22 16:11 Plt Count 90 X10^3/uL (150.0-450.0) L 07/28/22 16:11 MPV 12.0 fL (7.4-11.0) H 07/28/22 16:11 Neut % (Auto) 66.7 % (42.0-75.0) 07/28/22 16:11 Lymph % (Auto) 22.5 % (21.0-51.0) 07/28/22 16:11 [place] % (Auto) 6.5 % (0.0-13.0) 07/28/22 16:11 Eos % (Auto) 3.5 % (0.9-2.9) H 07/28/22 16:11 Baso % (Auto) 0.8 % (0.2-1.0) 07/28/22 16:11 Neut # (Auto) 5.3 x10^3/uL (2.2-4.8) H 07/28/22 16:11 Lymph # (Auto) 1.8 X10^3/uL (1.3-2.9) 07/28/22 16:11 [place] # (Auto) 0.5 x10^3/uL (0.3-0.8) 07/28/22 16:11 Eos # (Auto) 0.3 x10^3/uL (0.0-0.2) H 07/28/22 16:11 Baso # (Auto) 0.1 X10^3/uL (0.0-0.1) 07/28/22 16:11 Absolute Nucleated RBC 0.0 /100WBC 07/28/22 16:11 PT 13.6 SECONDS (11.8-14.3) 07/24/22 17:45 INR Target Range - 07/24/22 17:45 INR 1.07 (0.8-1.3) 07/24/22 17:45 APTT 76.1 SECONDS (22.9-36.5) H 07/28/22 16:11 PTT Comment - 07/28/22 16:11 Fibrinogen 343 mg/dL (239-489) 07/28/22 16:11 Sodium 136 mmol/L (136-145) 07/28/22 02:58 Corrected Sodium 139 mmol/L (136-145) 07/28/22 02:58 Potassium 4.1 mmol/L (3.5-5.1) 07/28/22 02:58 Chloride 99 mmol/L (98-107) 07/28/22 02:58 Carbon Dioxide 30.9 mmol/L (21-32) 07/28/22 02:58 BUN 9 mg/dL (7-18) 07/28/22 02:58 Creatinine 0.90 mg/dL (0.55-1.02) 07/28/22 02:58 Est GFR (MDRD) Af Amer > 60 (>60) 07/28/22 02:58 Est GFR (MDRD) Non-Af > 60 (>60) 07/28/22 02:58 Glucose 240 mg/dL (65-99) H 07/28/22 02:58 POC Glucose (mg/dL) 222 mg/dL (65-99) H 07/28/22 16:10 Calcium 7.7 mg/dL (8.5-10.1) L 07/28/22 02:58 Corrected Calcium 8.8 mg/dL (8.5-10.1) 07/28/22 02:58 Total Bilirubin 0.40 mg/dL (0.2-1.0) 07/28/22 02:58 AST 12 Units/L (15-37) L 07/28/22 02:58 ALT 10 Units/L (12-78) L 07/28/22 02:58 Alkaline Phosphatase 86 Units/L (46-116) 07/28/22 02:58 Total Protein 6.0 g/dL (6.4-8.2) L 07/28/22 02:58 Albumin 2.6 g/dL (3.4-5.0) L 07/28/22 02:58 Globulin 3.4 g/dL (2.5-4.5) 07/28/22 02:58 Albumin/Globulin Ratio 0.8 Ratio (1.1-2.1) L 07/28/22 02:58 Stool Description 100 g. brown/soft 07/28/22 02:40 Stl Occult Blood (IFOB) Positive (NEGATIVE) A 07/28/22 02:40 - Assessment and Plan 3: severe ischemi Lt leg . on Heparin now . plan as per Dr Durand .
[2022-07-28] MEDS: PERCOCET TAB 5/325 MG PO PRN (19:51)
--- NOTE | 2022-07-28 20:40 | DR.OPNOTE ---
OP NOTE Pre-Op Diagnosis: Left popliteal and left superficial femoral vein Deep Venous Thrombosis Post-Op Diagnosis: same Procedure Date Date Of Procedure: 07/26/22 Procedure: PROCEDURE: Left popliteal and left superficial femoral vein venogram, Intravascular ultrasound of the left popliteal and superficial femoral veins , Angiojet thrombolysis of these veins , angioplasty of left popliteal and left superficial femoral veins, and " Clot Jonnathan" thrombectomy of the left popliteal and superficial femoral veins. NARRATIVE : The patient had placement of left leg EKOS catheter via the left posterior tibial vein into the left popliteal and left superficial femoral veins yesterday and underwent EKOS thrombolysis overnight . She was taken to the operative suite and placed in the supine position and the entire left leg prepped and draped in sterile fashion. Patient was administered intravenous sedation under my supervision. EKOS catheter removed and 0.035 inch guidewire placed and venogram carried out through the sheath in the left posterior tibial vein. The popliteal vein was now open but there appeared to be residual clot in the left popliteal vein and the superficial femoral vein appeared to not have filling defects. IVUS catheter placed over the guide wire and intravascular ultrasound was carried out showing significant thrombus in the left popliteal vein, and clot against the wall of the left superficial femoral vein. I used the Angiojet device to perform jet aspiration of the left popliteal and superficial femoral veins . I then performed angioplasty of the left popliteal and left superficial femoral veins using a 7 mmx 150 mm [place] angioplasty balloon Repeat IVUS still showed clot . At this point I placed the " Clot Jonnathan" over the guide wire and used it to perform percutaneous thrombectomy of the left popliteal and left superficial femoral veins. Repeat venogram carried out showing good venous flow. All devices removed. Patient remains on heparin drip and the sheath in the left posterior tibial vein removed and tibial band applied to the left posterior tibial vein puncture site. Patient taken back to the ICU. Type of Anesthesia: Local (0.5% Marcaine ) Anesthesia Comment: plus MAC Findings: Patient had placement of left popliteal and left superficial femoral veins EKOS catheter yesterday and received EKOS thrombolysis overnight. Type of Fluids Used:: Lactated Ringers (300 cc) Urine output: 350 cc EBL: < 25 cc Complications:: none Needle/Sponge Count:: correct Disposition/Condition: Pt. tolerated procedure without difficulty.Taken to ICU in stable condition.
[2022-07-29] MEDS ORDERED: NS 500 ML IV 500 ML IV ONE (03:25)
[2022-07-29] MEDS ORDERED: NS 500 ML IV 250 ML IV ONE (04:38)
[2022-07-29] MEDS: LYRICA CAP 150 mg PO SCH ×3 (05:32→21:20)
[2022-07-29] MEDS: NovoLIN R (or HumuLIN R) SC PRN ×4 (05:33→20:49)
[2022-07-29 05:57] LABS: ALANINE AMINOTRANSFERASE 9 Units/L (12-78); ALBUMIN 2.4 g/dL (3.4-5.0); ALKALINE PHOSPHATASE 76 Units/L (46-116); ASPARTATE AMINO TRANSFERASE 9 Units/L (15-37); BLOOD UREA NITROGEN 10 mg/dL (7-18); CALCIUM 7.5 mg/dL (8.5-10.1); CARBON DIOXIDE 32.5 mmol/L (21-32); CHLORIDE 100 mmol/L (98-107); COR CA(FOR HYPOALB) 8.8 mg/dL (8.5-10.1); COR NA(FOR HYPERGLY) 140 mmol/L (136-145); CREATININE 0.93 mg/dL (0.55-1.02); SODIUM 138 mmol/L (136-145); TOTAL PROTEIN 5.6 g/dL (6.4-8.2); eGFR NON BLACK RACES > 60 (>60)
[2022-07-29] MEDS: PERCOCET TAB 5/325 MG PO PRN ×2 (06:04→10:20)
[2022-07-29 06:16] LABS: BASOPHILS % (AUTO) 0.6 % (0.2-1.0); EOSINOPHILS # (AUTO) 0.5 x10^3/uL (0.0-0.2); EOSINOPHILS % (AUTO) 6.1 % (0.9-2.9); HEMATOCRIT 29.4 % (36.0-47.0); HEMOGLOBIN 9.5 g/dL (12.0-16.0); LYMPHOCYTES # (AUTO) 2.6 X10^3/uL (1.3-2.9); LYMPHOCYTES % (AUTO) 34.5 % (21.0-51.0); MEAN CORPUSCULAR HEMOGLOBIN 28.9 pg (27.0-34.0); MEAN CORPUSCULAR HGB CONC 32.4 g/dL (33.0-35.0); MONOCYTES # (AUTO) 0.6 x10^3/uL (0.3-0.8); MONOCYTES % (AUTO) 8.1 % (0.0-13.0); NEUTROPHILS # (AUTO) 3.9 x10^3/uL (2.2-4.8); NEUTROPHILS % (AUTO) 50.7 % (42.0-75.0); RED CELL DISTRIBUTION WIDTH 15.3 % (11.6-16.5); WHITE BLOOD COUNT 7.6 X10^3/uL (3.6-10.0)
[2022-07-29] MEDS ORDERED: ZESTRIL TAB 20 MG ONE (08:05)
[2022-07-29] MEDS: LASIX PO SCH (08:07)
[2022-07-29] MEDS: ASPIRIN EC 81 MG PO SCH (08:07)
[2022-07-29] MEDS: PLAVIX PO SCH (08:08)
[2022-07-29] MEDS: LIPITOR TAB 20 MG PO SCH (08:08)
[2022-07-29] MEDS: MOBIC TAB 15 MG PO SCH (08:08)
[2022-07-29] MEDS: TRICOR TAB 145 MG PO SCH (08:09)
[2022-07-29] MEDS: TENORMIN PO SCH (08:09)
[2022-07-29] MEDS: ZESTRIL TAB 20 MG PO SCH (08:09)
[2022-07-29] MEDS: PROTONIX TAB 40 MG PO SCH (08:09)
[2022-07-29] MEDS: ZOLOFT PO SCH (08:10)
[2022-07-29] MEDS: DILAUDID INJ IVP PRN ×3 (08:22→19:35)
[2022-07-29] MEDS: PROVENTIL NEB TX 0.083% 2.5MG/ 3ML NEB SCH ×4 (08:40→20:32)
[2022-07-29] MEDS: PULMICORT NEB TX 0.5 MG NEB SCH ×2 (08:40→20:32)
[2022-07-29] MEDS: LR 1,000 ML IV 1,000 ML IV SCH ×2 (11:57→16:23)
[2022-07-29] MEDS: HEPARIN SODIUM IN D5W 25,000 UNITS/500 ML BAG IV PRN (14:56)
[2022-07-29 16:28] LABS: BASOPHILS # (AUTO) 0.1 X10^3/uL (0.0-0.1); BASOPHILS % (AUTO) 0.6 % (0.2-1.0); EOSINOPHILS # (AUTO) 0.5 x10^3/uL (0.0-0.2); EOSINOPHILS % (AUTO) 5.8 % (0.9-2.9); HEMATOCRIT 27.7 % (36.0-47.0); HEMOGLOBIN 9.1 g/dL (12.0-16.0); LYMPHOCYTES # (AUTO) 2.3 X10^3/uL (1.3-2.9); LYMPHOCYTES % (AUTO) 28.2 % (21.0-51.0); MEAN CORPUSCULAR HEMOGLOBIN 29.2 pg (27.0-34.0); MEAN CORPUSCULAR HGB CONC 32.8 g/dL (33.0-35.0); MEAN PLATELET VOLUME 11.7 fL (7.4-11.0); MONOCYTES # (AUTO) 0.6 x10^3/uL (0.3-0.8); MONOCYTES % (AUTO) 7.8 % (0.0-13.0); NEUTROPHILS # (AUTO) 4.7 x10^3/uL (2.2-4.8); NEUTROPHILS % (AUTO) 57.6 % (42.0-75.0); RED BLOOD COUNT 3.11 X10^6/uL (3.5-5.4); RED CELL DISTRIBUTION WIDTH 14.9 % (11.6-16.5); WHITE BLOOD COUNT 8.2 X10^3/uL (3.6-10.0)
[2022-07-29 21:29] LABS: BASOPHILS % (AUTO) 0.5 % (0.2-1.0); EOSINOPHILS # (AUTO) 0.5 x10^3/uL (0.0-0.2); EOSINOPHILS % (AUTO) 5.9 % (0.9-2.9); HEMATOCRIT 28.2 % (36.0-47.0); HEMOGLOBIN 9.2 g/dL (12.0-16.0); LYMPHOCYTES % (AUTO) 37.6 % (21.0-51.0); MEAN CORPUSCULAR HEMOGLOBIN 28.9 pg (27.0-34.0); MEAN CORPUSCULAR HGB CONC 32.6 g/dL (33.0-35.0); MEAN CORPUSCULAR VOLUME 88.7 fL (80.0-100.0); MEAN PLATELET VOLUME 12.1 fL (7.4-11.0); MONOCYTES # (AUTO) 0.5 x10^3/uL (0.3-0.8); MONOCYTES % (AUTO) 6.2 % (0.0-13.0); NEUTROPHILS # (AUTO) 3.9 x10^3/uL (2.2-4.8); NEUTROPHILS % (AUTO) 49.8 % (42.0-75.0); RED BLOOD COUNT 3.17 X10^6/uL (3.5-5.4); RED CELL DISTRIBUTION WIDTH 14.8 % (11.6-16.5); WHITE BLOOD COUNT 7.9 X10^3/uL (3.6-10.0)
--- NOTE | 2022-07-29 23:51 | NOTE.SOAP ---
Soap Note Note for Day of Date of Exam: 07/29/22 Subjective Data Subjective Data: Patient currently on heparin drip after percutaneous thrombectomy and balloon angioplasty of the DVT of the left popliteal and superficial femoral veins . Doing better . Also known to have occlusion of the left SFA after intervention with athrectomy and drug coated balloon angioplasty several months ago. Objective Data Temperature: 98.1 F Pulse Rate: 70 Respiratory Rate: 16 Blood Pressure: 135/63 O2 Sat by Pulse Oximetry: 95 Objective Data: Left foot warm, pain is less. Cyanosis of left toes improved. Assessment Assessment: DVT improved. On heparin drip. Occlusion of the left SFA Plan Plan: To OR tomorrow for intervention of left leg to include possible a therectomy, possible Angiojet, possible stenting of left leg arteries.
[2022-07-30] MEDS: LR 1,000 ML IV 1,000 ML IV SCH ×2 (05:10→13:29)
[2022-07-30] MEDS: LYRICA CAP 150 mg PO SCH ×3 (05:35→21:02)
[2022-07-30 05:42] LABS: BASOPHILS % (AUTO) 0.5 % (0.2-1.0); EOSINOPHILS # (AUTO) 0.4 x10^3/uL (0.0-0.2); HEMATOCRIT 28.3 % (36.0-47.0); HEMOGLOBIN 9.2 g/dL (12.0-16.0); LYMPHOCYTES % (AUTO) 22.6 % (21.0-51.0); MEAN CORPUSCULAR HEMOGLOBIN 28.9 pg (27.0-34.0); MEAN CORPUSCULAR HGB CONC 32.5 g/dL (33.0-35.0); MEAN CORPUSCULAR VOLUME 88.8 fL (80.0-100.0); MONOCYTES # (AUTO) 0.5 x10^3/uL (0.3-0.8); MONOCYTES % (AUTO) 5.2 % (0.0-13.0); NEUTROPHILS # (AUTO) 5.8 x10^3/uL (2.2-4.8); NEUTROPHILS % (AUTO) 66.7 % (42.0-75.0); RED BLOOD COUNT 3.18 X10^6/uL (3.5-5.4); WHITE BLOOD COUNT 8.7 X10^3/uL (3.6-10.0)
[2022-07-30] MEDS: PULMICORT NEB TX 0.5 MG NEB SCH ×2 (08:35→20:30)
[2022-07-30] MEDS: PROVENTIL NEB TX 0.083% 2.5MG/ 3ML NEB SCH ×5 (08:35→20:30)
[2022-07-30 09:26] LABS: BASOPHILS # (AUTO) 0.1 X10^3/uL (0.0-0.1); BASOPHILS % (AUTO) 0.8 % (0.2-1.0); EOSINOPHILS # (AUTO) 0.5 x10^3/uL (0.0-0.2); EOSINOPHILS % (AUTO) 5.5 % (0.9-2.9); HEMATOCRIT 28.2 % (36.0-47.0); HEMOGLOBIN 9.3 g/dL (12.0-16.0); LYMPHOCYTES # (AUTO) 2.3 X10^3/uL (1.3-2.9); LYMPHOCYTES % (AUTO) 23.7 % (21.0-51.0); MEAN CORPUSCULAR HEMOGLOBIN 28.8 pg (27.0-34.0); MEAN CORPUSCULAR VOLUME 87.3 fL (80.0-100.0); MEAN PLATELET VOLUME 11.8 fL (7.4-11.0); MONOCYTES # (AUTO) 0.5 x10^3/uL (0.3-0.8); NEUTROPHILS # (AUTO) 6.4 x10^3/uL (2.2-4.8); RED BLOOD COUNT 3.23 X10^6/uL (3.5-5.4); RED CELL DISTRIBUTION WIDTH 14.6 % (11.6-16.5); WHITE BLOOD COUNT 9.8 X10^3/uL (3.6-10.0)
[2022-07-30] MEDS ORDERED: MARCAINE 0.5% ONE (10:26)
[2022-07-30] MEDS ORDERED: HEPARIN SODIUM IN D5W 75,000 UNITS/1,500 ML BAG ONE (10:27)
[2022-07-30] MEDS ORDERED: PEPCID 20 MG VIAL ONE (10:38)
[2022-07-30] MEDS ORDERED: TORADOL 30 MG VIAL ONE (10:38)
[2022-07-30] MEDS ORDERED: ZOFRAN INJ 4 MG VIAL ONE (10:38)
[2022-07-30] MEDS ORDERED: XYLOCAINE 2 % (PLAIN) ONE (10:39)
[2022-07-30] MEDS ORDERED: DIPRIVAN VIAL 20 ML ONE ×2 (10:39→11:49)
[2022-07-30] MEDS ORDERED: ANCEF VIAL 1 GRAM ONE (10:40)
[2022-07-30] MEDS ORDERED: NS 100 ML IV 100 ML ONE (10:40)
[2022-07-30] MEDS ORDERED: VERSED ONE (10:42)
[2022-07-30] MEDS ORDERED: FENTANYL VIAL INJ 100 mcg ONE (10:42)
[2022-07-30] MEDS ORDERED: NS 1,000 ML IV 1,000 ML ONE (10:48)
[2022-07-30] MEDS ORDERED: PRECEDEX INJ VIAL IVP ONE (11:04)
[2022-07-30] MEDS ORDERED: KETAMINE HCL ONE (11:04)
[2022-07-30] MEDS ORDERED: OFIRMEV IV 1000 MG VIAL 1,000 MG/100 ML VIAL IV ONE (11:20)
[2022-07-30] MEDS ORDERED: HEPARIN SODIUM INJ 5000 UNITS ONE (11:26)
[2022-07-30] MEDS ORDERED: PROTAMINE SULFATE 50 MG VIAL ONE (11:26)
[2022-07-30] MEDS ORDERED: NS 500 ML IV 500 ML IV ONE (11:45)
--- NOTE | 2022-07-30 12:31 | OR.IMMED ---
IMMEDIATE POST-OP NOTE Immediate Post-Op Note Pre-Op Diagnosis: Complete total occlusion of proximal and mid left superficial femoral artery Post-Op Diagnosis: same Procedure: aortogram , athrectomy and drug-coated balloon angioplasty left superficial femoral artery, arteriogram left lower extremity Description of Procedure: see operative summary Surgeon/Supervisor Nut Processing: Kizzy Findings: Hx of atherectomy and drug-coated balloon angioplasty of the right superficial femoral artery several months ago now with occlusion after Cardiology stopped her Eliquis. History of factor II cascade deficiency . Estimated Blood Loss: < 50 cc Complications: none Progress Notes: Return to ICU, continue heparin drip, resume diabetic diet. Final Diagnosis: as above
[2022-07-30] MEDS: DILAUDID INJ IVP PRN ×4 (12:45→23:18)
[2022-07-30] MEDS: HEPARIN SODIUM IN D5W 25,000 UNITS/500 ML BAG IV PRN ×2 (13:03→13:04)
[2022-07-30] MEDS ORDERED: HEPARIN SODIUM INJ 5000 UNITS IVP ONE (13:09)
[2022-07-30] MEDS: LASIX PO SCH (13:15)
[2022-07-30] MEDS: ASPIRIN EC 81 MG PO SCH (13:15)
[2022-07-30] MEDS: PROTONIX TAB 40 MG PO SCH (13:16)
[2022-07-30] MEDS: PLAVIX PO SCH (13:16)
[2022-07-30] MEDS: TENORMIN PO SCH (13:16)
[2022-07-30] MEDS: ZESTRIL TAB 20 MG PO SCH (13:16)
[2022-07-30] MEDS: MOBIC TAB 15 MG PO SCH (13:16)
[2022-07-30] MEDS: TRICOR TAB 145 MG PO SCH (13:16)
[2022-07-30] MEDS: LIPITOR TAB 20 MG PO SCH (13:16)
[2022-07-30] MEDS: ZOLOFT PO SCH (13:17)
--- NOTE | 2022-07-30 13:45 | OR.IMMED ---
IMMEDIATE POST-OP NOTE Immediate Post-Op Note Pre-Op Diagnosis: RLQ large wound , new epigastric abscess. Post-Op Diagnosis: same Procedure: excisional debridment 25x 8x [address] and place wound vacuum. Incise, drain and pack 5 x 5 x 4 cm abscess of epigastrium abdominal wall. Description of Procedure: see operative summary Surgeon/Press Machine Operator: Kizzy Estimated Blood Loss: < 10 cc Complications: none Progress Notes: Return to floor , continue wound vacuum and wound packing. Final Diagnosis: as above
[2022-07-30] MEDS: PERCOCET TAB 5/325 MG PO PRN ×2 (17:13→21:30)
--- NOTE | 2022-07-30 19:57 | DR.OPNOTE ---
OP NOTE Pre-Op Diagnosis: rest pain left foot and leg Post-Op Diagnosis: same Procedure Date Date Of Procedure: 07/30/22 Procedure: PROCEDURE: diagnostic aortogram , diagnostic arteriogram left lower extremity, atherectomy and Drug Coated balloon angioplasty of the proximal left superficial femoral artery NARRATIVE : The patient was taken to the operative suite and was placed in the supine position. The right groin and entire left leg were prepped and draped in sterile fashion. Patient was administered intravenous sedation which was supervised by myself. Time out for the procedure obtained. Ultrasound used to identify the right femoral artery and the skin overlying it infiltrated with 0. 5% Marcaine. Ultrasound used to guide puncture of the right femoral artery and a 0. 012 inch guidewire placed . Incision made over the guide wire at the skin edge and a micro sheath placed over the guide wire into the right femoral artery. Small wire exchanged for a 0. 035 inch [employer]age glidewire and the micro sheath exchanged for a 5 Fr sheath . Patient was given 5000 units of intravenous heparin. Aortic diagnostic catheter placed over the guide wire into the aorta and diagnostic aortogram carried out showing a high bifurcation with no obstruction of the aorta or iliac arteries. The aorta catheter was used to steer the guide wire down the left side to the left femoral artery. The diagnostic aortic catheter was exchanged for a [place] catheter and sequential arteriogram carried out of the entire left leg showing severe stenosis at the take-off of the left superficial femoral artery becoming complete total occlusion with reconstitution above the adductor canal. Guidewire taken across this total occlusion parking the [place] catheter in the popliteal artery as selective catherization . Arteriogram carried out of the rest the leg showing normal popliteal artery with normal anterior and posterior tibial arteries. The patient was given 5000 units of Heparin . 5 Fr sheath exchanged for a 7 Fr destination sheath .[place] catheter was used to exchange the 0. 035 glide wire for a 0. 014 inch wire. Over this wire we placed the [place] atherectomy device and atherectomy carried out with two passes through the proximal and middle left superficial left femoral artery . [place] removed and the artery ballooned open with a 6 mm by 200 mm [employer] drug-coated balloon. This was held open for three minutes. Arteriogram showed an area of stenosis just beyond the distal aspect of the previously placed balloon, therefore an additional 6 mm by 60 mm drug-coated balloon was placed distal to the original balloon and and it inflated for 3 minutes. Post- procedure arteriogram showed excellent result. Wires and devices removed. The 7 Fr sheath pulled back into the aorta and a 0. 035 inch guide wire placed . Destination sheath was removed and exchanged for an Angioseal device used to close the puncture of the right femoral artery Dressing applied and the After all patient taking back to the ICU. 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 Type of Fluids Used:: Lactated Ringers Total Amount of Fluid Infused:: 200cc EBL: < 50 cc Complications:: none Needle/Sponge Count:: correct Disposition/Condition: Pt. tolerated procedure without difficulty. Taken back to ICU in stable condition.
[2022-07-30] MEDS: NovoLIN R (or HumuLIN R) SC PRN (21:03)
[2022-07-31] MEDS: LR 1,000 ML IV 1,000 ML IV SCH ×3 (01:35→14:59)
[2022-07-31] MEDS ORDERED: HEPARIN SODIUM INJ 5000 UNITS IVP ONE ×2 (01:45→15:36)
[2022-07-31] MEDS: LYRICA CAP 150 mg PO SCH ×3 (05:15→21:28)
[2022-07-31] MEDS: PERCOCET TAB 5/325 MG PO PRN ×2 (05:16→11:39)
[2022-07-31] MEDS: PROVENTIL NEB TX 0.083% 2.5MG/ 3ML NEB SCH ×4 (08:03→21:13)
[2022-07-31] MEDS: PULMICORT NEB TX 0.5 MG NEB SCH ×2 (08:03→21:13)
[2022-07-31 08:11] LABS: BASOPHILS # (AUTO) 0.2 X10^3/uL (0.0-0.1); BASOPHILS % (AUTO) 2.7 % (0.2-1.0); EOSINOPHILS # (AUTO) 0.5 x10^3/uL (0.0-0.2); EOSINOPHILS % (AUTO) 6.1 % (0.9-2.9); HEMATOCRIT 26.4 % (36.0-47.0); HEMOGLOBIN 8.7 g/dL (12.0-16.0); LYMPHOCYTES # (AUTO) 1.8 X10^3/uL (1.3-2.9); LYMPHOCYTES % (AUTO) 23.3 % (21.0-51.0); MEAN CORPUSCULAR HEMOGLOBIN 29.2 pg (27.0-34.0); MEAN CORPUSCULAR HGB CONC 32.9 g/dL (33.0-35.0); MEAN CORPUSCULAR VOLUME 88.9 fL (80.0-100.0); MEAN PLATELET VOLUME 12.1 fL (7.4-11.0); MONOCYTES # (AUTO) 0.4 x10^3/uL (0.3-0.8); MONOCYTES % (AUTO) 5.1 % (0.0-13.0); NEUTROPHILS # (AUTO) 4.8 x10^3/uL (2.2-4.8); NEUTROPHILS % (AUTO) 62.8 % (42.0-75.0); RED BLOOD COUNT 2.97 X10^6/uL (3.5-5.4); RED CELL DISTRIBUTION WIDTH 14.8 % (11.6-16.5); WHITE BLOOD COUNT 7.6 X10^3/uL (3.6-10.0)
[2022-07-31] MEDS ORDERED: ZESTRIL TAB 20 MG ONE (08:15)
[2022-07-31] MEDS: ASPIRIN EC 81 MG PO SCH (08:21)
[2022-07-31] MEDS: LASIX PO SCH (08:21)
[2022-07-31 08:22] LABS: ALANINE AMINOTRANSFERASE 14 Units/L (12-78); ALBUMIN 2.4 g/dL (3.4-5.0); ALKALINE PHOSPHATASE 79 Units/L (46-116); ASPARTATE AMINO TRANSFERASE 19 Units/L (15-37); BLOOD UREA NITROGEN 12 mg/dL (7-18); CALCIUM 7.7 mg/dL (8.5-10.1); CARBON DIOXIDE 32.8 mmol/L (21-32); CHLORIDE 102 mmol/L (98-107); COR NA(FOR HYPERGLY) 140 mmol/L (136-145); CREATININE 0.74 mg/dL (0.55-1.02); SODIUM 138 mmol/L (136-145); TOTAL PROTEIN 5.9 g/dL (6.4-8.2); eGFR NON BLACK RACES > 60 (>60)
[2022-07-31] MEDS: PLAVIX PO SCH (08:22)
[2022-07-31] MEDS: TENORMIN PO SCH (08:22)
[2022-07-31] MEDS: MOBIC TAB 15 MG PO SCH (08:22)
[2022-07-31] MEDS: PROTONIX TAB 40 MG PO SCH (08:22)
[2022-07-31] MEDS: LIPITOR TAB 20 MG PO SCH (08:22)
[2022-07-31] MEDS: DILAUDID INJ IVP PRN ×5 (08:23→23:14)
[2022-07-31] MEDS: ZOLOFT PO SCH (08:23)
[2022-07-31] MEDS: TRICOR TAB 145 MG PO SCH (08:23)
[2022-07-31] MEDS: ZESTRIL TAB 20 MG PO SCH (08:23)
[2022-07-31] MEDS: NovoLIN R (or HumuLIN R) SC PRN ×2 (11:35→21:29)
[2022-07-31] MEDS: XARELTO PO SCH (18:11)
--- NOTE | 2022-08-01 00:03 | NOTE.SOAP ---
Soap Note Note for Day of Date of Exam: 07/31/22 Subjective Data Subjective Data: Now has had intervention of then left popliteal and superficial femoral veins and the left superficial femoral artery. On heparin drip. Objective Data Temperature: 98.2 F Pulse Rate: 63 Respiratory Rate: 12 Blood Pressure: 122/58 O2 Sat by Pulse Oximetry: 95 Objective Data: Warm ledt foot. Cyanosis of trhe toes left foot are improved. Biphasic dopplere signal of left posterior tibial artery and anterior tibial artery. Assessment Assessment: DVT of left leg resolved. Occlusion left SFA now resolved Plan Plan: Start Xarelto,stop heparin drip , home soon
[2022-08-01] MEDS: LR 1,000 ML IV 1,000 ML IV SCH ×4 (01:26→18:28)
[2022-08-01] MEDS: DILAUDID INJ IVP PRN ×6 (02:02→22:51)
[2022-08-01 02:34] LABS: BASOPHILS # (AUTO) 0.1 X10^3/uL (0.0-0.1); BASOPHILS % (AUTO) 0.6 % (0.2-1.0); EOSINOPHILS # (AUTO) 0.5 x10^3/uL (0.0-0.2); EOSINOPHILS % (AUTO) 5.3 % (0.9-2.9); HEMATOCRIT 26.7 % (36.0-47.0); HEMOGLOBIN 8.8 g/dL (12.0-16.0); LYMPHOCYTES # (AUTO) 2.5 X10^3/uL (1.3-2.9); LYMPHOCYTES % (AUTO) 28.8 % (21.0-51.0); MEAN CORPUSCULAR HEMOGLOBIN 29.3 pg (27.0-34.0); MEAN CORPUSCULAR VOLUME 88.8 fL (80.0-100.0); MEAN PLATELET VOLUME 11.4 fL (7.4-11.0); MONOCYTES # (AUTO) 0.6 x10^3/uL (0.3-0.8); MONOCYTES % (AUTO) 6.6 % (0.0-13.0); NEUTROPHILS # (AUTO) 5.1 x10^3/uL (2.2-4.8); NEUTROPHILS % (AUTO) 58.7 % (42.0-75.0); RED BLOOD COUNT 3.01 X10^6/uL (3.5-5.4); WHITE BLOOD COUNT 8.7 X10^3/uL (3.6-10.0)
[2022-08-01 02:48] LABS: ALANINE AMINOTRANSFERASE 14 Units/L (12-78); ALBUMIN 2.6 g/dL (3.4-5.0); ALKALINE PHOSPHATASE 80 Units/L (46-116); ASPARTATE AMINO TRANSFERASE 16 Units/L (15-37); BLOOD UREA NITROGEN 14 mg/dL (7-18); CALCIUM 7.8 mg/dL (8.5-10.1); CARBON DIOXIDE 32.3 mmol/L (21-32); CHLORIDE 102 mmol/L (98-107); COR CA(FOR HYPOALB) 8.9 mg/dL (8.5-10.1); COR NA(FOR HYPERGLY) 138 mmol/L (136-145); CREATININE 1.07 mg/dL (0.55-1.02); SODIUM 137 mmol/L (136-145); TOTAL PROTEIN 6.2 g/dL (6.4-8.2); eGFR NON BLACK RACES 55 (>60)
[2022-08-01] MEDS ORDERED: HEPARIN SODIUM INJ 5000 UNITS IVP ONE (03:05)
[2022-08-01] MEDS: HEPARIN SODIUM IN D5W 25,000 UNITS/500 ML BAG IV PRN (03:32)
[2022-08-01] MEDS: LYRICA CAP 150 mg PO SCH ×3 (05:33→21:06)
[2022-08-01] MEDS: PROVENTIL NEB TX 0.083% 2.5MG/ 3ML NEB SCH ×4 (08:12→20:35)
[2022-08-01] MEDS: PULMICORT NEB TX 0.5 MG NEB SCH ×2 (08:12→20:35)
[2022-08-01] MEDS ORDERED: ZESTRIL TAB 20 MG ONE (09:43)
[2022-08-01] MEDS: LASIX PO SCH (09:45)
[2022-08-01] MEDS: ZOLOFT PO SCH (09:45)
[2022-08-01] MEDS: LIPITOR TAB 20 MG PO SCH (09:45)
[2022-08-01] MEDS: PROTONIX TAB 40 MG PO SCH (09:46)
[2022-08-01] MEDS: ZESTRIL TAB 20 MG PO SCH (09:46)
[2022-08-01] MEDS: TRICOR TAB 145 MG PO SCH (09:46)
[2022-08-01] MEDS: ASPIRIN EC 81 MG PO SCH (09:46)
[2022-08-01] MEDS: TENORMIN PO SCH (09:47)
[2022-08-01] MEDS: PLAVIX PO SCH (09:47)
[2022-08-01] MEDS: MOBIC TAB 15 MG PO SCH (09:56)
--- NOTE | 2022-08-01 14:46 | VAS ---
HISTORY: [Extremity pain, swelling, and edema]Study: Left lower extremity Doppler venous ultrasound.TECHNIQUE: Multiple barragan scale and color flow Doppler images of the deep venous system were obtained of the [left] lower extremity.FINDINGS:The deep venous system of the [left] lower extremity evaluated from the level of the common femoral vein through the popliteal vein. Normal color flow and augmentation can be observed. In addition, normal compression is seen throughout the deep venous system. Left-sided popliteal cyst appreciated as well, measuring roughly 3 x 2 cm without evidence for complexity.IMPRESSION:1. Negative examination for DVT.Electronically signed by: DANDRE ST III (Aug 01, 2022 14:45:02)
[2022-08-01] MEDS: XARELTO PO SCH (21:06)
--- NOTE | 2022-08-01 23:45 | NOTE.SOAP ---
Soap Note Note for Day of Date of Exam: 08/01/22 Subjective Data Subjective Data: I was called early this morning for pain and increased swelling of the left leg. At that time we restarted the heparin drip. On exam the patients left foot is warm with by biphasic doppler signal in the posterior tibial and anterior tibial arteries. The cyanosis of the toes is improved. She was noted to have significant ecchymosis to the left popliteal area consistent with the needle stick of the popliteal vein several days prior When the patient underwent thrombolysis in percutaneous thrombectomy of the left top of teal and superficial femoral veins The area is soft. Objective Data Temperature: 98.0 F Pulse Rate: 68 Respiratory Rate: 22 Blood Pressure: 107/68 O2 Sat by Pulse Oximetry: 95 Objective Data: Ecchymosis of the left Popliteal area distal posterior thigh and proximal posterior calf calf. Area is soft. Patient with biphasic Doppler signals in both the anterior tibial and posterior tibial arteries of the left side. Venous Doppler today shows no DVT of the left leg. All thrombus now resolved . Hgb= 8.8, Cr=1/07, WBC=8.7 Assessment Assessment: Resolution of DVT of the left leg with peripheral thrombolysis and angioplasty of the left leg deep veins. Also this admission with atherectomy and drug coated balloon angioplasty of the left SFA( after recent thrombosis), Has been up and walking . Plan Plan: D/C heparin drip, continue Xarelto and Plavix. D/C home tomorrow.
[2022-08-02] MEDS: LR 1,000 ML IV 1,000 ML IV SCH ×2 (04:09→05:30)
[2022-08-02 05:28] LABS: BASOPHILS # (AUTO) 0.1 X10^3/uL (0.0-0.1); BASOPHILS % (AUTO) 0.8 % (0.2-1.0); EOSINOPHILS # (AUTO) 0.4 x10^3/uL (0.0-0.2); EOSINOPHILS % (AUTO) 5.8 % (0.9-2.9); HEMOGLOBIN 8.7 g/dL (12.0-16.0); LYMPHOCYTES # (AUTO) 2.1 X10^3/uL (1.3-2.9); LYMPHOCYTES % (AUTO) 29.1 % (21.0-51.0); MEAN CORPUSCULAR HEMOGLOBIN 28.7 pg (27.0-34.0); MEAN CORPUSCULAR HGB CONC 32.4 g/dL (33.0-35.0); MEAN CORPUSCULAR VOLUME 88.7 fL (80.0-100.0); MEAN PLATELET VOLUME 11.7 fL (7.4-11.0); MONOCYTES # (AUTO) 0.5 x10^3/uL (0.3-0.8); MONOCYTES % (AUTO) 6.4 % (0.0-13.0); NEUTROPHILS # (AUTO) 4.3 x10^3/uL (2.2-4.8); NEUTROPHILS % (AUTO) 57.9 % (42.0-75.0); RED BLOOD COUNT 3.04 X10^6/uL (3.5-5.4); RED CELL DISTRIBUTION WIDTH 14.9 % (11.6-16.5); WHITE BLOOD COUNT 7.4 X10^3/uL (3.6-10.0)
[2022-08-02] MEDS: LYRICA CAP 150 mg PO SCH (05:30)
[2022-08-02 05:42] LABS: ALANINE AMINOTRANSFERASE 15 Units/L (12-78); ALBUMIN 2.7 g/dL (3.4-5.0); ALKALINE PHOSPHATASE 82 Units/L (46-116); ASPARTATE AMINO TRANSFERASE 18 Units/L (15-37); BLOOD UREA NITROGEN 11 mg/dL (7-18); CARBON DIOXIDE 34.4 mmol/L (21-32); CHLORIDE 102 mmol/L (98-107); COR NA(FOR HYPERGLY) 142 mmol/L (136-145); CREATININE 0.82 mg/dL (0.55-1.02); SODIUM 141 mmol/L (136-145); TOTAL PROTEIN 6.4 g/dL (6.4-8.2); eGFR NON BLACK RACES > 60 (>60)
[2022-08-02] MEDS: PULMICORT NEB TX 0.5 MG NEB SCH (08:45)
[2022-08-02] MEDS: PROVENTIL NEB TX 0.083% 2.5MG/ 3ML NEB SCH (08:45)
[2022-08-02] MEDS ORDERED: ZESTRIL TAB 20 MG ONE (09:12)
[2022-08-02] MEDS: ASPIRIN EC 81 MG PO SCH (09:39)
[2022-08-02] MEDS: LIPITOR TAB 20 MG PO SCH (09:39)
[2022-08-02] MEDS: ZESTRIL TAB 20 MG PO SCH (09:39)
[2022-08-02] MEDS: LASIX PO SCH (09:39)
[2022-08-02] MEDS: ZOLOFT PO SCH (09:39)
[2022-08-02] MEDS: PROTONIX TAB 40 MG PO SCH (09:40)
[2022-08-02] MEDS: TENORMIN PO SCH (09:40)
[2022-08-02] MEDS: MOBIC TAB 15 MG PO SCH (09:40)
[2022-08-02] MEDS: TRICOR TAB 145 MG PO SCH (09:40)
[2022-08-02] MEDS: PLAVIX PO SCH (09:41)
[2022-08-02] MEDS: XARELTO PO SCH (09:41)
--- NOTE | 2022-08-02 10:51 | W.DIS.FURT ---
Summary of Discharge Discharge Summary of Date Date of Exam: 08/02/22 Admission Date Date of Admission: 07/24/22 Admission Diagnosis Hospital Course: This is a 61 year old female who several weeks ago underwent atherectomy and Drug coated balloon angioplasty of the left superficial femoral artery followed by stenting of a compressed left iliac vein. The patient had hypertension post- procedure at that time with rise in troponin and was transferred to [place] where she underwent a cardiac catheterization which was negative. She has a history of a factor II deficiency and had been on blood thinners. At the time she was in [place] they stopped the blood thinner and kept her on Plavix only, unbeknownst to me. She did not come see me for three months and presented with a cool swollen left leg with blue toes of about 4 weeks duration by her history . She was admitted and placed on a Heparin drip. Ultrasound of the vessels showed DVT of the left popliteal and superficial femoral veins .CT angiogram confirmed re- occclusion of the right superficial femoral artery. On July 25 she was taken to the operating Suite with percutaneous placement of an EKOS catheter by the left popliteal vein and overnight had EKOS TPA thrombolysis. The next day she was taken back to the operating suite and repeat venogram still showed some clot although the left leg was recanalized. And that time she underwent Angiojet and Clot Jonnathan percutaneous thrombectomy and balloon angioplasty of the veins . She was maintained on Heparin drip over the weekend. On July 30 she was taken back to the operating Suite where she underwent atherectomy and Juan coated balloon angioplasty of the recurrent occlusion of the right superficial femoral artery . She was maintained on Heparin drip and on the morning of August 01 had increasing pain of the left leg and swelling. Exam showed ecchymosis to the left popliteal area where the popliteal vein had been approached several days prior. Distl pulses were intact arteries with biphasic flow at the ankle of both the left dorsalis pedis and posterior tibial arteries . Repeat venous Doppler showed no DVT. She will be discharged with a walker to aid with walking. Continue usual home medications with the addition of Xarelto 15 mg BID x 3 weeks and then change to 20 mg a day. Also remain on Plavix and I will see in ther he office in one week. She likely she will lose the skin of the left toes but I think they will be viable . Vital Signs: Vital Signs (72 hours) 08/01/22 00:03 08/01/22 23:44 07/30/22 11:04 Temperature 98.2 F 98.0 F Pulse Rate 63 68 Pulse Rate [Apical] Respiratory Rate 12 22 16 Blood Pressure 122/58 107/68 Blood Pressure [Left Arm] O2 Sat by Pulse Oximetry 95 95 Oxygen Delivery Method Oxygen Flow Rate FIO2% 07/30/22 12:45 07/30/22 13:15 07/30/22 12:45 Temperature 98 F Pulse Rate Pulse Rate [Apical] 83 Respiratory Rate 20 20 24 Blood Pressure Blood Pressure [Left Arm] 136/63 O2 Sat by Pulse Oximetry 97 Oxygen Delivery Method Oxygen Flow Rate FIO2% 07/30/22 13:00 07/30/22 13:15 07/30/22 13:30 Temperature 98.2 F 98.2 F 98.2 F Pulse Rate Pulse Rate [Apical] 78 77 70 Respiratory Rate 24 22 22 Blood Pressure Blood Pressure [Left Arm] 135/64 121/58 109/52 O2 Sat by Pulse Oximetry 97 97 97 Oxygen Delivery Method Oxygen Flow Rate FIO2% 07/30/22 13:45 07/30/22 12:39 07/30/22 12:44 Temperature 98.1 F Pulse Rate 85 Pulse Rate [Apical] 69 Respiratory Rate 24 Blood Pressure 136/63 Blood Pressure [Left Arm] 101/53 O2 Sat by Pulse Oximetry 98 95 Oxygen Delivery Method Oxygen Flow Rate FIO2% 07/30/22 12:44 07/30/22 12:45 07/30/22 12:45 Temperature Pulse Rate 83 83 Pulse Rate [Apical] Respiratory Rate 27 H Blood Pressure 133/61 Blood Pressure [Left Arm] O2 Sat by Pulse Oximetry Oxygen Delivery Method Oxygen Flow Rate FIO2% 07/30/22 13:00 07/30/22 13:00 07/30/22 13:15 Temperature Pulse Rate 78 Pulse Rate [Apical] Respiratory Rate Blood Pressure 135/64 121/58 Blood Pressure [Left Arm] O2 Sat by Pulse Oximetry 97 Oxygen Delivery Method Oxygen Flow Rate FIO2% 07/30/22 13:15 07/30/22 13:39 07/30/22 13:39 Temperature Pulse Rate 77 76 Pulse Rate [Apical] Respiratory Rate Blood Pressure 109/52 Blood Pressure [Left Arm] O2 Sat by Pulse Oximetry 97 98 Oxygen Delivery Method Oxygen Flow Rate FIO2% 07/30/22 13:39 07/30/22 13:45 07/30/22 13:45 Temperature Pulse Rate 74 Pulse Rate [Apical] Respiratory Rate Blood Pressure 109/52 101/53 Blood Pressure [Left Arm] O2 Sat by Pulse Oximetry 97 Oxygen Delivery Method Oxygen Flow Rate FIO2% 07/30/22 14:00 07/30/22 14:45 07/30/22 15:07 Temperature 97.9 F Pulse Rate 74 Pulse Rate [Apical] 69 Respiratory Rate 20 20 Blood Pressure Blood Pressure [Left Arm] 98/51 O2 Sat by Pulse Oximetry 98 93 L Oxygen Delivery Method Oxygen Flow Rate FIO2% 07/30/22 14:04 07/30/22 14:04 07/30/22 14:31 Temperature Pulse Rate 71 63 Pulse Rate [Apical] Respiratory Rate Blood Pressure 109/53 Blood Pressure [Left Arm] O2 Sat by Pulse Oximetry 97 93 L Oxygen Delivery Method Oxygen Flow Rate FIO2% 07/30/22 14:31 07/30/22 15:00 07/30/22 15:00 Temperature Pulse Rate 72 Pulse Rate [Apical] Respiratory Rate Blood Pressure 98/51 117/57 Blood Pressure [Left Arm] O2 Sat by Pulse Oximetry 94 L Oxygen Delivery Method Oxygen Flow Rate FIO2% 07/30/22 15:45 07/30/22 15:30 07/30/22 15:30 Temperature 98.8 F 98.8 F Pulse Rate 65 Pulse Rate [Apical] 72 Respiratory Rate 20 91 H Blood Pressure 114/54 Blood Pressure [Left Arm] 114/54 O2 Sat by Pulse Oximetry 97 95 Oxygen Delivery Method Oxygen Flow Rate FIO2% 07/30/22 16:00 07/30/22 16:00 07/30/22 15:37 Temperature 98.7 F Pulse Rate 62 Pulse Rate [Apical] Respiratory Rate 91 H 20 Blood Pressure 107/64 Blood Pressure [Left Arm] O2 Sat by Pulse Oximetry Oxygen Delivery Method Oxygen Flow Rate FIO2% 07/30/22 16:45 07/30/22 16:30 07/30/22 16:30 Temperature 98.7 F Pulse Rate 65 Pulse Rate [Apical] 76 Respiratory Rate 20 Blood Pressure 103/59 Blood Pressure [Left Arm] 103/59 O2 Sat by Pulse Oximetry 92 L 100 Oxygen Delivery Method Oxygen Flow Rate FIO2% 07/30/22 17:00 07/30/22 17:00 07/30/22 17:13 Temperature Pulse Rate 70 Pulse Rate [Apical] Respiratory Rate 18 20 Blood Pressure 108/59 Blood Pressure [Left Arm] O2 Sat by Pulse Oximetry 92 L Oxygen Delivery Method Oxygen Flow Rate FIO2% 07/30/22 17:45 07/30/22 18:12 07/30/22 18:16 Temperature 98.4 F Pulse Rate Pulse Rate [Apical] 84 Respiratory Rate 20 20 20 Blood Pressure Blood Pressure [Left Arm] 112/61 O2 Sat by Pulse Oximetry 94 L Oxygen Delivery Method Oxygen Flow Rate FIO2% 07/30/22 17:30 07/30/22 17:30 07/30/22 18:00 Temperature Pulse Rate 90 Pulse Rate [Apical] Respiratory Rate 22 Blood Pressure 112/61 102/63 Blood Pressure [Left Arm] O2 Sat by Pulse Oximetry 94 L Oxygen Delivery Method Oxygen Flow Rate FIO2% 07/30/22 18:00 07/30/22 18:30 07/30/22 18:30 Temperature Pulse Rate 79 73 Pulse Rate [Apical] Respiratory Rate 13 12 Blood Pressure 113/60 Blood Pressure [Left Arm] O2 Sat by Pulse Oximetry 91 L 97 Oxygen Delivery Method Oxygen Flow Rate FIO2% 07/30/22 18:46 07/30/22 19:00 07/30/22 19:00 Temperature Pulse Rate 66 Pulse Rate [Apical] Respiratory Rate 20 14 Blood Pressure 108/64 Blood Pressure [Left Arm] O2 Sat by Pulse Oximetry 96 Oxygen Delivery Method Oxygen Flow Rate FIO2% 07/30/22 19:30 07/30/22 19:30 07/30/22 20:00 Temperature Pulse Rate 68 Pulse Rate [Apical] Respiratory Rate 11 L Blood Pressure 118/71 113/59 Blood Pressure [Left Arm] O2 Sat by Pulse Oximetry 89 L Oxygen Delivery Method Oxygen Flow Rate FIO2% 07/30/22 20:00 07/30/22 20:30 07/30/22 20:30 Temperature Pulse Rate 79 69 Pulse Rate [Apical] Respiratory Rate 28 H Blood Pressure Blood Pressure [Left Arm] O2 Sat by Pulse Oximetry 92 L 95 Oxygen Delivery Method Nasal Cannula Oxygen Flow Rate 2 FIO2% 07/30/22 21:30 07/30/22 19:00 07/30/22 20:30 Temperature Pulse Rate 77 Pulse Rate [Apical] Respiratory Rate 20 18 Blood Pressure Blood Pressure [Left Arm] O2 Sat by Pulse Oximetry 94 L Oxygen Delivery Method Nasal Cannula Oxygen Flow Rate 2 FIO2% 07/30/22 20:30 07/30/22 21:01 07/30/22 21:01 Temperature 98.1 F Pulse Rate 93 H Pulse Rate [Apical] Respiratory Rate 27 H Blood Pressure 119/60 126/60 Blood Pressure [Left Arm] O2 Sat by Pulse Oximetry 91 L Oxygen Delivery Method Oxygen Flow Rate FIO2% 07/30/22 21:30 07/30/22 21:30 07/30/22 23:18 Temperature Pulse Rate 71 Pulse Rate [Apical] Respiratory Rate 15 20 Blood Pressure 128/60 Blood Pressure [Left Arm] O2 Sat by Pulse Oximetry 91 L Oxygen Delivery Method Oxygen Flow Rate FIO2% 07/30/22 22:30 07/30/22 23:00 07/30/22 22:00 Temperature Pulse Rate 77 Pulse Rate [Apical] Respiratory Rate 20 12 Blood Pressure 112/52 127/60 Blood Pressure [Left Arm] O2 Sat by Pulse Oximetry 94 L Oxygen Delivery Method Oxygen Flow Rate FIO2% 07/30/22 22:00 07/30/22 23:20 07/30/22 23:20 Temperature Pulse Rate 68 65 Pulse Rate [Apical] Respiratory Rate 15 12 Blood Pressure 112/52 Blood Pressure [Left Arm] O2 Sat by Pulse Oximetry 92 L 94 L Oxygen Delivery Method Oxygen Flow Rate FIO2% 07/31/22 00:00 07/31/22 00:00 07/30/22 23:48 Temperature Pulse Rate 62 Pulse Rate [Apical] Respiratory Rate 13 11 L Blood Pressure 123/59 Blood Pressure [Left Arm] O2 Sat by Pulse Oximetry 88 L Oxygen Delivery Method Oxygen Flow Rate FIO2% 07/31/22 01:00 07/31/22 01:40 07/31/22 01:40 Temperature Pulse Rate 68 71 Pulse Rate [Apical] Respiratory Rate 12 18 Blood Pressure 151/67 175/84 Blood Pressure [Left Arm] O2 Sat by Pulse Oximetry 97 97 Oxygen Delivery Method Oxygen Flow Rate FIO2% 07/31/22 01:41 07/31/22 01:41 07/31/22 02:00 Temperature Pulse Rate 66 Pulse Rate [Apical] Respiratory Rate 10 L Blood Pressure 151/67 167/91 Blood Pressure [Left Arm] O2 Sat by Pulse Oximetry 97 Oxygen Delivery Method Oxygen Flow Rate FIO2% 07/31/22 02:00 07/31/22 02:12 07/31/22 02:12 Temperature Pulse Rate 69 73 Pulse Rate [Apical] Respiratory Rate 21 20 Blood Pressure 175/75 Blood Pressure [Left Arm] O2 Sat by Pulse Oximetry 93 L 99 Oxygen Delivery Method Oxygen Flow Rate FIO2% 07/31/22 03:00 07/31/22 03:00 07/31/22 04:00 Temperature 98.2 F Pulse Rate 73 69 Pulse Rate [Apical] Respiratory Rate 12 13 Blood Pressure 152/67 Blood Pressure [Left Arm] O2 Sat by Pulse Oximetry 97 96 Oxygen Delivery Method Oxygen Flow Rate FIO2% 07/31/22 04:01 07/31/22 04:01 07/31/22 05:16 Temperature Pulse Rate 70 Pulse Rate [Apical] Respiratory Rate 24 21 Blood Pressure 119/69 Blood Pressure [Left Arm] O2 Sat by Pulse Oximetry 94 L Oxygen Delivery Method Oxygen Flow Rate FIO2% 07/31/22 04:01 07/31/22 05:00 07/31/22 05:00 Temperature Pulse Rate 61 Pulse Rate [Apical] Respiratory Rate 9 L Blood Pressure 119/69 137/61 Blood Pressure [Left Arm] O2 Sat by Pulse Oximetry 100 Oxygen Delivery Method Oxygen Flow Rate FIO2% 07/31/22 06:00 07/31/22 06:00 07/31/22 06:16 Temperature Pulse Rate 64 Pulse Rate [Apical] Respiratory Rate 15 21 Blood Pressure 109/55 Blood Pressure [Left Arm] O2 Sat by Pulse Oximetry 97 Oxygen Delivery Method Oxygen Flow Rate FIO2% 07/31/22 08:23 07/31/22 08:03 07/31/22 08:03 Temperature Pulse Rate 73 Pulse Rate [Apical] Respiratory Rate 18 Blood Pressure Blood Pressure [Left Arm] O2 Sat by Pulse Oximetry 93 L Oxygen Delivery Method Room Air Oxygen Flow Rate 2 FIO2% 28 07/31/22 07:00 07/31/22 07:00 07/31/22 07:00 Temperature Pulse Rate 83 Pulse Rate [Apical] Respiratory Rate 13 Blood Pressure 109/53 Blood Pressure [Left Arm] O2 Sat by Pulse Oximetry 94 L Oxygen Delivery Method Nasal Cannula Oxygen Flow Rate 2 FIO2% 07/31/22 08:00 07/31/22 08:00 07/31/22 09:00 Temperature Pulse Rate 78 Pulse Rate [Apical] Respiratory Rate 24 Blood Pressure 147/68 139/62 Blood Pressure [Left Arm] O2 Sat by Pulse Oximetry 92 L Oxygen Delivery Method Oxygen Flow Rate FIO2% 07/31/22 09:00 07/31/22 08:53 07/31/22 10:18 Temperature Pulse Rate 84 Pulse Rate [Apical] Respiratory Rate 14 18 18 Blood Pressure Blood Pressure [Left Arm] O2 Sat by Pulse Oximetry 95 Oxygen Delivery Method Oxygen Flow Rate FIO2% 07/31/22 10:48 07/31/22 10:00 07/31/22 10:00 Temperature Pulse Rate 73 Pulse Rate [Apical] Respiratory Rate 18 15 Blood Pressure 105/54 Blood Pressure [Left Arm] O2 Sat by Pulse Oximetry 98 Oxygen Delivery Method Oxygen Flow Rate FIO2% 07/31/22 11:00 07/31/22 11:00 07/31/22 11:39 Temperature Pulse Rate 62 Pulse Rate [Apical] Respiratory Rate 12 18 Blood Pressure 129/58 Blood Pressure [Left Arm] O2 Sat by Pulse Oximetry 94 L Oxygen Delivery Method Oxygen Flow Rate FIO2% 07/31/22 12:00 07/31/22 12:00 07/31/22 12:39 Temperature Pulse Rate 60 Pulse Rate [Apical] Respiratory Rate 18 18 Blood Pressure 132/61 Blood Pressure [Left Arm] O2 Sat by Pulse Oximetry 93 L Oxygen Delivery Method Oxygen Flow Rate FIO2% 07/31/22 13:06 07/31/22 13:00 07/31/22 13:00 Temperature Pulse Rate 54 L Pulse Rate [Apical] Respiratory Rate 18 17 Blood Pressure 146/68 Blood Pressure [Left Arm] O2 Sat by Pulse Oximetry 100 Oxygen Delivery Method Oxygen Flow Rate FIO2% 07/31/22 13:36 07/31/22 14:00 07/31/22 14:00 Temperature Pulse Rate 57 L Pulse Rate [Apical] Respiratory Rate 14 20 Blood Pressure 104/58 Blood Pressure [Left Arm] O2 Sat by Pulse Oximetry 93 L Oxygen Delivery Method Oxygen Flow Rate FIO2% 07/31/22 15:00 07/31/22 15:00 07/31/22 15:00 Temperature Pulse Rate 54 L Pulse Rate [Apical] Respiratory Rate 14 Blood Pressure 86/50 Blood Pressure [Left Arm] O2 Sat by Pulse Oximetry 89 L Oxygen Delivery Method Oxygen Flow Rate FIO2% 07/31/22 15:03 07/31/22 15:03 07/31/22 15:30 Temperature Pulse Rate 66 Pulse Rate [Apical] Respiratory Rate 12 14 Blood Pressure 95/52 Blood Pressure [Left Arm] O2 Sat by Pulse Oximetry 97 Oxygen Delivery Method Oxygen Flow Rate FIO2% 07/31/22 15:39 07/31/22 15:39 07/31/22 16:00 Temperature Pulse Rate 52 L Pulse Rate [Apical] Respiratory Rate Blood Pressure 100/54 105/50 Blood Pressure [Left Arm] O2 Sat by Pulse Oximetry 93 L Oxygen Delivery Method Oxygen Flow Rate FIO2% 07/31/22 16:00 07/31/22 17:00 07/31/22 17:00 Temperature Pulse Rate 56 L 53 L Pulse Rate [Apical] Respiratory Rate Blood Pressure 92/54 Blood Pressure [Left Arm] O2 Sat by Pulse Oximetry 89 L 100 Oxygen Delivery Method Oxygen Flow Rate FIO2% 07/31/22 18:00 07/31/22 18:00 07/31/22 19:00 Temperature Pulse Rate 56 L Pulse Rate [Apical] Respiratory Rate Blood Pressure 86/51 Blood Pressure [Left Arm] O2 Sat by Pulse Oximetry Oxygen Delivery Method Nasal Cannula Oxygen Flow Rate 2 FIO2% 07/31/22 19:00 07/31/22 19:00 07/31/22 20:00 Temperature Pulse Rate 57 L Pulse Rate [Apical] Respiratory Rate 10 L Blood Pressure 99/61 98/55 Blood Pressure [Left Arm] O2 Sat by Pulse Oximetry 97 Oxygen Delivery Method Oxygen Flow Rate FIO2% 07/31/22 20:00 07/31/22 23:14 07/31/22 21:00 Temperature Pulse Rate 61 60 Pulse Rate [Apical] Respiratory Rate 11 L 14 12 Blood Pressure Blood Pressure [Left Arm] O2 Sat by Pulse Oximetry 96 96 Oxygen Delivery Method Oxygen Flow Rate FIO2% 07/31/22 21:00 07/31/22 22:00 07/31/22 22:43 Temperature 98.3 F Pulse Rate 68 71 Pulse Rate [Apical] Respiratory Rate 18 24 Blood Pressure 101/65 Blood Pressure [Left Arm] O2 Sat by Pulse Oximetry 94 L 97 Oxygen Delivery Method Oxygen Flow Rate FIO2% 07/31/22 22:43 07/31/22 23:00 07/31/22 23:00 Temperature Pulse Rate 63 Pulse Rate [Apical] Respiratory Rate 12 Blood Pressure 136/65 122/58 Blood Pressure [Left Arm] O2 Sat by Pulse Oximetry 95 Oxygen Delivery Method Oxygen Flow Rate FIO2% 07/31/22 23:44 08/01/22 00:00 08/01/22 00:00 Temperature Pulse Rate 57 L Pulse Rate [Apical] Respiratory Rate 10 L 10 L Blood Pressure 112/55 Blood Pressure [Left Arm] O2 Sat by Pulse Oximetry 90 L Oxygen Delivery Method Oxygen Flow Rate FIO2% 07/31/22 21:13 07/31/22 21:13 08/01/22 01:00 Temperature Pulse Rate 69 54 L Pulse Rate [Apical] Respiratory Rate 14 Blood Pressure Blood Pressure [Left Arm] O2 Sat by Pulse Oximetry 95 98 Oxygen Delivery Method Nasal Cannula Oxygen Flow Rate 2 FIO2% 28 08/01/22 01:00 08/01/22 02:02 08/01/22 02:00 Temperature Pulse Rate Pulse Rate [Apical] Respiratory Rate 11 L Blood Pressure 114/56 114/56 Blood Pressure [Left Arm] O2 Sat by Pulse Oximetry Oxygen Delivery Method Oxygen Flow Rate FIO2% 08/01/22 02:00 08/01/22 03:00 08/01/22 03:00 Temperature Pulse Rate 62 58 L Pulse Rate [Apical] Respiratory Rate 12 10 L Blood Pressure 103/53 Blood Pressure [Left Arm] O2 Sat by Pulse Oximetry 73 L 93 L Oxygen Delivery Method Oxygen Flow Rate FIO2% 08/01/22 04:00 08/01/22 04:00 08/01/22 02:32 Temperature 97.5 F L Pulse Rate 64 Pulse Rate [Apical] Respiratory Rate 8 L 9 L Blood Pressure 105/58 Blood Pressure [Left Arm] O2 Sat by Pulse Oximetry 96 Oxygen Delivery Method Oxygen Flow Rate FIO2% 08/01/22 05:00 08/01/22 05:00 08/01/22 06:00 Temperature Pulse Rate 57 L Pulse Rate [Apical] Respiratory Rate 50 H Blood Pressure 109/54 105/55 Blood Pressure [Left Arm] O2 Sat by Pulse Oximetry 93 L Oxygen Delivery Method Oxygen Flow Rate FIO2% 08/01/22 06:00 08/01/22 08:12 08/01/22 08:12 Temperature Pulse Rate 58 L 73 Pulse Rate [Apical] Respiratory Rate 69 H Blood Pressure Blood Pressure [Left Arm] O2 Sat by Pulse Oximetry 86 L 95 Oxygen Delivery Method Nasal Cannula Oxygen Flow Rate 2 FIO2% 08/01/22 07:00 08/01/22 07:00 08/01/22 08:00 Temperature Pulse Rate 65 Pulse Rate [Apical] Respiratory Rate 18 Blood Pressure 112/57 103/58 Blood Pressure [Left Arm] O2 Sat by Pulse Oximetry 93 L Oxygen Delivery Method Oxygen Flow Rate FIO2% 08/01/22 08:00 08/01/22 09:56 08/01/22 07:00 Temperature Pulse Rate 62 Pulse Rate [Apical] Respiratory Rate 17 18 Blood Pressure Blood Pressure [Left Arm] O2 Sat by Pulse Oximetry 89 L Oxygen Delivery Method Nasal Cannula Oxygen Flow Rate 2 FIO2% 08/01/22 09:01 08/01/22 09:01 08/01/22 10:00 Temperature Pulse Rate 72 Pulse Rate [Apical] Respiratory Rate 18 Blood Pressure 133/60 142/76 Blood Pressure [Left Arm] O2 Sat by Pulse Oximetry 96 Oxygen Delivery Method Oxygen Flow Rate FIO2% 08/01/22 10:00 08/01/22 10:26 08/01/22 12:04 Temperature Pulse Rate 74 Pulse Rate [Apical] Respiratory Rate 19 18 18 Blood Pressure Blood Pressure [Left Arm] O2 Sat by Pulse Oximetry 94 L Oxygen Delivery Method Oxygen Flow Rate FIO2% 08/01/22 15:08 08/01/22 12:34 08/01/22 15:38 Temperature Pulse Rate Pulse Rate [Apical] Respiratory Rate 18 18 17 Blood Pressure Blood Pressure [Left Arm] O2 Sat by Pulse Oximetry Oxygen Delivery Method Oxygen Flow Rate FIO2% 08/01/22 12:00 08/01/22 14:00 08/01/22 15:10 Temperature Pulse Rate 61 71 71 Pulse Rate [Apical] Respiratory Rate 18 18 20 Blood Pressure Blood Pressure [Left Arm] O2 Sat by Pulse Oximetry 90 L 96 96 Oxygen Delivery Method Oxygen Flow Rate FIO2% 08/01/22 15:10 08/01/22 16:00 08/01/22 16:00 Temperature Pulse Rate 59 L Pulse Rate [Apical] Respiratory Rate 15 Blood Pressure 132/60 142/65 Blood Pressure [Left Arm] O2 Sat by Pulse Oximetry 98 Oxygen Delivery Method Oxygen Flow Rate FIO2% 08/01/22 18:00 08/01/22 19:00 08/01/22 19:00 Temperature Pulse Rate 64 57 L Pulse Rate [Apical] Respiratory Rate 14 15 Blood Pressure 135/61 147/65 Blood Pressure [Left Arm] O2 Sat by Pulse Oximetry 97 90 L Oxygen Delivery Method Nasal Cannula Nasal Cannula Nasal Cannula Oxygen Flow Rate 2 2 2 FIO2% 08/01/22 19:51 08/01/22 20:21 08/01/22 21:00 Temperature Pulse Rate 88 Pulse Rate [Apical] Respiratory Rate 18 18 18 Blood Pressure 145/67 Blood Pressure [Left Arm] O2 Sat by Pulse Oximetry 95 Oxygen Delivery Method Nasal Cannula Oxygen Flow Rate 2 FIO2% 08/01/22 22:00 08/01/22 22:51 08/01/22 23:40 Temperature 98.0 F Pulse Rate 68 Pulse Rate [Apical] Respiratory Rate 22 18 Blood Pressure 107/50 Blood Pressure [Left Arm] O2 Sat by Pulse Oximetry 90 L Oxygen Delivery Method Nasal Cannula Oxy Mask Oxygen Flow Rate 2 4 FIO2% 36 08/01/22 20:35 08/01/22 20:35 08/01/22 23:00 Temperature Pulse Rate 66 60 Pulse Rate [Apical] Respiratory Rate 18 Blood Pressure 98/56 Blood Pressure [Left Arm] O2 Sat by Pulse Oximetry 95 75 L Oxygen Delivery Method Nasal Cannula Oxygen Flow Rate 4 FIO2% 36 08/02/22 00:00 08/02/22 01:00 08/02/22 02:00 Temperature Pulse Rate 60 67 59 L Pulse Rate [Apical] Respiratory Rate 20 24 22 Blood Pressure 123/58 124/59 116/55 Blood Pressure [Left Arm] O2 Sat by Pulse Oximetry 96 87 L 98 Oxygen Delivery Method Oxygen Flow Rate FIO2% 08/02/22 03:00 08/02/22 04:00 08/01/22 23:21 Temperature 97.7 F Pulse Rate 57 L 55 L Pulse Rate [Apical] Respiratory Rate 22 22 18 Blood Pressure 107/55 116/56 Blood Pressure [Left Arm] O2 Sat by Pulse Oximetry 94 L 96 Oxygen Delivery Method Oxy Mask Oxygen Flow Rate 4 FIO2% 08/02/22 05:00 08/02/22 06:00 08/02/22 07:00 Temperature Pulse Rate 62 56 L Pulse Rate [Apical] Respiratory Rate 24 20 Blood Pressure 140/62 161/72 Blood Pressure [Left Arm] O2 Sat by Pulse Oximetry 99 100 Oxygen Delivery Method Nasal Cannula Oxygen Flow Rate 2 FIO2% 08/02/22 07:00 08/02/22 08:00 08/02/22 08:45 Temperature 98.3 F Pulse Rate 58 L 66 Pulse Rate [Apical] Respiratory Rate 21 18 Blood Pressure 146/73 136/63 Blood Pressure [Left Arm] O2 Sat by Pulse Oximetry 100 97 Oxygen Delivery Method Oxy Mask Oxygen Flow Rate 4 FIO2% 37 08/02/22 08:45 08/02/22 09:00 08/02/22 10:00 Temperature Pulse Rate 71 93 H Pulse Rate [Apical] Respiratory Rate 18 19 Blood Pressure 108/53 162/67 Blood Pressure [Left Arm] O2 Sat by Pulse Oximetry 99 97 89 L Oxygen Delivery Method Oxygen Flow Rate FIO2% Labs: Laboratory Last Values WBC 7.4 X10^3/uL (3.6-10.0) 08/02/22 04:30 RBC 3.04 X10^6/uL (3.5-5.4) L 08/02/22 04:30 Hgb 8.7 g/dL (12.0-16.0) L 08/02/22 04:30 Hct 27.0 % (36.0-47.0) L 08/02/22 04:30 MCV 88.7 fL (80.0-100.0) 08/02/22 04:30 MCH 28.7 pg (27.0-34.0) 08/02/22 04:30 MCHC 32.4 g/dL (33.0-35.0) L 08/02/22 04:30 RDW 14.9 % (11.6-16.5) 08/02/22 04:30 Plt Count 150 X10^3/uL (150.0-450.0) 08/02/22 04:30 MPV 11.7 fL (7.4-11.0) H 08/02/22 04:30 Neut % (Auto) 57.9 % (42.0-75.0) 08/02/22 04:30 Lymph % (Auto) 29.1 % (21.0-51.0) 08/02/22 04:30 Dickson % (Auto) 6.4 % (0.0-13.0) 08/02/22 04:30 Eos % (Auto) 5.8 % (0.9-2.9) H 08/02/22 04:30 Baso % (Auto) 0.8 % (0.2-1.0) 08/02/22 04:30 Neut # (Auto) 4.3 x10^3/uL (2.2-4.8) 08/02/22 04:30 Lymph # (Auto) 2.1 X10^3/uL (1.3-2.9) 08/02/22 04:30 Dickson # (Auto) 0.5 x10^3/uL (0.3-0.8) 08/02/22 04:30 Eos # (Auto) 0.4 x10^3/uL (0.0-0.2) H 08/02/22 04:30 Baso # (Auto) 0.1 X10^3/uL (0.0-0.1) 08/02/22 04:30 Absolute Nucleated RBC 0.0 /100WBC 08/02/22 04:30 PT 13.6 SECONDS (11.8-14.3) 07/24/22 17:45 INR Target Range - 07/24/22 17:45 INR 1.07 (0.8-1.3) 07/24/22 17:45 APTT 225.4 SECONDS (22.9-36.5) H* 08/01/22 09:45 PTT Comment - 08/01/22 09:45 Fibrinogen 336 mg/dL (239-489) 07/29/22 15:38 Sodium 141 mmol/L (136-145) 08/02/22 04:30 Corrected Sodium 142 mmol/L (136-145) 08/02/22 04:30 Potassium 4.0 mmol/L (3.5-5.1) 08/02/22 04:30 Chloride 102 mmol/L (98-107) 08/02/22 04:30 Carbon Dioxide 34.4 mmol/L (21-32) H 08/02/22 04:30 BUN 11 mg/dL (7-18) 08/02/22 04:30 Creatinine 0.82 mg/dL (0.55-1.02) 08/02/22 04:30 Est GFR (MDRD) Af Amer > 60 (>60) 08/02/22 04:30 Est GFR (MDRD) Non-Af > 60 (>60) 08/02/22 04:30 Glucose 147 mg/dL (65-99) H 08/02/22 04:30 POC Glucose (mg/dL) 134 mg/dL (65-99) H 08/02/22 05:13 Calcium 8.0 mg/dL (8.5-10.1) L 08/02/22 04:30 Corrected Calcium 9.0 mg/dL (8.5-10.1) 08/02/22 04:30 Total Bilirubin 0.50 mg/dL (0.2-1.0) 08/02/22 04:30 AST 18 Units/L (15-37) 08/02/22 04:30 ALT 15 Units/L (12-78) 08/02/22 04:30 Alkaline Phosphatase 82 Units/L (46-116) 08/02/22 04:30 Total Protein 6.4 g/dL (6.4-8.2) 08/02/22 04:30 Albumin 2.7 g/dL (3.4-5.0) L 08/02/22 04:30 Globulin 3.7 g/dL (2.5-4.5) 08/02/22 04:30 Albumin/Globulin Ratio 0.7 Ratio (1.1-2.1) L 08/02/22 04:30 Stool Description 100 g. brown/soft 07/28/22 02:40 Stl Occult Blood (IFOB) Positive (NEGATIVE) A 07/28/22 02:40 Reason For Visit: ISCHEMIA LEFT LEG Discharge Date Discharge Date: 08/02/22 Discharge Diagnosis All Active Problems (Updated 07/24/22 @ 14:08 by Dexter Durand) Congestive heart failure (Acute) GERD (gastroesophageal reflux disease) (Acute) Hypertension (Acute) Critical limb ischemia of left lower extremity (Acute) Vein compression (Acute) PVD (peripheral vascular disease) (Acute) HLD (hyperlipidemia) (Acute) NSTEMI (non-ST elevated myocardial infarction) (Acute) Elevated troponin (Acute) COPD (chronic obstructive pulmonary disease) (Acute) Diabetes (Acute) Hypotension (Acute) Shortness of breath (Acute) Plan of Treatment: Continue with present treatment and follow up plan. Pt is to keep follow up appointment as instructed and take medications as ordered. Discharge Medications Discharge Medications: clonazepam [From Klonopin] Allergy (Verified 07/30/22 11:31) codeine Allergy (Verified 01/08/22 09:58) morphine Allergy (Verified 07/30/22 11:31) Sulfa (Sulfonamide Antibiotics) [SULFA] Allergy (Verified 01/08/22 09:58) CONTINUE taking the following medications clopidogrel 75 mg tablet 75 mg PO QDAY 07/24/22 [History] insulin regular hum U-500 conc 500 unit/mL(3 mL) subcut pen (Humulin R U-500 (Conc) Insulin Kwikpen) 1 unit subcut PRN PRN Hyperglycemia 07/24/22 [History] potassium chloride 20 mEq tablet,extended release(part/cryst) 20 meq PO QDAY 07/24/22 [History] New Prescriptions oxycodone-acetaminophen 5 mg-325 mg tablet (Percocet) 1 tab PO Q6H PRN #30 tabs 08/02/22 [Rx] rivaroxaban 15 mg (42)-20 mg (9) tablets in a starter pack (Xarelto DVT-PE Treatment 30-Day Starter) See Rx Instructions PO .COMPLEX #51 ea 08/02/22 [Rx] Discharge Disposition Assessment: see hospital course abov Discharge Plan Discharge Plan Hospital Course: This is a 61 year old female who several weeks ago underwent atherectomy and Drug coated balloon angioplasty of the left superficial femoral artery followed by stenting of a compressed left iliac vein. The patient had hypertension post- procedure at that time with rise in troponin and was transferred to [place] where she underwent a cardiac catheterization which was negative. She has a history of a factor II deficiency and had been on blood thinners. At the time she was in [place] they stopped the blood thinner and kept her on Plavix only, unbeknownst to me. She did not come see me for three months and presented with a cool swollen left leg with blue toes of about 4 weeks duration by her history . She was admitted and placed on a Heparin drip. Ultrasound of the vessels showed DVT of the left popliteal and superficial femoral veins .CT angiogram confirmed re- occclusion of the right superficial femoral artery. On July 25 she was taken to the operating Suite with percutaneous placement of an EKOS catheter by the left popliteal vein and overnight had EKOS TPA thrombolysis. The next day she was taken back to the operating suite and repeat venogram still showed some clot although the left leg was recanalized. And that time she underwent Angioniki and Clot Jonnathan percutaneous thrombectomy and balloon angioplasty of the veins . She was maintained on Heparin drip over the weekend. On July 30 she was taken back to the operating Suite where she underwent atherectomy and Juan coated balloon angioplasty of the recurrent occlusion of the right superficial femoral artery . She was maintained on Heparin drip and on the morning of August 01 had increasing pain of the left leg and swelling. Exam showed ecchymosis to the left popliteal area where the popliteal vein had been approached several days prior. Distl pulses were intact arteries with biphasic flow at the ankle of both the left dorsalis pedis and posterior tibial arteries . Repeat venous Doppler showed no DVT. She will be discharged with a walker to aid with walking. Continue usual home medications with the addition of Xarelto 15 mg BID x 3 weeks and then change to 20 mg a day. Also remain on Plavix and I will see in ther he office in one week. She likely she will lose the skin of the left toes but I think they will be viable . Patient Disposition: 01 HOME, SELF-CARE Condition: Stable Health Concerns: Post Hospitalization: new medications and changes needed to prevent readmission or further decline. Pt educated and given instructions on all concerns. Care Plan Goals: Improve walking Plan of Treatment: Continue with present treatment and follow up plan. Pt is to keep follow up appointment as instructed and take medications as ordered. Assessment: see hospital course [facility] Prescription drug monitoring program results: PDMP reviewed and no concerns identified Prescriptions: New Xarelto DVT-PE Treat 30d Start 15 mg (42)- 20 mg (9) tablets,dose pack See Rx Instructions .ROUTE .COMPLEX Qty: 51 0RF Rx Instructions: take one-15 mg tablet twice daily for 21 days, then one-20 mg tablet once daily; must take with meal/food oxycodone-acetaminophen [Percocet] 5-325 mg tablet 1 tab PO Q6H MDD 4 PRNQty: 30 0RF Continued furosemide 40 mg tablet 40 mg PO DAILY PRN (Reason: Edema) atorvastatin 20 mg tablet 20 mg PO DAILY lisinopril 20 mg tablet 20 mg PO DAILY atenolol 25 mg tablet 25 mg PO DAILY omeprazole 40 mg capsule,delayed release(DR/EC) 40 mg PO DAILY exemestane 25 mg tablet 25 mg PO DAILY nitroglycerin [Nitrostat] 0.4 mg Tablet, Sublingual 0.4 mg sublingual DIRECTED PRN (Reason: Chest Pain) nystatin [Nystop] 100,000 unit/gram powder 100,000 unit TOPICAL BID PRN (Reason: Rash) Label Comments: under bilat breasts pregabalin [Lyrica] 150 mg Capsule 150 mg PO TID fenofibrate nanocrystallized 145 mg tablet 145 mg PO DAILY cholecalciferol (vitamin D3) 50 mcg (2,000 unit) Tablet 50 mcg PO DAILY Trulicity 1.5 mg/0.5 mL pen injector 1.5 mg SUBCUT WEEKLY albuterol 90 mcg/actuation Aerosol 108 mcg INHALATION QID ergocalciferol (vitamin D2) 1,250 mcg (50,000 unit) Capsule 1.25 mcg PO WEEKLY sertraline 50 mg Tablet 50 mg PO DAILY budesonide-formoterol [Symbicort] 160-4.5 mcg/actuation Hfa Aerosol Inhaler 2 inh INHALATION DAILY aspirin 81 mg Capsule 81 mg PO DAILY clopidogrel 75 mg tablet 75 mg PO QDAY potassium chloride 20 mEq tablet,ER particles/crystals 20 meq PO QDAY Humulin R U-500 (Conc) Kwikpen 500 unit/mL (3 mL) insulin pen 1 unit subcut PRN PRN (Reason: Hyperglycemia) Label Comments: [NO ORIGINAL SIG] Rx Instructions: INJECT 65 UNITS SQ IN THE MORNING AND 55 UNITS IN THE EVENING Follow ups/Referrals Follow ups/Referrals: Yasmeen Villalpando [Primary Care Provider] - 08/09/22 2:00 pm Dexter Durand [STAFF PHYSICIAN] - 08/15/22 10:30 am Instructions Instructions: Diabetes Mellitus and Foot Care, Heart Failure, Self Care, [id number], Diabetes Mellitus and Sick Day Management, Chronic Obstructive Pulmonary Disease, [id number], Atherosclerosis, Peripheral Vascular Disease, [id number], Managing Your Hypertension Stand Alone Forms: Excuse From Work or School, Precautions for COVID19, [facility], Patient Portal, Social Distancing
[2022-08-02 11:08] VITALS: BP 123/60
== END 2022-08-02 12:45 | disposition home or self-care (01) | DRG 272 ==
LOC: MED/SURG 12:38 → ICU 17:32
PROVIDERS: ADMIT Surgery; ATTEND Surgery
DX: J44.9 Chronic obstructive pulmonary disease, unspecified; I82.432 Acute embolism and thrombosis of left popliteal vein; I70.222 Atherosclerosis of native arteries of extremities with rest pain, left leg; E11.65 Type 2 diabetes mellitus with hyperglycemia; E78.2 Mixed hyperlipidemia; I50.9 Heart failure, unspecified; I82.412 Acute embolism and thrombosis of left femoral vein; K21.9 Gastro-esophageal reflux disease without esophagitis; I11.0 Hypertensive heart disease with heart failure

== ENCOUNTER 2022-10-02 10:05 | Inpatient (IN) ==
[2022-10-02] MEDS ORDERED: KETAMINE HCL ONE (14:16)
[2022-10-02] MEDS ORDERED: XYLOCAINE 2 % (PLAIN) ONE (14:16)
[2022-10-02] MEDS ORDERED: PRECEDEX INJ VIAL IVP ONE (14:16)
[2022-10-02] MEDS ORDERED: DUONEB 0.5 MG/3 MG (3 mL) NEB PRN (16:37)
[2022-10-02] MEDS ORDERED: HEPARIN SODIUM IN D5W 25,000 UNITS/500 ML BAG IV PRN (17:37)
[2022-10-02] MEDS: LR 1,000 ML IV 1,000 ML IV SCH (18:02)
[2022-10-02 18:09] LABS: BASOPHILS # (AUTO) 0.1 X10^3/uL (0.0-0.1); EOSINOPHILS # (AUTO) 0.3 x10^3/uL (0.0-0.2); EOSINOPHILS % (AUTO) 2.8 % (0.9-2.9); HEMATOCRIT 37.3 % (36.0-47.0); LYMPHOCYTES # (AUTO) 3.1 X10^3/uL (1.3-2.9); LYMPHOCYTES % (AUTO) 31.3 % (21.0-51.0); MEAN CORPUSCULAR HEMOGLOBIN 28.5 pg (27.0-34.0); MEAN CORPUSCULAR HGB CONC 32.2 g/dL (33.0-35.0); MEAN CORPUSCULAR VOLUME 88.6 fL (80.0-100.0); MEAN PLATELET VOLUME 10.9 fL (7.4-11.0); MONOCYTES # (AUTO) 0.6 x10^3/uL (0.3-0.8); MONOCYTES % (AUTO) 5.6 % (0.0-13.0); NEUTROPHILS # (AUTO) 5.9 x10^3/uL (2.2-4.8); NEUTROPHILS % (AUTO) 59.3 % (42.0-75.0); RED BLOOD COUNT 4.21 X10^6/uL (3.5-5.4); RED CELL DISTRIBUTION WIDTH 15.2 % (11.6-16.5)
[2022-10-02 18:13] LABS: INR 1.15 (0.8-1.3)
[2022-10-02] MEDS: PERCOCET TAB 5/325 MG PO PRN (18:13)
[2022-10-02 18:18] LABS: ALBUMIN 3.1 g/dL (3.4-5.0); CALCIUM 8.3 mg/dL (8.5-10.1); CARBON DIOXIDE 28.7 mmol/L (21-32); CREATININE 1.36 mg/dL (0.55-1.02); TOTAL PROTEIN 6.9 g/dL (6.4-8.2)
[2022-10-02] MEDS ORDERED: HEPARIN SODIUM INJ 5000 UNITS IVP ONE (18:33)
[2022-10-02] MEDS ORDERED: PULMICORT NEB TX 0.5 MG NEB ONE (19:05)
[2022-10-02] MEDS: PULMICORT NEB TX 0.5 MG NEB SCH (20:00)
[2022-10-02] MEDS: NovoLIN R (or HumuLIN R) SC PRN (21:04)
[2022-10-02] MEDS: TENORMIN PO SCH (21:12)
--- NOTE | 2022-10-02 23:25 | DR.H&P ---
H&P History & Physical for Day of: H&P Date: 10/02/22 Chief Complaint Chief Complaint: Acute onset left leg pain. Allergies Allergies Allergy/AdvReac Type Severity Reaction Status Date / Time clonazepam [From Klonopin] Allergy Verified 07/30/22 11:31 codeine Allergy Verified 01/08/22 09:58 morphine Allergy Verified 07/30/22 11:31 Sulfa (Sulfonamide Allergy Verified 01/08/22 09:58 Antibiotics) [SULFA] History of Present Illness History of Present Illness: 89 year old female presented last week to [facility] in [place], [place] with acute onset of left leg pain which has not been relieved . Clinically consistent with ischemia and had a CT angiogram showing occlusion of the left superficial femoral artery with reconstitution the popliteal artery and good run off. The patient has a history of significant tobacco abuse, coronary artery disease, history of right breast cancer treated with chemotherapy and radiation .In January of this year she underwent atherectomy and drug coated balloon angioplasty of the left superf icial femoral artery and in March of this year underwent stenting of the left iliac vein complicated by elevated troponins and transferred to [facility] for cardiac catherization which was normal. Seen in early August with pain in the left leg and had left popliteal deep Venous Thrombosis. At that time she was not taking her Xarelto. The DVT treated with EKOS thrombolysis . Also at that time had thrombosis of the left superficial femoral artery requiring Angiojet thrombectomy and drug coated balloon angioplasty. She says that she has not been smoking and has been taking her Xarelto and Plavix. Past Medical History Past Medical History: Diabetes, Dyslipidemia, Hypertension and LA (reports LA ) Past Surgical History Surgical History: Cholecystectomy, DRILL INSTRUCTOR Surgery, Hysterectomy, Joint Replacement and Ortho Surgery Additional Surgical History: Cholecystecomy, hysterectomy, back surgery, factor II deficiency Family History Family Medical History: Cancer Social History Does patient currently use any type of tobacco product: Yes Have you used tobacco products in the last 12 months: Yes Type of Tobacco Use: Cigarettes Does any household member use tobacco: Yes Alcohol Use: None Drug Use: None Medications Home Medications: clonazepam [From Klonopin] Allergy (Verified 07/30/22 11:31) codeine Allergy (Verified 01/08/22 09:58) morphine Allergy (Verified 07/30/22 11:31) Sulfa (Sulfonamide Antibiotics) [SULFA] Allergy (Verified 01/08/22 09:58) CONTINUE taking the following medications albuterol sulfate 90 mcg/actuation aerosol inhaler 2 inh inhalation QID 10/02/22 [History] atenolol 25 mg tablet 1 tab PO BID 10/02/22 [History] atorvastatin 20 mg tablet 1 tab PO QDAY 10/02/22 [History] budesonide-formoterol HFA 160 mcg-4.5 mcg/actuation aerosol inhaler (Symbicort) 2 inh inhalation Q12H 10/02/22 [History] clopidogrel 75 mg tablet 1 tab PO QDAY 10/02/22 [History] dulaglutide 3 mg/0.5 mL subcutaneous pen injector (Trulicity) 3 mg subcut WEEKLY 10/02/22 [History] fenofibrate nanocrystallized 145 mg tablet 1 tab PO QDAY 10/02/22 [History] furosemide 40 mg tablet 1 tab PO QDAY 10/02/22 [History] lisinopril 20 mg tablet 1 tab PO HS 10/02/22 [History] omeprazole 40 mg capsule,delayed release 1 cap PO DAILY 10/02/22 [History] oxycodone-acetaminophen 5 mg-325 mg tablet 1 tab PO Q4-6H PRN Pain 10/02/22 [History] potassium chloride 20 mEq tablet,extended release(part/cryst) 1 tab PO DAILY 10/02/22 [History] pregabalin 150 mg capsule 1 cap PO BID 10/02/22 [History] rivaroxaban 20 mg tablet (Xarelto) 1 tab PO DAILY 10/02/22 [History] sertraline 100 mg tablet 1 tab PO QDAY 10/02/22 [History] Labs Result Diagrams: 10/02/22 17:57 10/02/22 17:57 Labs: Laboratory WBC 10.0 X10^3/uL (3.6-10.0) 10/02/22 17:57 RBC 4.21 X10^6/uL (3.5-5.4) 10/02/22 17:57 Hgb 12.0 g/dL (12.0-16.0) 10/02/22 17:57 Hct 37.3 % (36.0-47.0) 10/02/22 17:57 MCV 88.6 fL (80.0-100.0) 10/02/22 17:57 MCH 28.5 pg (27.0-34.0) 10/02/22 17:57 MCHC 32.2 g/dL (33.0-35.0) L 10/02/22 17:57 RDW 15.2 % (11.6-16.5) 10/02/22 17:57 Plt Count 172 X10^3/uL (150.0-450.0) 10/02/22 17:57 MPV 10.9 fL (7.4-11.0) 10/02/22 17:57 Neut % (Auto) 59.3 % (42.0-75.0) 10/02/22 17:57 Lymph % (Auto) 31.3 % (21.0-51.0) 10/02/22 17:57 Charlton % (Auto) 5.6 % (0.0-13.0) 10/02/22 17:57 Eos % (Auto) 2.8 % (0.9-2.9) 10/02/22 17:57 Baso % (Auto) 1.0 % (0.2-1.0) 10/02/22 17:57 Neut # (Auto) 5.9 x10^3/uL (2.2-4.8) H 10/02/22 17:57 Lymph # (Auto) 3.1 X10^3/uL (1.3-2.9) H 10/02/22 17:57 Charlton # (Auto) 0.6 x10^3/uL (0.3-0.8) 10/02/22 17:57 Eos # (Auto) 0.3 x10^3/uL (0.0-0.2) H 10/02/22 17:57 Baso # (Auto) 0.1 X10^3/uL (0.0-0.1) 10/02/22 17:57 Absolute Nucleated RBC 0.1 /100WBC 10/02/22 17:57 PT 14.4 SECONDS (11.8-14.3) 10/02/22 17:57 INR Target Range - 10/02/22 17:57 INR 1.15 (0.8-1.3) 10/02/22 17:57 APTT 28.0 SECONDS (22.9-36.5) 10/02/22 17:57 PTT Comment - 10/02/22 17:57 Sodium 135 mmol/L (136-145) L 10/02/22 17:57 Corrected Sodium 136 mmol/L (136-145) 10/02/22 17:57 Potassium 4.1 mmol/L (3.5-5.1) 10/02/22 17:57 Chloride 100 mmol/L (98-107) 10/02/22 17:57 Carbon Dioxide 28.7 mmol/L (21-32) 10/02/22 17:57 BUN 18 mg/dL (7-18) 10/02/22 17:57 Creatinine 1.36 mg/dL (0.55-1.02) H 10/02/22 17:57 Est GFR (MDRD) Af Amer 51 (>60) L 10/02/22 17:57 Est GFR (MDRD) Non-Af 42 (>60) L 10/02/22 17:57 Glucose 146 mg/dL (65-99) H 10/02/22 17:57 POC Glucose (mg/dL) 252 mg/dL (65-99) H 10/02/22 20:15 Calcium 8.3 mg/dL (8.5-10.1) L 10/02/22 17:57 Corrected Calcium 9.0 mg/dL (8.5-10.1) 10/02/22 17:57 Total Bilirubin 0.30 mg/dL (0.2-1.0) 10/02/22 17:57 AST 64 Units/L (15-37) H 10/02/22 17:57 ALT 86 Units/L (12-78) H 10/02/22 17:57 Alkaline Phosphatase 140 Units/L (46-116) H 10/02/22 17:57 Total Protein 6.9 g/dL (6.4-8.2) 10/02/22 17:57 Albumin 3.1 g/dL (3.4-5.0) L 10/02/22 17:57 Globulin 3.8 g/dL (2.5-4.5) 10/02/22 17:57 Albumin/Globulin Ratio 0.8 Ratio (1.1-2.1) L 10/02/22 17:57 Review of Systems Constitutional: See HPI Eyes: No Symptoms Reported ENT: No Symptoms Reported Respiratory: No Symptoms Reported Cardiovascular: See HPI Gastrointestinal: No Symptoms Reported Genitourinary: No Symptoms Reported Musculoskeletal: No Symptoms Reported Skin: No Symptoms Reported Neurological: No Symptoms Reported Physical Exam Vital Signs: Temperature 98.3 F Pulse Rate 65 Respiratory Rate 16 Blood Pressure [Left Arm] 112/61 Blood Pressure 142/65 O2 Sat by Pulse Oximetry 100 Oriented: Normal, Time, Person and Place Eyes: Normal Ear: Normal Nose: Normal Throat: Normal Respiratory: Clear Throughout Cardiovascular: Normal and Other (Femoral pulses bilaterally. Right foot is warm with palpable distal pulses. Left foot is cool with absent dorsalis pedis and post tibial pulse ) : Normal Auscultation: Bowel Sounds: Normal Palpation: Normal Tenderness: Normal Skin: Normal Musculoskeletal: Normal Psychiatric: Normal Mood Description: Calm Affect: Normal Speech Pattern: Clear Assessment/Plan (1) Critical limb ischemia of left lower extremity: Status: Acute Plan: Admit, heparin drip, to OR in AM for EKOS thrombolysis left leg and will take back to OR for definitive left LE arterial intervention. (2) Hypertension: Status: Acute Plan: home medications (3) Vein compression: Status: Acute Plan: stable (4) COPD (chronic obstructive pulmonary disease): Qualifiers: COPD type: unspecified COPD Qualified Code(s): J44.9 - Chronic obstructive pulmonary disease, unspecified Status: Acute Plan: home medications (5) Diabetes: Qualifiers: Diabetes mellitus type: type 2 Diabetes mellitus vermin exterminator insulin use: unspecified vermin exterminator insulin use status Diabetes mellitus complication status: without complication Qualified Code(s): E11.9 - Type 2 diabetes mellitus without complications Status: Acute Plan: sliding scale insulin (6) History of breast cancer: Status: Acute (7) Factor II deficiency: Status: Acute Plan: anticoagulation Review H&P Reviewed: Yes Patient was examined?: Yes
[2022-10-03 06:24] LABS: BASOPHILS # (AUTO) 0.1 X10^3/uL (0.0-0.1); BASOPHILS % (AUTO) 1.2 % (0.2-1.0); EOSINOPHILS # (AUTO) 0.3 x10^3/uL (0.0-0.2); EOSINOPHILS % (AUTO) 3.8 % (0.9-2.9); HEMATOCRIT 33.9 % (36.0-47.0); HEMOGLOBIN 11.1 g/dL (12.0-16.0); LYMPHOCYTES # (AUTO) 2.2 X10^3/uL (1.3-2.9); LYMPHOCYTES % (AUTO) 30.3 % (21.0-51.0); MEAN CORPUSCULAR HEMOGLOBIN 28.7 pg (27.0-34.0); MEAN CORPUSCULAR HGB CONC 32.7 g/dL (33.0-35.0); MEAN CORPUSCULAR VOLUME 87.6 fL (80.0-100.0); MEAN PLATELET VOLUME 10.9 fL (7.4-11.0); MONOCYTES # (AUTO) 0.4 x10^3/uL (0.3-0.8); NEUTROPHILS # (AUTO) 4.4 x10^3/uL (2.2-4.8); NEUTROPHILS % (AUTO) 58.7 % (42.0-75.0); RED BLOOD COUNT 3.87 X10^6/uL (3.5-5.4); WHITE BLOOD COUNT 7.4 X10^3/uL (3.6-10.0)
[2022-10-03 06:38] LABS: ALANINE AMINOTRANSFERASE 64 Units/L (12-78); ALBUMIN 2.7 g/dL (3.4-5.0); ALKALINE PHOSPHATASE 117 Units/L (46-116); ASPARTATE AMINO TRANSFERASE 39 Units/L (15-37); BLOOD UREA NITROGEN 14 mg/dL (7-18); CALCIUM 7.9 mg/dL (8.5-10.1); CARBON DIOXIDE 28.8 mmol/L (21-32); CHLORIDE 104 mmol/L (98-107); COR CA(FOR HYPOALB) 8.9 mg/dL (8.5-10.1); COR NA(FOR HYPERGLY) 141 mmol/L (136-145); CREATININE 1.08 mg/dL (0.55-1.02); SODIUM 138 mmol/L (136-145); TOTAL PROTEIN 5.9 g/dL (6.4-8.2); eGFR NON BLACK RACES 55 (>60)
[2022-10-03] MEDS ORDERED: HEPARIN SODIUM INJ 5000 UNITS IVP ONE (06:49)
[2022-10-03] MEDS: LR 1,000 ML IV 1,000 ML IV SCH ×2 (07:19→17:00)
[2022-10-03] MEDS: K-DUR TAB 20 MEQ PO SCH (08:07)
[2022-10-03] MEDS: LIPITOR TAB 20 MG PO SCH (08:07)
[2022-10-03] MEDS: PROTONIX TAB 40 MG PO SCH (08:08)
[2022-10-03] MEDS: ZESTRIL TAB 20 MG PO SCH (08:08)
[2022-10-03] MEDS: TRICOR TAB 160 MG PO SCH (08:08)
[2022-10-03] MEDS: ZOLOFT PO SCH (08:08)
[2022-10-03] MEDS: TENORMIN PO SCH ×2 (08:08→21:45)
[2022-10-03] MEDS ORDERED: HEPARIN SODIUM IN D5W 75,000 UNITS/1,500 ML BAG ONE (08:25)
[2022-10-03] MEDS ORDERED: MARCAINE 0.5% ONE (08:25)
[2022-10-03] MEDS: MARCAINE 0.5% ONE ×2 (08:26→09:06)
[2022-10-03] MEDS ORDERED: VERSED ONE (08:33)
[2022-10-03] MEDS ORDERED: DIPRIVAN VIAL 20 ML ONE (08:34)
[2022-10-03] MEDS ORDERED: ANCEF VIAL 1 GRAM ONE (08:36)
[2022-10-03] MEDS ORDERED: NS 100 ML IV 100 ML ONE (08:36)
[2022-10-03] MEDS: PULMICORT NEB TX 0.5 MG NEB SCH ×2 (08:40→20:38)
[2022-10-03] MEDS: FENTANYL VIAL INJ 250 mcg ONE ×2 (08:46→10:23)
[2022-10-03] MEDS: KETAMINE HCL ONE ×2 (08:46→10:23)
[2022-10-03] MEDS ORDERED: HEPARIN SODIUM INJ 5000 UNITS ONE (08:58)
[2022-10-03] MEDS: DIPRIVAN VIAL 20 ML ONE ×2 (09:36→10:23)
[2022-10-03] MEDS: PROTAMINE SULFATE 50 MG VIAL ONE ×2 (09:38→10:23)
[2022-10-03] MEDS: ACTIVASE CATHFLO ONE ×2 (09:45→10:23)
[2022-10-03] MEDS: NS 500 ML IV 500 ML IV ONE ×2 (09:50→10:22)
[2022-10-03] MEDS: HEPARIN SODIUM IN D5W 25,000 UNITS/500 ML BAG ONE ×2 (09:50→10:22)
[2022-10-03] MEDS: ACTIVASE CATHFLO 12 MG in NS 250 ML IV 228 ML IV ONE ×2 (09:50→10:24)
[2022-10-03] MEDS: HEPARIN SODIUM IN D5W 25,000 UNITS/500 ML BAG INTRACATH PRN (10:15)
[2022-10-03] MEDS: DILAUDID INJ IVP PRN ×2 (10:41→14:49)
[2022-10-03] MEDS ORDERED: HEPARIN SODIUM IN D5W 25,000 UNITS/500 ML BAG INTRACATH PRN (11:15)
[2022-10-03] MEDS ORDERED: ACTIVASE CATHFLO 12 MG in NS 250 ML IV 228 ML INTRACATH ONE ×4 (11:15)
[2022-10-03] MEDS: NS 500 ML IV 500 ML IV SCH (11:32)
[2022-10-03] MEDS ORDERED: NS 500 ML IV 500 ML IV SCH (12:00)
[2022-10-03] MEDS: PERCOCET TAB 5/325 MG PO PRN ×3 (12:04→22:26)
[2022-10-03 12:11] LABS: BASOPHILS # (AUTO) 0.1 X10^3/uL (0.0-0.1); BASOPHILS % (AUTO) 0.8 % (0.2-1.0); EOSINOPHILS # (AUTO) 0.2 x10^3/uL (0.0-0.2); EOSINOPHILS % (AUTO) 2.5 % (0.9-2.9); HEMATOCRIT 32.6 % (36.0-47.0); HEMOGLOBIN 10.8 g/dL (12.0-16.0); LYMPHOCYTES # (AUTO) 1.8 X10^3/uL (1.3-2.9); LYMPHOCYTES % (AUTO) 19.3 % (21.0-51.0); MEAN CORPUSCULAR HGB CONC 33.1 g/dL (33.0-35.0); MEAN CORPUSCULAR VOLUME 87.8 fL (80.0-100.0); MONOCYTES # (AUTO) 0.4 x10^3/uL (0.3-0.8); MONOCYTES % (AUTO) 4.3 % (0.0-13.0); NEUTROPHILS # (AUTO) 6.7 x10^3/uL (2.2-4.8); NEUTROPHILS % (AUTO) 73.1 % (42.0-75.0); RED BLOOD COUNT 3.71 X10^6/uL (3.5-5.4); RED CELL DISTRIBUTION WIDTH 14.7 % (11.6-16.5); WHITE BLOOD COUNT 9.2 X10^3/uL (3.6-10.0)
--- NOTE | 2022-10-03 12:38 | OR.IMMED ---
IMMEDIATE POST-OP NOTE Immediate Post-Op Note Pre-Op Diagnosis: Thrombosis left SFA with acute limb threatening ischemia Post-Op Diagnosis: same Procedure: Diagnostic aortogram, diagnostic arteriogram left leg, Placement of EKOS catheter across the thrombosed proximal segment of the thrombosed SFA, begins at the takeoff of the left SFA Description of Procedure: see operative summary Surgeon/Warehouse Assistant: Kizzy Estimated Blood Loss: 100 cc Complications: none Progress Notes: Return to ICU for thrombolysis left SFA with TPA, return to OR tomorrow for repeat arteriogram and definitive intervention of the left leg. Final Diagnosis: as above.
[2022-10-03 17:53] LABS: BASOPHILS # (AUTO) 0.1 X10^3/uL (0.0-0.1); EOSINOPHILS # (AUTO) 0.1 x10^3/uL (0.0-0.2); EOSINOPHILS % (AUTO) 1.5 % (0.9-2.9); HEMOGLOBIN 10.9 g/dL (12.0-16.0); LYMPHOCYTES # (AUTO) 1.8 X10^3/uL (1.3-2.9); LYMPHOCYTES % (AUTO) 20.1 % (21.0-51.0); MEAN CORPUSCULAR HEMOGLOBIN 29.1 pg (27.0-34.0); MEAN CORPUSCULAR HGB CONC 32.9 g/dL (33.0-35.0); MEAN CORPUSCULAR VOLUME 88.4 fL (80.0-100.0); MEAN PLATELET VOLUME 10.7 fL (7.4-11.0); MONOCYTES # (AUTO) 0.5 x10^3/uL (0.3-0.8); MONOCYTES % (AUTO) 5.1 % (0.0-13.0); NEUTROPHILS # (AUTO) 6.4 x10^3/uL (2.2-4.8); NEUTROPHILS % (AUTO) 72.3 % (42.0-75.0); RED BLOOD COUNT 3.74 X10^6/uL (3.5-5.4); RED CELL DISTRIBUTION WIDTH 15.1 % (11.6-16.5); WHITE BLOOD COUNT 8.9 X10^3/uL (3.6-10.0)
[2022-10-03 18:02] VITALS: BMI 36.6
[2022-10-03] MEDS: NovoLIN R (or HumuLIN R) SC PRN (21:53)
[2022-10-03 23:30] LABS: BASOPHILS # (AUTO) 0.1 X10^3/uL (0.0-0.1); EOSINOPHILS # (AUTO) 0.2 x10^3/uL (0.0-0.2); EOSINOPHILS % (AUTO) 2.3 % (0.9-2.9); HEMATOCRIT 32.3 % (36.0-47.0); HEMOGLOBIN 10.5 g/dL (12.0-16.0); LYMPHOCYTES % (AUTO) 11.9 % (21.0-51.0); MEAN CORPUSCULAR HEMOGLOBIN 28.3 pg (27.0-34.0); MEAN CORPUSCULAR HGB CONC 32.5 g/dL (33.0-35.0); MEAN CORPUSCULAR VOLUME 87.3 fL (80.0-100.0); MEAN PLATELET VOLUME 10.7 fL (7.4-11.0); MONOCYTES # (AUTO) 0.5 x10^3/uL (0.3-0.8); MONOCYTES % (AUTO) 5.5 % (0.0-13.0); NEUTROPHILS # (AUTO) 6.9 x10^3/uL (2.2-4.8); NEUTROPHILS % (AUTO) 79.3 % (42.0-75.0); RED CELL DISTRIBUTION WIDTH 14.9 % (11.6-16.5); WHITE BLOOD COUNT 8.7 X10^3/uL (3.6-10.0)
--- NOTE | 2022-10-03 23:56 | NOTE.SOAP ---
Soap Note Note for Day of Date of Exam: 10/03/22 Subjective Data Subjective Data: Patient had placement of EKOS earlier today for thrombolysis of SFA thrombosis. Doing well. Objective Data Temperature: 98.6 F Pulse Rate: 80 Respiratory Rate: 18 Blood Pressure: 176/84 O2 Sat by Pulse Oximetry: 97 Objective Data: left foot is warm now. No bleeding around the right groin catheter. Assessment Assessment: Doing well with thrombolysis of the left leg SFA thrombosis. Plan Plan: Yo OR tomorrow for repeat arteriogram , possible stenting left SFA.
[2022-10-04] MEDS ORDERED: HEPARIN SODIUM INJ 5000 UNITS IVP ONE (01:05)
[2022-10-04] MEDS: DILAUDID INJ IVP PRN (02:08)
[2022-10-04] MEDS: NS 500 ML IV 500 ML IV SCH (02:10)
[2022-10-04 05:46] LABS: BASOPHILS % (AUTO) 0.3 % (0.2-1.0); EOSINOPHILS # (AUTO) 0.2 x10^3/uL (0.0-0.2); HEMATOCRIT 30.5 % (36.0-47.0); HEMOGLOBIN 9.9 g/dL (12.0-16.0); LYMPHOCYTES # (AUTO) 1.7 X10^3/uL (1.3-2.9); LYMPHOCYTES % (AUTO) 21.7 % (21.0-51.0); MEAN CORPUSCULAR HEMOGLOBIN 28.4 pg (27.0-34.0); MEAN CORPUSCULAR HGB CONC 32.5 g/dL (33.0-35.0); MEAN CORPUSCULAR VOLUME 87.3 fL (80.0-100.0); MEAN PLATELET VOLUME 10.8 fL (7.4-11.0); MONOCYTES # (AUTO) 0.5 x10^3/uL (0.3-0.8); MONOCYTES % (AUTO) 6.7 % (0.0-13.0); NEUTROPHILS # (AUTO) 5.4 x10^3/uL (2.2-4.8); NEUTROPHILS % (AUTO) 68.3 % (42.0-75.0); RED CELL DISTRIBUTION WIDTH 15.1 % (11.6-16.5); WHITE BLOOD COUNT 7.9 X10^3/uL (3.6-10.0)
[2022-10-04] MEDS: HEPARIN SODIUM IN D5W 25,000 UNITS/500 ML BAG INTRACATH PRN (06:43)
[2022-10-04] MEDS: LR 1,000 ML IV 1,000 ML IV SCH ×3 (07:02→20:50)
[2022-10-04] MEDS: ZOFRAN INJ 4 MG VIAL IVP PRN ×2 (07:34→18:02)
[2022-10-04] MEDS: PULMICORT NEB TX 0.5 MG NEB SCH ×2 (08:17→20:45)
[2022-10-04] MEDS: ZESTRIL TAB 20 MG PO SCH (08:41)
[2022-10-04] MEDS: LIPITOR TAB 20 MG PO SCH (08:41)
[2022-10-04] MEDS: TRICOR TAB 160 MG PO SCH (08:41)
[2022-10-04] MEDS: K-DUR TAB 20 MEQ PO SCH (08:41)
[2022-10-04] MEDS: PROTONIX TAB 40 MG PO SCH (08:41)
[2022-10-04] MEDS: TENORMIN PO SCH ×2 (08:41→20:27)
[2022-10-04] MEDS: ZOLOFT PO SCH (08:42)
[2022-10-04] MEDS ORDERED: BARHEMSYS INJ ONE (09:35)
[2022-10-04] MEDS ORDERED: ANCEF VIAL 1 GRAM ONE (10:01)
[2022-10-04] MEDS ORDERED: NS 100 ML IV 100 ML ONE (10:01)
[2022-10-04] MEDS ORDERED: DIPRIVAN VIAL 20 ML ONE (10:05)
[2022-10-04] MEDS ORDERED: ZOFRAN INJ 4 MG VIAL ONE (10:05)
[2022-10-04] MEDS ORDERED: PEPCID 20 MG VIAL ONE (10:05)
[2022-10-04] MEDS ORDERED: DECADRON INJ ONE (10:05)
[2022-10-04] MEDS ORDERED: OFIRMEV IV 1000 MG VIAL 1,000 MG/100 ML VIAL IV ONE (10:05)
[2022-10-04] MEDS ORDERED: HEPARIN SODIUM INJ 5000 UNITS ONE (10:05)
[2022-10-04] MEDS ORDERED: TORADOL 30 MG VIAL ONE (10:06)
[2022-10-04] MEDS ORDERED: FENTANYL VIAL INJ 100 mcg ONE (10:07)
[2022-10-04] MEDS ORDERED: VERSED ONE (10:07)
[2022-10-04] MEDS ORDERED: MARCAINE 0.5% ONE (10:08)
[2022-10-04] MEDS ORDERED: HEPARIN SODIUM IN D5W 75,000 UNITS/1,500 ML BAG ONE (10:18)
--- NOTE | 2022-10-04 10:36 | RAD ---
HISTORYPRE OP VASCULAR SURGSTUDYCHEST, 1 [id number] t heart size. Pulmonary vascular indistinctness with interstitial thickening is noted. No sizable pleural effusion, focal consolidation, or visible pneumothorax. No acute osseous finding.IMPRESSIONCardiomegaly with evidence of CHF versus less likely atypical infection.Electronically signed by: Rajeev Mcnally (Oct 04, 2022 10:34:50)
[2022-10-04] MEDS ORDERED: PROTAMINE SULFATE 50 MG VIAL ONE (11:00)
--- NOTE | 2022-10-04 11:35 | OR.IMMED ---
IMMEDIATE POST-OP NOTE Immediate Post-Op Note Pre-Op Diagnosis: Critical ischemia left leg, S/P thrombolysis overnight Post-Op Diagnosis: same, severe stenosis takeoff of left superficial femoral artery Procedure: arteriogram left leg, stenting proximal left superficial femoral artery at takeoff Description of Procedure: see operative summary Surgeon/Line Service Technician: Kizzy Findings: as above Estimated Blood Loss: < 25 cc Complications: none Progress Notes: Return to ICU, probably discharge tomorrow Final Diagnosis: as above
--- NOTE | 2022-10-04 15:36 | DR.OPNOTE ---
OP NOTE Pre-Op Diagnosis: Critical left leg limb ischemia , thrombosis of left SFA Post-Op Diagnosis: same Procedure Date Date Of Procedure: 10/03/22 Procedure: PROCEDURE: Diagnostic aortogram , diagnostic arteriogram left lower extremity, placement left superficial femoral artery EKOS thrombolytic catheter, overnight directed thrombolysis left SFA thrombosis. NARRATIVE: The patient was taken to the operative suite and placed in the supine position. The right groin and left leg were prepped and draped in sterile fashion. The patient was administered intravenous sedation which was supervised by myself. Time out for the procedure obtained. Ultrasound used to identify the right common femoral artery and the skin overlying it infiltrated with 0. 5% Marcaine . Ultrasound used to guide puncture of the right common femoral artery and a 0. 012 inch guide wire placed . Incision made over the guide wire at the skin edge with a number 11 knife blade and a micro sheath placed over the guide wire into the right femoral artery . The small guide wire exchanged for a 0. 035 inch Advantage glidewire and the micro sheath exchanged for a 5 Fr vascular sheath . Over the guide wire we placed an Omni catheter and performed diagnostic aortogram. Aorta and iliac arteries were normal . Omni catheter used to steer the guidewire down the left side to the left distal external iliac artery. The five Fr sheath in the right groin exchanged for a 7 Fr destination sheath and was parked in the distal left external iliac artery. Arteriogram of the left lower extremity showed complete occlusion at the take-off of the left superficial femoral artery with complete total occlusion down to the mid part of the superficial artery with normal flow below that recognizing a normal popliteal artery and normal runoff to the ankle .Using a Stinnett catheter and a 0. 018 inch wire we are they able to get across the occlusion into the lumen of popliteal artery as selective catherization. This was confirmed with arteriogram . Stinnett catheter removed and over the wire we placed the EKOS catheter, the wire removed and the inner core placed and it was connected to tPA at 1 mg per hour after a bolus of 3mg of tPA given through the catheter. Coolant of normal saline started at 30 cc's per hour. Ultrasonic vibration started and a Heparin drip started at 300 units per hour through the sheath. Patietn was taken back to the ICU in good condition. Type of Anesthesia: Local (0.5% Marcaine) Anesthesia Comment: plus MAC Findings: Thrombosis and complete total occlusion of the proximal superficial femoral artery starting at its takeoff. Type of Fluids Used:: Lactated Ringers Total Amount of Fluid Infused:: 350 cc EBL: 100 cc Complications:: none Needle/Sponge Count:: correct Disposition/Condition: Pt. tolerated procedure without difficulty. Taken back to the ICU in stable condition.
[2022-10-04] MEDS: NovoLIN R (or HumuLIN R) SC PRN ×2 (16:27→20:51)
--- NOTE | 2022-10-04 22:00 | NOTE.SOAP ---
Soap Note Note for Day of Date of Exam: 10/04/22 Subjective Data Subjective Data: Had stenting of left superficial femoral artery this AM. Nausea is improved. left foot warm. All rest pain left leg is resolved. Objective Data Pulse Rate: 64 Respiratory Rate: 19 Blood Pressure: 137/59 O2 Sat by Pulse Oximetry: 91 Objective Data: as above Assessment Assessment: Ischemic left leg resolved after thrombolysis and stenting left s uperficial femoral artery.
[2022-10-05] MEDS: NovoLIN R (or HumuLIN R) SC PRN (06:12)
[2022-10-05 08:09] VITALS: BP 162/87
[2022-10-05] MEDS ORDERED: ZESTRIL TAB 20 MG ONE (08:14)
[2022-10-05] MEDS: TENORMIN PO SCH (08:25)
[2022-10-05] MEDS: ZOLOFT PO SCH (08:25)
[2022-10-05] MEDS: PROTONIX TAB 40 MG PO SCH (08:25)
[2022-10-05] MEDS: ZESTRIL TAB 20 MG PO SCH (08:25)
[2022-10-05] MEDS: LIPITOR TAB 20 MG PO SCH (08:25)
[2022-10-05] MEDS: K-DUR TAB 20 MEQ PO SCH (08:25)
[2022-10-05] MEDS: TRICOR TAB 160 MG PO SCH (08:26)
[2022-10-05] MEDS: ZOFRAN INJ 4 MG VIAL IVP PRN (08:38)
[2022-10-05] MEDS: PULMICORT NEB TX 0.5 MG NEB SCH (08:45)
--- NOTE | 2022-10-05 10:43 | W.DIS.FURT ---
Summary of Discharge Discharge Summary of Date Date of Exam: 10/05/22 Admission Date Date of Admission: 10/02/22 Admission Diagnosis Hospital Course: 61 year old female who has had significant arterial interventions of the left leg within the last year. She presented to the hospital in [place], [place] with findings consistent with acute ischemia of the left leg and rest pain. 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 She was transferred to [facility] for care. We started her on a Heparin drip and the next day she underwent placement of a EKOS thrombolytic catheter. She underwent 12 hours of thrombolysis with tPA was taken back to the operating room the next day where repeat arteriogram showed the vessel to be open with evidence of severe stenosis at the takeoff of the left superficial femoral artery. This was stented open and she has done well. She has palpable pulses at her left ankle. She will be discharged home on her usual medications to include Xarelto and Plavix. She will follow up with me in 1 week. She has had some nausea last couple days which is improved and she will be given prescript ion for Zofran , 4 mg , 1 po q 6 hr PRN nausea. She will follow up with me in 1 week. Vital Signs: Vital Signs (72 hours) 10/04/22 21:59 10/03/22 23:55 10/02/22 14:42 Temperature 98.6 F Pulse Rate 64 80 58 L Respiratory Rate 19 18 14 Blood Pressure 137/59 176/84 O2 Sat by Pulse Oximetry 91 L 97 89 L Oxygen Delivery Method Oxygen Flow Rate FIO2% 10/02/22 14:45 10/02/22 15:00 10/02/22 15:00 Temperature Pulse Rate 54 L 51 L Respiratory Rate 6 L 16 Blood Pressure 92/55 O2 Sat by Pulse Oximetry 97 91 L Oxygen Delivery Method Oxygen Flow Rate FIO2% 10/02/22 15:15 10/02/22 15:30 10/02/22 15:45 Temperature Pulse Rate 52 L 53 L 53 L Respiratory Rate 19 13 27 H Blood Pressure O2 Sat by Pulse Oximetry 88 L 90 L 97 Oxygen Delivery Method Oxygen Flow Rate FIO2% 10/02/22 16:00 10/02/22 16:00 10/02/22 16:27 Temperature 97.4 F L Pulse Rate 50 L Respiratory Rate 13 Blood Pressure 90/54 O2 Sat by Pulse Oximetry 98 Oxygen Delivery Method Oxygen Flow Rate FIO2% 10/02/22 14:15 10/02/22 16:15 10/02/22 16:30 Temperature Pulse Rate 52 L 51 L Respiratory Rate 25 H 13 Blood Pressure O2 Sat by Pulse Oximetry 99 99 Oxygen Delivery Method Room Air Oxygen Flow Rate FIO2% 10/02/22 16:45 10/02/22 17:00 10/02/22 17:00 Temperature Pulse Rate 51 L 51 L Respiratory Rate 22 13 Blood Pressure 97/54 O2 Sat by Pulse Oximetry 100 98 Oxygen Delivery Method Oxygen Flow Rate FIO2% 10/02/22 18:13 10/02/22 17:00 10/02/22 17:15 Temperature Pulse Rate 51 L 61 Respiratory Rate 22 13 21 Blood Pressure O2 Sat by Pulse Oximetry 98 97 Oxygen Delivery Method Oxygen Flow Rate FIO2% 10/02/22 17:30 10/02/22 17:45 10/02/22 18:00 Temperature Pulse Rate 59 L 59 L 68 Respiratory Rate 19 24 37 H Blood Pressure O2 Sat by Pulse Oximetry 94 L 100 91 L Oxygen Delivery Method Oxygen Flow Rate FIO2% 10/02/22 18:02 10/02/22 18:02 10/02/22 19:13 Temperature Pulse Rate 67 Respiratory Rate 25 H 22 Blood Pressure 113/56 O2 Sat by Pulse Oximetry 82 L Oxygen Delivery Method Oxygen Flow Rate FIO2% 10/02/22 19:00 10/02/22 19:00 10/02/22 20:00 Temperature 98.3 F Pulse Rate 59 L 67 Respiratory Rate 17 19 Blood Pressure 114/54 121/59 O2 Sat by Pulse Oximetry 94 L 98 Oxygen Delivery Method Nasal Cannula Room Air Nasal Cannula Oxygen Flow Rate 2 FIO2% 10/02/22 20:00 10/02/22 20:00 10/02/22 21:00 Temperature Pulse Rate 65 72 Respiratory Rate 15 Blood Pressure 130/60 O2 Sat by Pulse Oximetry 100 98 Oxygen Delivery Method Nasal Cannula Nasal Cannula Oxygen Flow Rate 2 2 FIO2% 28 10/02/22 22:00 10/02/22 23:00 10/03/22 00:00 Temperature 98.1 F Pulse Rate 65 68 64 Respiratory Rate 16 17 17 Blood Pressure 142/65 114/57 101/54 O2 Sat by Pulse Oximetry 100 91 L 97 Oxygen Delivery Method Nasal Cannula Room Air Nasal Cannula Oxygen Flow Rate 2 2 FIO2% 11/16/22 01:00 10/03/22 02:00 10/03/22 03:00 Temperature Pulse Rate 65 65 66 Respiratory Rate 19 26 H 16 Blood Pressure 129/66 138/68 114/56 O2 Sat by Pulse Oximetry 94 L 99 98 Oxygen Delivery Method Room Air Nasal Cannula Nasal Cannula Oxygen Flow Rate 2 2 FIO2% 10/03/22 04:00 10/03/22 05:00 10/03/22 06:00 Temperature 98.3 F Pulse Rate 68 63 69 Respiratory Rate 16 15 18 Blood Pressure 112/58 124/60 127/59 O2 Sat by Pulse Oximetry 97 100 99 Oxygen Delivery Method Nasal Cannula Nasal Cannula Nasal Cannula Oxygen Flow Rate 2 2 2 FIO2% 10/03/22 07:00 10/03/22 07:20 10/02/22 22:00 Temperature 98.3 F Pulse Rate 65 Respiratory Rate 16 Blood Pressure O2 Sat by Pulse Oximetry 100 Oxygen Delivery Method Nasal Cannula Oxygen Flow Rate 2 FIO2% 10/02/22 22:15 10/02/22 22:46 10/02/22 23:00 Temperature Pulse Rate 66 77 Respiratory Rate 15 23 Blood Pressure 114/57 O2 Sat by Pulse Oximetry 100 85 L Oxygen Delivery Method Oxygen Flow Rate FIO2% 10/02/22 23:00 10/02/22 23:15 10/02/22 23:30 Temperature Pulse Rate 68 68 74 Respiratory Rate 17 16 20 Blood Pressure O2 Sat by Pulse Oximetry 91 L 97 95 Oxygen Delivery Method Oxygen Flow Rate FIO2% 10/02/22 23:45 10/03/22 00:00 10/03/22 00:01 Temperature Pulse Rate 70 67 Respiratory Rate 21 22 Blood Pressure 79/40 O2 Sat by Pulse Oximetry 95 84 L Oxygen Delivery Method Oxygen Flow Rate FIO2% 10/03/22 00:01 10/03/22 00:05 10/03/22 00:05 Temperature Pulse Rate 70 64 Respiratory Rate 24 17 Blood Pressure 101/54 O2 Sat by Pulse Oximetry 97 94 L Oxygen Delivery Method Oxygen Flow Rate FIO2% 10/03/22 00:15 10/03/22 00:30 10/03/22 00:45 Temperature Pulse Rate 64 65 65 Respiratory Rate 17 15 16 Blood Pressure O2 Sat by Pulse Oximetry 94 L 97 95 Oxygen Delivery Method Oxygen Flow Rate FIO2% 10/03/22 01:00 10/03/22 01:01 10/03/22 01:01 Temperature Pulse Rate 65 65 Respiratory Rate 20 19 Blood Pressure 129/66 O2 Sat by Pulse Oximetry 95 94 L Oxygen Delivery Method Oxygen Flow Rate FIO2% 10/03/22 01:15 10/03/22 01:30 10/03/22 01:45 Temperature Pulse Rate 62 59 L 66 Respiratory Rate 14 17 23 Blood Pressure O2 Sat by Pulse Oximetry 100 100 92 L Oxygen Delivery Method Oxygen Flow Rate FIO2% 10/03/22 02:00 10/03/22 02:00 10/03/22 02:15 Temperature Pulse Rate 65 61 Respiratory Rate 26 H 15 Blood Pressure 138/68 O2 Sat by Pulse Oximetry 99 100 Oxygen Delivery Method Oxygen Flow Rate FIO2% 10/03/22 02:30 10/03/22 02:45 10/03/22 03:00 Temperature Pulse Rate 65 65 Respiratory Rate 17 16 Blood Pressure 114/59 O2 Sat by Pulse Oximetry 100 98 Oxygen Delivery Method Oxygen Flow Rate FIO2% 10/03/22 03:00 10/03/22 03:09 10/03/22 03:09 Temperature Pulse Rate 68 66 Respiratory Rate 15 16 Blood Pressure 114/56 O2 Sat by Pulse Oximetry 98 98 Oxygen Delivery Method Oxygen Flow Rate FIO2% 10/03/22 03:15 10/03/22 03:30 10/03/22 03:45 Temperature Pulse Rate 67 69 68 Respiratory Rate 16 16 15 Blood Pressure O2 Sat by Pulse Oximetry 98 98 98 Oxygen Delivery Method Oxygen Flow Rate FIO2% 10/03/22 04:00 10/03/22 04:00 10/03/22 04:50 Temperature Pulse Rate 68 69 Respiratory Rate 16 Blood Pressure 112/58 O2 Sat by Pulse Oximetry 97 Oxygen Delivery Method Oxygen Flow Rate FIO2% 10/03/22 05:00 10/03/22 05:00 10/03/22 05:15 Temperature Pulse Rate 63 62 Respiratory Rate 15 16 Blood Pressure 124/60 O2 Sat by Pulse Oximetry 100 99 Oxygen Delivery Method Oxygen Flow Rate FIO2% 10/03/22 05:30 10/03/22 05:45 10/03/22 06:00 Temperature Pulse Rate 63 68 Respiratory Rate 16 16 Blood Pressure 127/59 O2 Sat by Pulse Oximetry 99 99 Oxygen Delivery Method Oxygen Flow Rate FIO2% 10/03/22 06:00 10/03/22 06:15 10/03/22 06:30 Temperature Pulse Rate 69 70 70 Respiratory Rate 18 17 19 Blood Pressure O2 Sat by Pulse Oximetry 99 98 98 Oxygen Delivery Method Oxygen Flow Rate FIO2% 10/03/22 06:45 10/03/22 07:00 10/03/22 07:00 Temperature Pulse Rate 71 73 Respiratory Rate 16 16 Blood Pressure 131/61 O2 Sat by Pulse Oximetry 98 98 Oxygen Delivery Method Oxygen Flow Rate FIO2% 10/03/22 07:16 10/03/22 08:05 10/03/22 07:30 Temperature Pulse Rate 81 71 71 Respiratory Rate 26 H 0 L Blood Pressure O2 Sat by Pulse Oximetry 85 L 93 L Oxygen Delivery Method Oxygen Flow Rate FIO2% 10/03/22 07:45 10/03/22 08:00 10/03/22 08:01 Temperature Pulse Rate 71 71 Respiratory Rate 18 12 Blood Pressure 128/60 O2 Sat by Pulse Oximetry 93 L 92 L Oxygen Delivery Method Oxygen Flow Rate FIO2% 10/03/22 08:01 10/03/22 10:41 10/03/22 10:15 Temperature 98.1 F Pulse Rate 70 73 Respiratory Rate 14 17 16 Blood Pressure 168/74 O2 Sat by Pulse Oximetry 91 L 100 Oxygen Delivery Method Nasal Cannula Oxygen Flow Rate 3 FIO2% 10/03/22 10:30 10/03/22 08:15 10/03/22 10:10 Temperature 98.1 F Pulse Rate 76 84 Respiratory Rate 17 39 H Blood Pressure 173/74 168/74 O2 Sat by Pulse Oximetry 99 91 L Oxygen Delivery Method Nasal Cannula Oxygen Flow Rate 3 FIO2% 10/03/22 10:10 10/03/22 10:15 10/03/22 10:30 Temperature Pulse Rate 75 74 77 Respiratory Rate 21 9 L Blood Pressure O2 Sat by Pulse Oximetry 97 98 97 Oxygen Delivery Method Oxygen Flow Rate FIO2% 10/03/22 10:34 10/03/22 10:34 10/03/22 10:45 Temperature Pulse Rate 74 Respiratory Rate 9 L Blood Pressure 173/74 158/68 O2 Sat by Pulse Oximetry 98 Oxygen Delivery Method Oxygen Flow Rate FIO2% 10/03/22 10:45 10/03/22 11:00 10/03/22 11:00 Temperature Pulse Rate 74 74 Respiratory Rate 9 L 18 Blood Pressure 145/67 O2 Sat by Pulse Oximetry 97 95 Oxygen Delivery Method Oxygen Flow Rate FIO2% 10/03/22 11:11 10/03/22 11:16 10/03/22 12:04 Temperature Pulse Rate 74 Respiratory Rate 17 18 16 Blood Pressure 145/61 O2 Sat by Pulse Oximetry 95 Oxygen Delivery Method Oxygen Flow Rate FIO2% 10/03/22 11:15 10/03/22 11:15 10/03/22 11:30 Temperature Pulse Rate 75 Respiratory Rate 15 Blood Pressure 145/61 150/67 O2 Sat by Pulse Oximetry 95 Oxygen Delivery Method Oxygen Flow Rate FIO2% 10/03/22 11:30 10/03/22 11:45 10/03/22 11:45 Temperature Pulse Rate 77 79 Respiratory Rate 19 21 Blood Pressure 154/65 O2 Sat by Pulse Oximetry 96 98 Oxygen Delivery Method Oxygen Flow Rate FIO2% 10/03/22 12:00 10/03/22 12:00 10/03/22 12:15 Temperature 98.5 F Pulse Rate 73 74 Respiratory Rate 11 L 18 Blood Pressure 154/67 154/67 O2 Sat by Pulse Oximetry 96 97 Oxygen Delivery Method Oxygen Flow Rate FIO2% 10/03/22 12:15 10/03/22 12:30 10/03/22 12:31 Temperature Pulse Rate 74 79 Respiratory Rate 18 12 Blood Pressure 156/71 O2 Sat by Pulse Oximetry 96 97 Oxygen Delivery Method Oxygen Flow Rate FIO2% 10/03/22 12:31 10/03/22 12:45 10/03/22 13:00 Temperature Pulse Rate 79 85 82 Respiratory Rate 31 H 33 H 14 Blood Pressure O2 Sat by Pulse Oximetry 97 99 96 Oxygen Delivery Method Oxygen Flow Rate FIO2% 10/03/22 13:01 10/03/22 13:01 10/03/22 13:15 Temperature 98.2 F Pulse Rate 80 86 Respiratory Rate 14 35 H Blood Pressure 157/66 O2 Sat by Pulse Oximetry 96 97 Oxygen Delivery Method Oxygen Flow Rate FIO2% 10/03/22 13:04 10/03/22 13:30 10/03/22 13:30 Temperature Pulse Rate 85 Respiratory Rate 16 14 Blood Pressure 138/63 O2 Sat by Pulse Oximetry 96 Oxygen Delivery Method Oxygen Flow Rate FIO2% 10/03/22 13:45 10/03/22 14:00 10/03/22 14:00 Temperature Pulse Rate 85 82 Respiratory Rate 15 14 Blood Pressure 143/65 O2 Sat by Pulse Oximetry 98 98 Oxygen Delivery Method Oxygen Flow Rate FIO2% 10/03/22 14:49 10/03/22 14:50 10/03/22 14:15 Temperature 98.6 F Pulse Rate 82 Respiratory Rate 17 19 Blood Pressure O2 Sat by Pulse Oximetry 97 Oxygen Delivery Method Oxygen Flow Rate FIO2% 10/03/22 14:30 10/03/22 14:30 10/03/22 14:45 Temperature Pulse Rate 80 81 Respiratory Rate 13 13 Blood Pressure 162/79 O2 Sat by Pulse Oximetry 98 97 Oxygen Delivery Method Oxygen Flow Rate FIO2% 10/03/22 15:00 10/03/22 15:00 10/03/22 15:19 Temperature 98.6 F Pulse Rate 81 Respiratory Rate 11 L 17 Blood Pressure 156/69 O2 Sat by Pulse Oximetry 96 Oxygen Delivery Method Oxygen Flow Rate FIO2% 10/03/22 15:15 10/03/22 15:30 10/03/22 15:45 Temperature Pulse Rate 83 81 76 Respiratory Rate 23 13 22 Blood Pressure O2 Sat by Pulse Oximetry 96 95 96 Oxygen Delivery Method Oxygen Flow Rate FIO2% 10/03/22 16:00 10/03/22 17:01 10/03/22 16:01 Temperature 98.2 F Pulse Rate 84 Respiratory Rate 21 18 Blood Pressure 129/61 O2 Sat by Pulse Oximetry 99 Oxygen Delivery Method Oxygen Flow Rate FIO2% 10/03/22 16:01 10/03/22 16:15 10/03/22 16:30 Temperature Pulse Rate 82 82 86 Respiratory Rate 16 14 13 Blood Pressure O2 Sat by Pulse Oximetry 98 96 97 Oxygen Delivery Method Oxygen Flow Rate FIO2% 10/03/22 16:45 10/03/22 17:00 10/03/22 17:00 Temperature Pulse Rate 81 80 Respiratory Rate 15 12 Blood Pressure 140/65 O2 Sat by Pulse Oximetry 99 96 Oxygen Delivery Method Oxygen Flow Rate FIO2% 10/03/22 17:15 10/03/22 17:30 10/03/22 17:45 Temperature Pulse Rate 88 87 87 Respiratory Rate 17 26 H 23 Blood Pressure O2 Sat by Pulse Oximetry 98 97 98 Oxygen Delivery Method Oxygen Flow Rate FIO2% 10/03/22 18:00 10/03/22 18:00 10/03/22 18:01 Temperature Pulse Rate 87 Respiratory Rate 18 16 Blood Pressure 146/66 O2 Sat by Pulse Oximetry 95 Oxygen Delivery Method Oxygen Flow Rate FIO2% 10/03/22 19:00 10/03/22 20:00 10/03/22 19:00 Temperature Pulse Rate 84 77 Respiratory Rate 21 13 Blood Pressure 165/72 176/78 O2 Sat by Pulse Oximetry 98 98 Oxygen Delivery Method Nasal Cannula Oxygen Flow Rate 2 FIO2% 10/03/22 20:38 10/03/22 20:38 10/03/22 22:26 Temperature Pulse Rate 77 Respiratory Rate 16 Blood Pressure O2 Sat by Pulse Oximetry 97 Oxygen Delivery Method Nasal Cannula Oxygen Flow Rate 2 FIO2% 28 10/03/22 23:26 10/03/22 21:00 10/03/22 22:00 Temperature Pulse Rate 78 81 Respiratory Rate 16 18 30 H Blood Pressure 182/77 168/84 O2 Sat by Pulse Oximetry 97 98 Oxygen Delivery Method Oxygen Flow Rate FIO2% 10/03/22 23:00 10/04/22 00:00 10/04/22 02:08 Temperature 99.2 F Pulse Rate 78 72 Respiratory Rate 21 19 16 Blood Pressure 145/65 153/68 O2 Sat by Pulse Oximetry 95 96 Oxygen Delivery Method Oxygen Flow Rate FIO2% 10/04/22 01:00 10/04/22 02:00 10/04/22 03:00 Temperature Pulse Rate 72 73 74 Respiratory Rate 20 14 29 H Blood Pressure 129/61 113/56 113/56 O2 Sat by Pulse Oximetry 95 96 96 Oxygen Delivery Method Oxygen Flow Rate FIO2% 10/04/22 04:00 10/04/22 05:00 10/04/22 06:00 Temperature 99.0 F Pulse Rate 72 70 121 H Respiratory Rate 16 17 14 Blood Pressure 110/54 117/57 121/64 O2 Sat by Pulse Oximetry 92 L 98 96 Oxygen Delivery Method Oxygen Flow Rate FIO2% 10/04/22 02:38 10/04/22 07:00 10/03/22 22:00 Temperature Pulse Rate Respiratory Rate 18 Blood Pressure 168/84 O2 Sat by Pulse Oximetry Oxygen Delivery Method Nasal Cannula Oxygen Flow Rate 2 FIO2% 10/03/22 22:00 10/03/22 22:15 10/03/22 22:30 Temperature Pulse Rate 81 81 79 Respiratory Rate 30 H 17 37 H Blood Pressure O2 Sat by Pulse Oximetry 98 98 98 Oxygen Delivery Method Oxygen Flow Rate FIO2% 10/03/22 22:45 10/03/22 23:00 10/03/22 23:01 Temperature Pulse Rate 79 79 Respiratory Rate 19 17 Blood Pressure 145/65 O2 Sat by Pulse Oximetry 93 L 89 L Oxygen Delivery Method Oxygen Flow Rate FIO2% 10/03/22 23:01 10/03/22 23:01 10/03/22 23:15 Temperature Pulse Rate 78 79 Respiratory Rate 21 15 Blood Pressure 145/65 O2 Sat by Pulse Oximetry 88 L 89 L Oxygen Delivery Method Oxygen Flow Rate FIO2% 10/03/22 23:30 10/03/22 23:45 10/04/22 00:00 Temperature Pulse Rate 76 73 Respiratory Rate 20 21 Blood Pressure 153/68 O2 Sat by Pulse Oximetry 89 L 96 Oxygen Delivery Method Oxygen Flow Rate FIO2% 10/04/22 00:00 10/04/22 00:15 10/04/22 00:30 Temperature Pulse Rate 72 74 72 Respiratory Rate 19 32 H 19 Blood Pressure O2 Sat by Pulse Oximetry 96 97 96 Oxygen Delivery Method Oxygen Flow Rate FIO2% 10/04/22 00:45 10/04/22 01:00 10/04/22 01:00 Temperature Pulse Rate 72 70 Respiratory Rate 18 20 Blood Pressure 129/61 O2 Sat by Pulse Oximetry 96 95 Oxygen Delivery Method Oxygen Flow Rate FIO2% 10/04/22 01:15 10/04/22 01:30 10/04/22 01:45 Temperature Pulse Rate 69 72 70 Respiratory Rate 18 13 15 Blood Pressure O2 Sat by Pulse Oximetry 95 77 L 96 Oxygen Delivery Method Oxygen Flow Rate FIO2% 10/04/22 02:00 10/04/22 02:00 10/04/22 02:15 Temperature Pulse Rate 71 68 Respiratory Rate 14 22 Blood Pressure 113/56 O2 Sat by Pulse Oximetry 96 93 L Oxygen Delivery Method Oxygen Flow Rate FIO2% 10/04/22 02:30 10/04/22 02:45 10/04/22 03:00 Temperature Pulse Rate 68 71 Respiratory Rate 29 H 28 H Blood Pressure 113/56 O2 Sat by Pulse Oximetry 95 94 L Oxygen Delivery Method Oxygen Flow Rate FIO2% 10/04/22 03:00 10/04/22 03:15 10/04/22 03:30 Temperature Pulse Rate 72 71 71 Respiratory Rate 29 H 22 18 Blood Pressure O2 Sat by Pulse Oximetry 96 97 97 Oxygen Delivery Method Oxygen Flow Rate FIO2% 10/04/22 03:45 10/04/22 04:00 10/04/22 04:01 Temperature Pulse Rate 69 69 72 Respiratory Rate 15 16 16 Blood Pressure O2 Sat by Pulse Oximetry 93 L 92 L 92 L Oxygen Delivery Method Oxygen Flow Rate FIO2% 10/04/22 04:01 10/04/22 04:15 10/04/22 04:30 Temperature Pulse Rate 70 74 Respiratory Rate 15 23 Blood Pressure 110/54 O2 Sat by Pulse Oximetry 95 98 Oxygen Delivery Method Oxygen Flow Rate FIO2% 10/04/22 04:45 10/04/22 05:00 10/04/22 05:00 Temperature Pulse Rate 69 70 Respiratory Rate 16 17 Blood Pressure 117/57 O2 Sat by Pulse Oximetry 97 98 Oxygen Delivery Method Oxygen Flow Rate FIO2% 10/04/22 05:15 10/04/22 05:30 10/04/22 05:45 Temperature Pulse Rate 71 69 69 Respiratory Rate 15 11 L 18 Blood Pressure O2 Sat by Pulse Oximetry 97 96 96 Oxygen Delivery Method Oxygen Flow Rate FIO2% 10/04/22 06:00 10/04/22 06:00 10/04/22 06:15 Temperature Pulse Rate 71 72 Respiratory Rate 22 11 L Blood Pressure 121/64 O2 Sat by Pulse Oximetry 98 90 L Oxygen Delivery Method Oxygen Flow Rate FIO2% 10/04/22 06:30 10/04/22 06:45 10/04/22 07:00 Temperature Pulse Rate 72 70 Respiratory Rate 13 15 Blood Pressure 144/65 O2 Sat by Pulse Oximetry 87 L 94 L Oxygen Delivery Method Oxygen Flow Rate FIO2% 10/04/22 07:00 10/04/22 07:15 10/04/22 07:30 Temperature 99.3 F Pulse Rate 78 69 71 Respiratory Rate 24 16 11 L Blood Pressure O2 Sat by Pulse Oximetry 91 L 91 L 88 L Oxygen Delivery Method Oxygen Flow Rate FIO2% 10/04/22 07:45 10/04/22 08:00 10/04/22 08:00 Temperature Pulse Rate 73 77 Respiratory Rate 12 9 L Blood Pressure 144/65 O2 Sat by Pulse Oximetry 92 L 88 L Oxygen Delivery Method Oxygen Flow Rate FIO2% 10/04/22 08:15 10/04/22 08:30 10/04/22 08:45 Temperature Pulse Rate 84 76 75 Respiratory Rate 18 16 13 Blood Pressure O2 Sat by Pulse Oximetry 87 L 94 L 94 L Oxygen Delivery Method Oxygen Flow Rate FIO2% 10/04/22 09:00 10/04/22 09:00 10/04/22 08:17 Temperature Pulse Rate 77 Respiratory Rate 13 Blood Pressure 147/65 O2 Sat by Pulse Oximetry 91 L Oxygen Delivery Method Nasal Cannula Oxygen Flow Rate 2 FIO2% 28 10/04/22 08:17 10/04/22 09:35 10/04/22 10:26 Temperature 97.5 F L Pulse Rate 78 75 Respiratory Rate 20 16 Blood Pressure 142/59 O2 Sat by Pulse Oximetry 97 94 L Oxygen Delivery Method Nasal Cannula Oxygen Flow Rate FIO2% 10/04/22 11:20 10/04/22 11:35 10/04/22 11:50 Temperature 98.4 F 98.7 F Pulse Rate 77 66 80 Respiratory Rate 18 18 17 Blood Pressure 121/56 121/61 96/55 O2 Sat by Pulse Oximetry 94 L 95 95 Oxygen Delivery Method Nasal Cannula Nasal Cannula Oxygen Flow Rate 3 3 FIO2% 10/04/22 09:15 10/04/22 11:21 10/04/22 11:23 Temperature Pulse Rate 72 81 Respiratory Rate 17 Blood Pressure 121/56 O2 Sat by Pulse Oximetry 97 94 L Oxygen Delivery Method Oxygen Flow Rate FIO2% 10/04/22 11:23 10/04/22 11:30 10/04/22 11:30 Temperature Pulse Rate 80 71 Respiratory Rate 11 L 18 Blood Pressure 125/61 O2 Sat by Pulse Oximetry 95 97 Oxygen Delivery Method Oxygen Flow Rate FIO2% 10/04/22 11:45 10/04/22 11:46 10/04/22 11:46 Temperature Pulse Rate 72 68 Respiratory Rate Blood Pressure 96/55 O2 Sat by Pulse Oximetry 91 L 94 L Oxygen Delivery Method Oxygen Flow Rate FIO2% 10/04/22 12:00 10/04/22 12:00 10/04/22 12:05 Temperature 98.7 F Pulse Rate 65 63 Respiratory Rate 17 18 Blood Pressure 124/58 124/58 O2 Sat by Pulse Oximetry 94 L 95 Oxygen Delivery Method Oxygen Flow Rate FIO2% 10/04/22 13:06 10/04/22 12:15 10/04/22 12:15 Temperature 98.4 F Pulse Rate 66 Respiratory Rate 15 Blood Pressure 108/53 O2 Sat by Pulse Oximetry 85 L Oxygen Delivery Method Oxygen Flow Rate FIO2% 10/04/22 12:30 10/04/22 12:45 10/04/22 13:00 Temperature Pulse Rate 64 70 64 Respiratory Rate 17 18 14 Blood Pressure O2 Sat by Pulse Oximetry 97 88 L 95 Oxygen Delivery Method Oxygen Flow Rate FIO2% 10/04/22 13:01 10/04/22 13:01 10/04/22 13:15 Temperature Pulse Rate 64 66 Respiratory Rate 11 L 19 Blood Pressure 144/67 O2 Sat by Pulse Oximetry 96 95 Oxygen Delivery Method Oxygen Flow Rate FIO2% 10/04/22 13:30 10/04/22 13:45 10/04/22 14:00 Temperature Pulse Rate 66 77 74 Respiratory Rate 19 21 20 Blood Pressure O2 Sat by Pulse Oximetry 96 97 95 Oxygen Delivery Method Oxygen Flow Rate FIO2% 10/04/22 14:01 10/04/22 14:01 10/04/22 14:15 Temperature Pulse Rate 75 76 Respiratory Rate 28 H 24 Blood Pressure 148/67 O2 Sat by Pulse Oximetry 98 92 L Oxygen Delivery Method Oxygen Flow Rate FIO2% 10/04/22 14:30 10/04/22 14:45 10/04/22 15:00 Temperature Pulse Rate 72 70 Respiratory Rate 18 Blood Pressure 169/72 O2 Sat by Pulse Oximetry 91 L 91 L Oxygen Delivery Method Oxygen Flow Rate FIO2% 10/04/22 15:00 10/04/22 15:15 10/04/22 15:30 Temperature Pulse Rate 65 60 58 L Respiratory Rate 20 18 19 Blood Pressure O2 Sat by Pulse Oximetry 95 98 98 Oxygen Delivery Method Oxygen Flow Rate FIO2% 10/04/22 15:45 10/04/22 16:00 10/04/22 16:01 Temperature Pulse Rate 58 L 57 L Respiratory Rate 18 18 Blood Pressure 163/68 O2 Sat by Pulse Oximetry 98 96 Oxygen Delivery Method Oxygen Flow Rate FIO2% 10/04/22 16:01 10/04/22 16:15 10/04/22 16:30 Temperature Pulse Rate 59 L 64 71 Respiratory Rate 18 15 18 Blood Pressure O2 Sat by Pulse Oximetry 98 98 98 Oxygen Delivery Method Oxygen Flow Rate FIO2% 10/04/22 16:45 10/04/22 17:00 10/04/22 17:00 Temperature Pulse Rate 64 69 Respiratory Rate 18 17 Blood Pressure 159/70 O2 Sat by Pulse Oximetry 98 94 L Oxygen Delivery Method Oxygen Flow Rate FIO2% 10/04/22 17:15 10/04/22 17:30 10/04/22 17:45 Temperature Pulse Rate 69 74 77 Respiratory Rate 25 H 27 H 17 Blood Pressure O2 Sat by Pulse Oximetry 98 92 L 88 L Oxygen Delivery Method Oxygen Flow Rate FIO2% 10/04/22 18:00 10/04/22 18:01 10/04/22 18:01 Temperature Pulse Rate 77 75 Respiratory Rate 17 17 Blood Pressure 170/72 O2 Sat by Pulse Oximetry 96 99 Oxygen Delivery Method Oxygen Flow Rate FIO2% 10/04/22 20:45 10/04/22 20:45 10/04/22 19:00 Temperature Pulse Rate 65 Respiratory Rate Blood Pressure O2 Sat by Pulse Oximetry 98 Oxygen Delivery Method Nasal Cannula Nasal Cannula Oxygen Flow Rate 2 2 FIO2% 28 10/04/22 19:00 10/04/22 20:00 10/04/22 21:00 Temperature 98.2 F Pulse Rate 68 64 64 Respiratory Rate 18 17 19 Blood Pressure 133/63 152/65 137/59 O2 Sat by Pulse Oximetry 95 97 91 L Oxygen Delivery Method Oxygen Flow Rate FIO2% 10/04/22 22:00 10/04/22 23:00 10/05/22 00:00 Temperature 98.1 F Pulse Rate 54 L 58 L 55 L Respiratory Rate 18 25 H 18 Blood Pressure 183/79 151/63 116/87 O2 Sat by Pulse Oximetry 98 99 97 Oxygen Delivery Method Oxygen Flow Rate FIO2% 10/05/22 01:00 10/05/22 02:00 10/05/22 03:00 Temperature Pulse Rate 52 L 50 L 50 L Respiratory Rate 17 16 17 Blood Pressure 120/55 131/81 138/76 O2 Sat by Pulse Oximetry 98 98 97 Oxygen Delivery Method Oxygen Flow Rate FIO2% 10/05/22 04:00 10/05/22 05:00 10/04/22 23:01 Temperature 97.9 F Pulse Rate 53 L 54 L Respiratory Rate 16 14 Blood Pressure 166/76 175/74 151/63 O2 Sat by Pulse Oximetry 97 96 Oxygen Delivery Method Oxygen Flow Rate FIO2% 10/04/22 23:15 10/04/22 23:30 10/04/22 23:45 Temperature Pulse Rate 50 L 50 L 56 L Respiratory Rate 18 18 17 Blood Pressure O2 Sat by Pulse Oximetry 99 98 97 Oxygen Delivery Method Oxygen Flow Rate FIO2% 10/05/22 00:00 10/05/22 00:01 10/05/22 00:01 Temperature Pulse Rate 56 L 55 L Respiratory Rate 18 18 Blood Pressure 116/87 O2 Sat by Pulse Oximetry 96 97 Oxygen Delivery Method Oxygen Flow Rate FIO2% 10/05/22 00:15 10/05/22 00:30 10/05/22 00:45 Temperature Pulse Rate 56 L 51 L 52 L Respiratory Rate 17 19 18 Blood Pressure O2 Sat by Pulse Oximetry 98 98 98 Oxygen Delivery Method Oxygen Flow Rate FIO2% 10/05/22 01:00 10/05/22 01:01 10/05/22 01:01 Temperature Pulse Rate 54 L 53 L Respiratory Rate 17 16 Blood Pressure 120/55 O2 Sat by Pulse Oximetry 96 98 Oxygen Delivery Method Oxygen Flow Rate FIO2% 10/05/22 01:15 10/05/22 01:30 10/05/22 01:45 Temperature Pulse Rate 53 L 55 L 49 L Respiratory Rate 17 17 17 Blood Pressure O2 Sat by Pulse Oximetry 98 98 99 Oxygen Delivery Method Oxygen Flow Rate FIO2% 10/05/22 02:00 10/05/22 02:01 10/05/22 02:01 Temperature Pulse Rate 50 L 50 L Respiratory Rate 16 16 Blood Pressure 131/81 O2 Sat by Pulse Oximetry 96 98 Oxygen Delivery Method Oxygen Flow Rate FIO2% 10/05/22 02:15 10/05/22 02:30 10/05/22 02:45 Temperature Pulse Rate 51 L 52 L 53 L Respiratory Rate 16 16 17 Blood Pressure O2 Sat by Pulse Oximetry 98 98 98 Oxygen Delivery Method Oxygen Flow Rate FIO2% 10/05/22 03:00 10/05/22 03:01 10/05/22 03:01 Temperature Pulse Rate 53 L 50 L Respiratory Rate 17 17 Blood Pressure 136/76 O2 Sat by Pulse Oximetry Oxygen Delivery Method Oxygen Flow Rate FIO2% 10/05/22 03:15 10/05/22 03:30 10/05/22 03:45 Temperature Pulse Rate 49 L 49 L 56 L Respiratory Rate 17 16 16 Blood Pressure O2 Sat by Pulse Oximetry Oxygen Delivery Method Oxygen Flow Rate FIO2% 10/05/22 04:00 10/05/22 04:01 10/05/22 04:01 Temperature Pulse Rate 54 L 53 L Respiratory Rate 15 16 Blood Pressure 166/76 O2 Sat by Pulse Oximetry Oxygen Delivery Method Oxygen Flow Rate FIO2% 10/05/22 04:15 10/05/22 04:30 10/05/22 04:45 Temperature Pulse Rate 48 L 48 L 49 L Respiratory Rate 18 16 15 Blood Pressure O2 Sat by Pulse Oximetry Oxygen Delivery Method Oxygen Flow Rate FIO2% 10/05/22 05:00 10/05/22 05:15 10/05/22 05:30 Temperature Pulse Rate 50 L 48 L 48 L Respiratory Rate 17 17 16 Blood Pressure O2 Sat by Pulse Oximetry Oxygen Delivery Method Oxygen Flow Rate FIO2% 10/05/22 05:45 10/05/22 06:00 10/05/22 06:02 Temperature Pulse Rate 49 L 60 58 L Respiratory Rate 17 22 19 Blood Pressure O2 Sat by Pulse Oximetry Oxygen Delivery Method Oxygen Flow Rate FIO2% 10/05/22 06:02 10/05/22 06:04 10/05/22 06:04 Temperature Pulse Rate 54 L Respiratory Rate 12 Blood Pressure 198/79 175/74 O2 Sat by Pulse Oximetry Oxygen Delivery Method Oxygen Flow Rate FIO2% 10/05/22 06:15 10/05/22 06:30 10/05/22 06:45 Temperature Pulse Rate 58 L 54 L 55 L Respiratory Rate 19 13 14 Blood Pressure O2 Sat by Pulse Oximetry Oxygen Delivery Method Oxygen Flow Rate FIO2% 10/05/22 07:00 10/05/22 07:01 10/05/22 07:01 Temperature Pulse Rate 52 L 53 L Respiratory Rate 14 12 Blood Pressure 164/79 O2 Sat by Pulse Oximetry Oxygen Delivery Method Oxygen Flow Rate FIO2% 10/05/22 07:15 10/05/22 07:30 10/05/22 07:45 Temperature Pulse Rate 53 L 59 L 61 Respiratory Rate 19 16 15 Blood Pressure O2 Sat by Pulse Oximetry Oxygen Delivery Method Oxygen Flow Rate FIO2% 10/05/22 08:00 10/05/22 08:01 10/05/22 08:01 Temperature Pulse Rate 56 L 58 L Respiratory Rate 12 13 Blood Pressure 164/102 O2 Sat by Pulse Oximetry Oxygen Delivery Method Oxygen Flow Rate FIO2% 10/05/22 08:03 10/05/22 08:03 10/05/22 08:45 Temperature Pulse Rate 60 Respiratory Rate 19 Blood Pressure 162/87 O2 Sat by Pulse Oximetry Oxygen Delivery Method Nasal Cannula Oxygen Flow Rate 2 FIO2% 28 10/05/22 08:45 10/05/22 07:00 10/05/22 08:15 Temperature Pulse Rate 70 66 Respiratory Rate 19 Blood Pressure O2 Sat by Pulse Oximetry 98 Oxygen Delivery Method Nasal Cannula Oxygen Flow Rate 2 FIO2% 10/05/22 08:30 10/05/22 08:45 10/05/22 09:00 Temperature Pulse Rate 57 L 61 61 Respiratory Rate 12 22 22 Blood Pressure O2 Sat by Pulse Oximetry Oxygen Delivery Method Oxygen Flow Rate FIO2% 10/05/22 09:15 Temperature Pulse Rate 60 Respiratory Rate 19 Blood Pressure O2 Sat by Pulse Oximetry Oxygen Delivery Method Oxygen Flow Rate FIO2% Labs: Laboratory Last Values WBC 7.9 X10^3/uL (3.6-10.0) 10/04/22 05:25 RBC 3.50 X10^6/uL (3.5-5.4) 10/04/22 05:25 Hgb 9.9 g/dL (12.0-16.0) L 10/04/22 05:25 Hct 30.5 % (36.0-47.0) L 10/04/22 05:25 MCV 87.3 fL (80.0-100.0) 10/04/22 05:25 MCH 28.4 pg (27.0-34.0) 10/04/22 05:25 MCHC 32.5 g/dL (33.0-35.0) L 10/04/22 05:25 RDW 15.1 % (11.6-16.5) 10/04/22 05:25 Plt Count 111 X10^3/uL (150.0-450.0) L 10/04/22 05:25 MPV 10.8 fL (7.4-11.0) 10/04/22 05:25 Neut % (Auto) 68.3 % (42.0-75.0) 10/04/22 05:25 Lymph % (Auto) 21.7 % (21.0-51.0) 10/04/22 05:25 [place] % (Auto) 6.7 % (0.0-13.0) 10/04/22 05:25 Eos % (Auto) 3.0 % (0.9-2.9) H 10/04/22 05:25 Baso % (Auto) 0.3 % (0.2-1.0) 10/04/22 05:25 Neut # (Auto) 5.4 x10^3/uL (2.2-4.8) H 10/04/22 05:25 Lymph # (Auto) 1.7 X10^3/uL (1.3-2.9) 10/04/22 05:25 [place] # (Auto) 0.5 x10^3/uL (0.3-0.8) 10/04/22 05:25 Eos # (Auto) 0.2 x10^3/uL (0.0-0.2) 10/04/22 05:25 Baso # (Auto) 0.0 X10^3/uL (0.0-0.1) 10/04/22 05:25 Absolute Nucleated RBC 0.0 /100WBC 10/04/22 05:25 PT 14.4 SECONDS (11.8-14.3) 10/02/22 17:57 INR Target Range - 10/02/22 17:57 INR 1.15 (0.8-1.3) 10/02/22 17:57 APTT 111.7 SECONDS (22.9-36.5) H 10/04/22 05:25 PTT Comment - 10/04/22 05:25 Fibrinogen 368 mg/dL (239-489) 10/04/22 05:25 Sodium 138 mmol/L (136-145) 10/03/22 06:05 Corrected Sodium 141 mmol/L (136-145) 10/03/22 06:05 Potassium 4.7 mmol/L (3.5-5.1) 10/03/22 06:05 Chloride 104 mmol/L (98-107) 10/03/22 06:05 Carbon Dioxide 28.8 mmol/L (21-32) 10/03/22 06:05 BUN 14 mg/dL (7-18) 10/03/22 06:05 Creatinine 1.08 mg/dL (0.55-1.02) H 10/03/22 06:05 Est GFR (MDRD) Af Amer > 60 (>60) 10/03/22 06:05 Est GFR (MDRD) Non-Af 55 (>60) L 10/03/22 06:05 Glucose 207 mg/dL (65-99) H 10/03/22 06:05 POC Glucose (mg/dL) 224 mg/dL (65-99) H 10/05/22 06:08 Calcium 7.9 mg/dL (8.5-10.1) L 10/03/22 06:05 Corrected Calcium 8.9 mg/dL (8.5-10.1) 10/03/22 06:05 Total Bilirubin 0.30 mg/dL (0.2-1.0) 10/03/22 06:05 AST 39 Units/L (15-37) H 10/03/22 06:05 ALT 64 Units/L (12-78) 10/03/22 06:05 Alkaline Phosphatase 117 Units/L (46-116) H 10/03/22 06:05 Total Protein 5.9 g/dL (6.4-8.2) L 10/03/22 06:05 Albumin 2.7 g/dL (3.4-5.0) L 10/03/22 06:05 Globulin 3.2 g/dL (2.5-4.5) 10/03/22 06:05 Albumin/Globulin Ratio 0.8 Ratio (1.1-2.1) L 10/03/22 06:05 Reason For Visit: acute ischemia left leg Discharge Date Discharge Date: 10/05/22 Discharge Diagnosis All Active Problems (Updated 10/02/22 @ 23:44 by Dexter Durand) Factor II deficiency (Acute) History of breast cancer (Acute) Congestive heart failure (Acute) GERD (gastroesophageal reflux disease) (Acute) Hypertension (Acute) Critical limb ischemia of left lower extremity (Acute) Vein compression (Acute) PVD (peripheral vascular disease) (Acute) HLD (hyperlipidemia) (Acute) NSTEMI (non-ST elevated myocardial infarction) (Acute) Elevated troponin (Acute) COPD (chronic obstructive pulmonary disease) (Acute) Diabetes (Acute) Hypotension (Acute) Shortness of breath (Acute) Plan of Treatment: Continue with present treatment and follow up plan. Pt is to keep follow up appointment as instructed and take medications as ordered. Discharge Medications Discharge Medications: clonazepam [From Klonopin] Allergy (Verified 07/30/22 11:31) codeine Allergy (Verified 01/08/22 09:58) morphine Allergy (Verified 07/30/22 11:31) Sulfa (Sulfonamide Antibiotics) [SULFA] Allergy (Verified 01/08/22 09:58) CONTINUE taking the following medications albuterol sulfate 90 mcg/actuation aerosol inhaler 2 inh inhalation QID 10/02/22 [History] atenolol 25 mg tablet 1 tab PO BID 10/02/22 [History] atorvastatin 20 mg tablet 1 tab PO QDAY 10/02/22 [History] budesonide-formoterol HFA 160 mcg-4.5 mcg/actuation aerosol inhaler (Symbicort) 2 inh inhalation Q12H 10/02/22 [History] clopidogrel 75 mg tablet 1 tab PO QDAY 10/02/22 [History] dulaglutide 3 mg/0.5 mL subcutaneous pen injector (Trulicity) 3 mg subcut WEEKLY 10/02/22 [History] fenofibrate nanocrystallized 145 mg tablet 1 tab PO QDAY 10/02/22 [History] furosemide 40 mg tablet 1 tab PO QDAY 10/02/22 [History] lisinopril 20 mg tablet 1 tab PO HS 10/02/22 [History] omeprazole 40 mg capsule,delayed release 1 cap PO DAILY 10/02/22 [History] oxycodone-acetaminophen 5 mg-325 mg tablet 1 tab PO Q4-6H PRN Pain 10/02/22 [History] potassium chloride 20 mEq tablet,extended release(part/cryst) 1 tab PO DAILY 10/02/22 [History] pregabalin 150 mg capsule 1 cap PO BID 10/02/22 [History] rivaroxaban 20 mg tablet (Xarelto) 1 tab PO DAILY 10/02/22 [History] sertraline 100 mg tablet 1 tab PO QDAY 10/02/22 [History] Zofran 4mg , 1 po q 6 hr PRN pain, #10 Discharge Disposition Assessment: see hospital course above Discharge Plan Discharge Plan Hospital Course: 61 year old female who has had significant arterial interventions of the left leg within the last year. She presented to the hospital in [place], [place] with findings consistent with acute ischemia of the left leg and rest pain. 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 She was transferred to [facility] for care. We started her on a Heparin drip and the next day she underwent placement of a EKOS thrombolytic catheter. She underwent 12 hours of thrombolysis with tPA was taken back to the operating room the next day where repeat arteriogram showed the vessel to be open with evidence of severe stenosis at the takeoff of the left superficial femoral artery. This was stented open and she has done well. She has palpable pulses at her left ankle. She will be discharged home on her usual medications to include Xarelto and Plavix. She will follow up with me in 1 week. She has had some nausea last couple days which is improved and she will be given prescription for Zofran , 4 mg , 1 po q 6 hr PRN nausea. She will follow up with me in 1 week. Patient Disposition: 01 HOME, SELF-CARE Condition: Stable Health Concerns: Post Hospitalization: new medications and changes needed to prevent readmission or further decline. Pt educated and given instructions on all concerns. Care Plan Goals: Problem: Pain/Alteration in Comfort Goal: Improve/ Resolve Pain; Achieve Pain Tolerance Instructions: Take pain medications as prescribed. Contact your primary care provider if your pain is unrelieved or worsens. Follow up with primary care provider as directed. Plan of Treatment: Continue with present treatment and follow up plan. Pt is to keep follow up appointment as instructed and take medications as ordered. Assessment: see hospital course above Prescription drug monitoring program results: PDMP reviewed and no concerns identified Prescriptions: Continued furosemide 40 mg tablet 1 tab PO QDAY atorvastatin 20 mg tablet 1 tab PO QDAY lisinopril 20 mg tablet 1 tab PO HS sertraline 100 mg tablet 1 tab PO QDAY atenolol 25 mg tablet 1 tab PO BID clopidogrel 75 mg tablet 1 tab PO QDAY omeprazole 40 mg capsule,delayed release(DR/EC) 1 cap PO DAILY oxycodone-acetaminophen 5-325 mg tablet 1 tab PO Q4-6H PRN (Reason: Pain) potassium chloride 20 mEq tablet,ER particles/crystals 1 tab PO DAILY albuterol sulfate 90 mcg/actuation HFA aerosol inhaler 2 inh inhalation QID pregabalin 150 mg capsule 1 cap PO BID fenofibrate nanocrystallized 145 mg tablet 1 tab PO QDAY budesonide-formoterol [Symbicort] 160-4.5 mcg/actuation HFA aerosol inhaler 2 inh inhalation Q12H Xarelto 20 mg tablet 1 tab PO DAILY Trulicity 3 mg/0.5 mL pen injector 3 mg SUBCUT WEEKLY Label Comments: [NO ORIGINAL SIG] Follow ups/Referrals Follow ups/Referrals: Dexter Durand [STAFF PHYSICIAN] - 10/10/22 11:00 am Instructions Instructions: Heart Failure, Self Care, [id number], Smokeless Tobacco Information, Adult, Preventing Exposure to Secondhand Smoke, Adult Stand Alone Forms: Excuse From Work or School
--- NOTE | 2022-10-05 12:23 | DR.OPNOTE ---
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 Procedure Date Date Of Procedure: 10/04/22 Procedure: PROCEDURE: arteriogram left leg, stenting left proximal superficial femoral artery NARRATIVE: Patient had undergone placement of EKOS catheter of the left leg yesterday and had undergone thrombolysis for 12 hours. She was returned to the operative suite and placed in the supine position and both groins prepped and draped in sterile fashion. The EKOS catheter has been removed leaving only the destination sheath in the right groin .Patient was given intravenous sedation which was supervised by myself. Time out for the procedure obtained . The patient was given 3000 units of intravenous Heparin. Arteriogram carried out through the destination sheath showing the superficial femoral artery now to be opened and the thrombosis completely resolved . There was severe stenosis at the takeoff of the left superficial femoral artery. Guide wire was placed all the way down to the popliteal artery as selective catherization and arteriogram carried out of the entire left leg showing normal flow to the foot with three vessel runoff. A 7 mm x80 mm [employer] Georgette stent was placed at the take-off of the superficial femoral artery and dilated with a 7 mm by 40 mm balloon . Post-procedure arteriogram showed excellent result with resolution of the severe stenosis. Patient given 30 mg of intravenous Protamine. The destination sheath pulled back into the aorta and the 0. 035 inch wire placed into the aorta. The destination sheath exchanged for an Angio seal device used to close the puncture of the right femoral artery . Patient had dressing applied to the right groin and the patient returned to the ICU in good condition. Type of Anesthesia: Local (0.5% Marcaine) Anesthesia Comment: plus MAC Findings: Severe stenosis of takeoff of the left superficial femoral artery. Type of Fluids Used:: Lactated Ringers Total Amount of Fluid Infused:: 200 cc EBL: < 25 cc Hardware: 7mm x 80 mm Georgette stent placed in the left proximal superficial femoral artery. Complications:: none Needle/Sponge Count:: correct Disposition/Condition: Pt. tolerated procedure without difficulty. Taken to the ICU in stable condition.
== END 2022-10-05 10:32 | disposition home or self-care (01) | DRG 253 ==
LOC: ICU 14:16
PROVIDERS: ADMIT Surgery; ATTEND Surgery
DX: I87.1 Compression of vein; Z95.820 Peripheral vascular angioplasty status with implants and grafts; F17.210 Nicotine dependence, cigarettes, uncomplicated; I74.3 Embolism and thrombosis of arteries of the lower extremities; J44.9 Chronic obstructive pulmonary disease, unspecified; D68.2 Hereditary deficiency of other clotting factors; E11.9 Type 2 diabetes mellitus without complications; I10 Essential (primary) hypertension; Z85.3 Personal history of malignant neoplasm of breast; E78.5 Hyperlipidemia, unspecified; I25.2 Old myocardial infarction; I70.222 Atherosclerosis of native arteries of extremities with rest pain, left leg